=== PATIENT | male | born 1955 | race Caucasian/White ===

== ENCOUNTER → 2017-08-25 13:37 | Outpatient (CLI) | payer OTHER, SELFPAY ==
--- NOTE | 2017-08-25 13:53 | DI.CT.S_ITS ---
PROCEDURE: CT ANGIO UE LT INDICATIONS: diminished pulse in extremity Left, lung cancer TECHNIQUE: After the administration of intravenous contrast, 2.5 mm sections acquired from the aortic arch through the symptomatic arm, with optional delayed image acquisition from the elbows to the fingers. 3-dimensional maximum intensity projection (MIP) coronal and sagital reformats, and/or 3-dimensional volume rendering reformatting was then performed. For radiation dose reduction, the following was used: automated exposure control. COMPARISON: None. FINDINGS: Image quality: Excellent. Thoracic aorta: Normal in caliber and patent. Great vessels: There is occlusion of the proximal left subclavian artery just beyond the ostium. Distally, the left subclavian artery reconstitutes from collaterals. The left carotid artery and innominate artery are patent and normal caliber. The right subcutan and carotid arteries patent. Upper extremity: The distal left Subcutan artery reconstitutes from collaterals. The axillary artery is patent and normal in caliber. Extravascular tissues: There is a left lower lobe lung mass. Mediastinal and hilar lymphadenopathy is present consistent with metastases. Moderate emphysema. IMPRESSION: 1. Occlusion of the proximal left subclavian artery. The distally left subclavian artery reconstitutes from collaterals. The axillary artery appears patent and normal in caliber. 2. A left lower lobe lung mass. 3. Mediastinal and hilar lymphadenopathy consistent with metastasis. 4. Moderate emphysema. The result was discussed with Kesha Sommers in Dr. Katz's office. She will give the result to the on-call physician covering Dr. Katz. Dictated by: Ciara Gonsales M.D. on 08/25/2017 at 16:54 Approved by: Ciara Gonsales M.D. on 08/25/2017 at 17:01
--- NOTE | 2017-08-25 13:53 | DI.CT.S_ITS ---
PROCEDURE: CT ANGIO CHEST INDICATIONS: lung cancer with metastasis TECHNIQUE: After the administration of intravenous contrast, 2 mm thick sections acquired from the pulmonary apices to the posterior costophrenic angles. 3-dimensional maximum intensity projection (MIP) coronal and sagittal reformats were then acquired through the thorax. For radiation dose reduction, the following was used: automated exposure control, adjustment of mA and/or kV according to patient size. COMPARISON: [facility], CT, CT ANGIO UE LT, 08/25/2017, 13:50. [facility], CT, CHEST/ABD/PEL WITH CONTRAST, 11/01/2016, 11:29. [facility], CT, CHEST/ABD/PEL WITH CONTRAST, 04/27/2017, 12:03. FINDINGS: Image quality: Excellent. Pulmonary arteries: Pulmonary arteries are normal in size, and demonstrate no intraluminal filling defects to suggest central pulmonary embolism. Lungs and pleura: There is a 2.2 cm left lower lobe mass in the retrocardiac region, unchanged in size. There is left basilar atelectasis. Moderate centrilobular emphysema. No pleural effusions or pneumothorax. Central and peripheral airways are patent. Mediastinum: Heart size is normal, without pericardial effusion. Stable mediastinal and hilar lymphadenopathy. A 1.5 cm precarinal lymph node and a 2.0 cm subcarinal lymph node are both unchanged in size compared to the last exam on 04/27/2017. Prominent hilar lymph nodes are also unchanged. Thoracic aorta is normal in caliber and enhancement. There is proximal occlusion of the left subclavian artery Esophagus is normal in caliber, without hiatal hernia. Bones and chest wall: No suspicious bony lesions. Ribs and thoracic spine appear intact throughout. Thyroid gland is normal. No axillary or supraclavicular adenopathy. Abdomen: Visualized upper abdominal solid organs appear normal in the early arterial phase of enhancement. IMPRESSION: 1. No evidence for central pulmonary embolism. 2. Stable left lower lung mass. 3. Stable mediastinal lymphadenopathy. 4. Occlusion of the proximal left subclavian artery. The result was discussed with CAYLA Sommers, Dr. Shelby Katz's nurse prior to dictation. Dictated by: Ciara Gonsales M.D. on 08/25/2017 at 16:41 Approved by: Ciara Gonsales M.D. on 08/25/2017 at 16:54
== END ==
PROVIDERS: PCP Family Medicine; Visit Provider Internal Medicine
DX: C34.90 Malignant neoplasm of unspecified part of unspecified bronchus or lung (principal); R59.0 Localized enlarged lymph nodes; I70.208 Unspecified atherosclerosis of native arteries of extremities, other extremity
CPT/HCPCS: 71275; 73206; Q9967

== ENCOUNTER → 2017-09-29 13:26 | Outpatient (CLI) | payer OTHER, SELFPAY ==
--- NOTE | 2017-09-29 14:11 | DI.CT.S_ITS ---
PROCEDURE: CT CHEST ABD PEL W CON INDICATIONS: restaging for lung cancer TECHNIQUE: After the administration of oral and intravenous contrast, 5 mm thick sections acquired from the lung apices to the symphysis. 5 mm coronal and sagittal reformats were performed, with additional 7 mm coronal MIP reformats through the lungs. For radiation dose reduction, the following was used: automated exposure control, adjustment of mA and/or kV according to patient size. COMPARISON: [facility], [place], PET NECK TO MID THIGH STD, 08/15/2015, 13:59. [facility], CT, CHEST/ABDOMEN WITH CONTRAST, 04/15/2016, 10:42. [facility], CT, CHEST/ABDOMEN WITH CONTRAST, 07/16/2016, 14:58. [facility], CT, CHEST/ABD/PEL WITH CONTRAST, 11/01/2016, 11:29. [facility], CT, CHEST/ABD/PEL WITH CONTRAST, 04/27/2017, 12:03. [facility], CT, CT ANGIO CHEST, 08/25/2017, 13:50. FINDINGS: Image quality: Excellent. CHEST: Lungs and pleura: Upper lobe predominant centrilobular emphysema. In the anteromedial left lower lobe is again noted a 2 cm mass, unchanged. In the posteromedial left lower lobe, series 3/image 54, at the level of the diaphragm, is a new 6.3 mm slightly spiculated nodule that is suspect for a satellite metastasis. No pleural effusions or pneumothorax. Central and peripheral airways appear patent and normal in caliber. Mediastinum: Heart size is normal. No pericardial effusion. Stable mediastinal and hilar adenopathy by size criteria, precarinal node measuring 15 mm and subcarinal measuring 20 mm as before. Thoracic aorta and central pulmonary arteries are normal in size. Occlusion of the left subclavian artery in the proximal segment, reconstituted distally by collateral flow, is again noted. Esophagus is normal in caliber. No hiatal hernia. Chest wall: Right-sided port with tip in the SVC. No axillary or supraclavicular adenopathy by size criteria. Thyroid gland appears normal. ABDOMEN: Solid organs: Liver is normal in size and enhancement. Gallbladder appears normal. Biliary system is non dilated. Pancreas enhances normally. Spleen is normal in size and enhancement. No definite adrenal nodules, although the left adrenal is plump. Kidneys demonstrate normal size and enhancement, without hydronephrosis. Peritoneum and bowel: Bowel loops demonstrate normal wall thickness and caliber. Surgical sutures at the rectosigmoid junction No free fluid or air. Nodes and vessels: No retroperitoneal or mesenteric adenopathy by size criteria. Aorta and inferior vena cava are normal in size. Miscellaneous: No ventral hernias. PELVIS: Genitourinary: Bladder wall thickness is normal. Miscellaneous: No inguinal hernias or adenopathy. Bones: No suspicious bony lesions. No vertebral body compression fractures. IMPRESSION: 1. A new subcentimeter spiculated nodule is evident at the left lung base posteromedially. Attention on follow up study recommended. Exam otherwise is stable with the left lower lobe mass lesion, mediastinal adenopathy and upper lobe emphysema again noted. 2. Occlusion left subclavian artery as before. 3. Evidence of prior bowel resection at the rectosigmoid junction. Dictated by: Bill Rader M.D. on 09/29/2017 at 16:10 Approved by: Bill Rader M.D. on 09/29/2017 at 16:34
== END ==
PROVIDERS: PCP Family Medicine; Visit Provider Nurse Practitioner Gerontology
DX: C34.90 Malignant neoplasm of unspecified part of unspecified bronchus or lung (principal); I70.208 Unspecified atherosclerosis of native arteries of extremities, other extremity; K63.89 Other specified diseases of intestine
CPT/HCPCS: 71260; 74177; Q9967

== ENCOUNTER → 2017-12-01 12:39 | Outpatient (CLI) | payer OTHER, SELFPAY ==
--- NOTE | 2017-12-01 13:05 | DI.CT.S_ITS ---
PROCEDURE: CT CHEST ABD PEL W CON INDICATIONS: new left lung nodule CT 09/29/2017 TECHNIQUE: After the administration of oral and intravenous contrast, 5 mm thick sections acquired from the lung apices to the symphysis. 5 mm coronal and sagittal reformats were performed, with additional 7 mm coronal MIP reformats through the lungs. For radiation dose reduction, the following was used: automated exposure control, adjustment of mA and/or kV according to patient size. COMPARISON: [facility], CT, CHEST/ABD/PEL WITH CONTRAST, 04/27/2017, 12:03. [facility], CT, CHEST/ABD/PEL WITH CONTRAST, 11/01/2016, 11:29. [facility], CT, CT CHEST ABD PEL W CON, 09/29/2017, 15:19. FINDINGS: Image quality: Excellent. CHEST: Lungs and pleura: No acute consolidation. 2 cm mass seen in the anteromedial left lower lobe is grossly unchanged image 60 series 6. The previously described posteromedial left lower lobe nodule (6-7 mm) is less conspicuous on the current examination are decreased in size. This appearance could be related to slice registration artifact. There is background emphysematous change. Scattered atelectasis as before No pleural effusions or pneumothorax. Central and peripheral airways appear patent and normal in caliber. The Mediastinum: Heart size is normal. No pericardial effusion. Right hilar lymph nodes are grossly unchanged image 42 series 7. There also precarinal and subcarinal lymph nodes which are grossly unchanged. Occlusion of the left subclavian artery as before Esophagus is normal in caliber. No hiatal hernia. Chest wall: No axillary or supraclavicular adenopathy by size criteria. Thyroid gland negative. ABDOMEN: Solid organs: Liver is normal in size and enhancement. Gallbladder negative. Biliary system is non dilated. Pancreas enhances normally. Spleen is normal in size and enhancement. No adrenal nodules. Kidneys demonstrate normal size and enhancement, without hydronephrosis. Peritoneum and bowel: Bowel loops demonstrate normal wall thickness and caliber. No free fluid or air. Nodes and vessels: No retroperitoneal or mesenteric adenopathy by size criteria. Aorta and inferior vena cava are normal in size. Miscellaneous: No ventral hernias. PELVIS: Genitourinary: Bladder wall thickness is normal. Miscellaneous: No inguinal hernias or adenopathy. Bones: No suspicious bony lesions. No vertebral body compression fractures. IMPRESSION: Redemonstrated anteromedial left lower lobe mass which is grossly unchanged. Mediastinal lymphadenopathy as before The previously described additional sub-centimeter posteromedial left lower lobe nodule appears less conspicuous although potentially this could be related to slice registration artifact given the small size. Elsewhere, grossly stable exam Dictated by: Dandre Yañez M.D. on 12/01/2017 at 16:38 Approved by: Dandre Yañez M.D. on 12/01/2017 at 16:47
== END ==
PROVIDERS: PCP Family Medicine; Visit Provider Nurse Practitioner Gerontology
DX: C34.90 Malignant neoplasm of unspecified part of unspecified bronchus or lung (principal); R59.0 Localized enlarged lymph nodes
CPT/HCPCS: 71260; 74177; Q9967

== ENCOUNTER → 2018-03-09 14:03 | Outpatient (CLI) | payer OTHER, SELFPAY ==
--- NOTE | 2018-03-09 | DI.CT.S_ITS ---
PROCEDURE: CT CHEST ABD PEL W CON INDICATIONS: Assess response to treatment, previous imaging new spiculated lung TECHNIQUE: After the administration of oral and intravenous contrast, 5 mm thick sections acquired from the lung apices to the symphysis. 5 mm coronal and sagittal reformats were performed, with additional 7 mm coronal MIP reformats through the lungs. For radiation dose reduction, the following was used: automated exposure control, adjustment of mA and/or kV according to patient size. COMPARISON: [facility], [place], PET NECK TO MID THIGH STD, 08/15/2015, 13:59. [facility], CT, CHEST/ABD/PEL WITH CONTRAST, 11/01/2016, 11:29. [facility], CT, CHEST/ABD/PEL WITH CONTRAST, 04/27/2017, 12:03. [facility], CT, CT CHEST ABD PEL W CON, 09/29/2017, 15:19. [facility], CT, CT CHEST ABD PEL W CON, 12/01/2017, 13:25. FINDINGS: Image quality: Excellent. CHEST: Lungs and pleura: There is a spiculated mass in the left lower lobe anteriorly just behind the heart measuring 2.5 x 2.2 cm. Compared to the last examination, the mass appears unchanged in size. A 0.7 x 1.4 cm pleural thickening is seen along the major fissure lateral to the mass, similar in appearance. A 5 mm nodule is seen in the left lung base just above the left hemidiaphragm, slightly decreased in size compared to 12/01/2017 (previously 8 mm). Moderate to severe centrilobular emphysema. There is left lower lobes scars and atelectasis. No acute airspace opacities. No pleural effusions or pneumothorax. Central and peripheral airways appear patent and normal in caliber. Mediastinum: Heart size is normal. No pericardial effusion. There is a 1.5 x 2.3 cm subcarinal lymph node, which appears unchanged in size. A 1.5 x 1.6 cm precarinal lymph node is also stable. Several prominent right hilar lymph nodes are unchanged. Thoracic aorta and central pulmonary arteries are normal in size. Again noted is occlusion of the left subclavian artery. Esophagus is normal in caliber. No hiatal hernia. Chest wall: No axillary or supraclavicular adenopathy by size criteria. Thyroid gland is normal. ABDOMEN: Solid organs: Liver is normal in size and enhancement. Gallbladder is normal. Biliary system is non dilated. Pancreas enhances normally. Spleen is normal in size and enhancement. No adrenal nodules. Kidneys demonstrate normal size and enhancement, without hydronephrosis. Peritoneum and bowel: There is surgical anastomosis at the rectosigmoid junction. Bowel loops demonstrate normal wall thickness and caliber. No free fluid or air. Nodes and vessels: No retroperitoneal or mesenteric adenopathy by size criteria. Aorta and inferior vena cava are normal in size. Miscellaneous: No ventral hernias. PELVIS: Genitourinary: Bladder wall thickness is normal. Miscellaneous: No inguinal hernias or adenopathy. Bones: There is a 5 cm lucency in sternum, unchanged. This lesion demonstrates no increased FDG uptake on a prior head CT head, consistent with benign etiology No vertebral body compression fractures. IMPRESSION: 1. Stable spiculated mass in the left lower lobe. Thickening of the left major fissure adjacent to the mass appear similar. There is slight interval decrease in size of a smaller nodule in the left lung base. 2. Stable mediastinal and hilar lymphadenopathy. 3. 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 Dictated by: Ciara Gonsales M.D. on 03/09/2018 at 15:15 Approved by: Ciara Gonsales M.D. on 03/09/2018 at 18:18
== END ==
PROVIDERS: PCP Family Medicine; Visit Provider Internal Medicine Hematology & Oncology
DX: C18.9 Malignant neoplasm of colon, unspecified (principal); C34.00 Malignant neoplasm of unspecified main bronchus; R59.0 Localized enlarged lymph nodes; I77.1 Stricture of artery
CPT/HCPCS: 71260; 74177; Q9967

== ENCOUNTER → 2018-08-14 14:28 | Outpatient (CLI) | payer OTHER, SELFPAY ==
--- NOTE | 2018-08-14 14:31 | DI.CT.S_ITS ---
PROCEDURE: CT CHEST ABD PEL W CON INDICATIONS: Lung cancer follow up TECHNIQUE: After the administration of oral and intravenous contrast, 5 mm thick sections acquired from the lung apices to the symphysis. 5 mm coronal and sagittal reformats were performed, with additional 7 mm coronal MIP reformats through the lungs. For radiation dose reduction, the following was used: automated exposure control, adjustment of mA and/or kV according to patient size. COMPARISON: [place], [place], PET/CT SKULL BASE TO MID THIGH, 11/22/2014, 10:31. [facility], CT, CHEST/ABDOMEN WITH CONTRAST, 09/11/2014, 9:43. [facility], CT, CHEST/ABDOMEN WITH CONTRAST, 04/15/2016, 10:42. [place], [place], PET NECK TO MID THIGH STD, 08/15/2015, 13:59. [facility], CT, CT CHEST ABD PEL W CON, 03/09/2018, 14:49. [facility], CT, CT CHEST ABD PEL W CON, 12/01/2017, 13:25. FINDINGS: Image quality: Mildly degraded by patient motion during image acquisition through the lung bases. CHEST: Lungs and pleura: No acute airspace opacities. The left lower lobe lung mass near the pericardial border has very slightly diminished in size with reference to the prior most recent CT scan from 03/09/18. Again noted is severe COPD with centrilobular emphysema throughout. No pleural effusions or pneumothorax. Central and peripheral airways appear patent and normal in caliber except for stable fibrotic change at the left lower lobe in the area of the prior lung mass, presumably from radiation therapy. Mediastinum: Heart size is normal. No pericardial effusion. No mediastinal or hilar adenopathy by size criteria. Thoracic aorta and central pulmonary arteries are normal in size. Esophagus is normal in caliber. No hiatal hernia. There is a single lucency within the sternal marrow space exactly at the midline, previously present over multiple prior CT scans including in 2015, measuring only 8 mm in maximal dimension. This likely is benign. Chest wall: No axillary or supraclavicular adenopathy by size criteria. Thyroid gland appears normal. ABDOMEN: Solid organs: Liver is normal in size and enhancement. Gallbladder appears normal. Biliary system is non dilated. Pancreas enhances normally. Spleen is normal in size and enhancement. No adrenal nodules. Kidneys demonstrate normal size and enhancement, without hydronephrosis. Peritoneum and bowel: Bowel loops demonstrate normal wall thickness and caliber. No free fluid or air. Nodes and vessels: No retroperitoneal or mesenteric adenopathy by size criteria. Aorta and inferior vena cava are normal in size. Miscellaneous: No ventral hernias. PELVIS: Genitourinary: Bladder wall thickness is normal. Miscellaneous: No inguinal hernias or adenopathy. Bones: No suspicious bony lesions. No vertebral body compression fractures. IMPRESSION: Slight interval reduction in size of the medial left lower lobe lung mass with adjacent fibrotic change, consistent with sequela of radiation therapy into that area. Severe COPD is again noted, no definite metastatic disease is found. As discussed, and 8mm faint lucency within the midline of the sternal marrow space has been present over multiple prior CT scans including in September of 2014 without change and likely benign in origin. Dictated by: Terrell Fishman M.D. on 08/14/2018 at 16:27 Approved by: Terrell Fishman M.D. on 08/14/2018 at 16:37
== END ==
PROVIDERS: PCP Family Medicine; Visit Provider Internal Medicine Hematology & Oncology
DX: C34.32 Malignant neoplasm of lower lobe, left bronchus or lung (principal); J43.2 Centrilobular emphysema
CPT/HCPCS: 71260; 74177; Q9967

== ENCOUNTER 2018-11-14 11:59 | Emergency (ER) | payer OTHER, SELFPAY ==
[2018-11-14 12:07] VITALS: BP 152/89; PULSE 74; RESP 13; TEMP 36.4; O2SAT 89
--- NOTE | 2018-11-14 12:20 | ED_ITS ---
HPI - URI/Sore Throat General Chief Complaint: Upper Respiratory Symptoms Stated Complaint: chemo 11/09 since sob Time Seen by Provider: 11/14/18 12:05 Source: patient and family Mode of arrival: Wheelchair Limitations: no limitations History of Present Illness HPI Narrative: 63-year-old male smoker with history of COPD and lung cancer currently receiving chemotherapy presents with a significant other and a chief c omplaint of increased shortness of breath over the past week or so. He has had no fever chills but does have a cough with increased wheeze. He does not use bronchodilators at home. He has had no sputum production and denies nausea, vomiting nor generalized weakness. He has had a bit of a runny nose and some sneezing. MD Complaint: cough, rhinorrhea and nasal congestion Onset (ago): day(s) Duration: constant Severity: moderate Relieving factors: nothing Exacerbating factors: nothing Able to tolerate fluids by mouth: Yes Treatments prior to arrival: none Related Data Home Medications Medication Instructions Recorded Confirmed polyethylene glycol 3350 [Miralax] 1 dose PO PRN PRN #0 01/05/17 11/09/18 aspirin 81 mg PO DAILY 12/02/17 11/09/18 folic acid 2 mg PO DAILY 04/27/18 11/09/18 hydrocortisone 10 mg PO QPM 11/14/18 11/14/18 hydrocortisone 20 mg PO QAM 11/14/18 11/14/18 oxycodone-acetaminophen 1 tab PO Q6H PRN 11/14/18 11/14/18 Previous Rx's Medication Instructions Recorded promethazine 25 mg PO Q4-6H PRN #120 tab 08/17/18 amlodipine 5 mg tablet 5 mg PO DAILY #90 tab 09/06/18 famotidine 20 mg PO BEDTIME #90 tab 09/28/18 lorazepam 0.5 mg PO BID-TID PRN #45 tab 11/09/18 albuterol sulfate 2 puff INHALATION Q4-6H PRN #8 gram 11/14/18 Allergies Allergy/AdvReac Type Severity Reaction Status Date / Time ciprofloxacin AdvReac Intermediate SEVERE Verified 09/06/18 16:09 NAUSEA zolpidem [From Ambien] AdvReac Intermediate Nausea Verified 09/06/18 16:09 Review of Systems Constitutional Constitutional: Denies chills, Denies fatigue, Denies fever(s), Denies frequent falls, Denies lethargy and Denies weakness Eyes Eyes: Denies change in vision, Denies eye discharge, Denies irritation and Denies loss of vision ENT Ears, Nose, Mouth, and Throat: Denies change in voice, Denies dizziness, Denies neck pain, Denies sore throat and Denies throat swelling Cardiovascular Cardiovascular: Denies chest pain, Denies irregular heart rhythm, Denies lightheadedness, Denies palpitations, Denies dyspnea, Denies dyspnea on exertion and Denies orthopnea Respiratory Respiratory: Reports cough, Denies dyspnea, Denies dyspnea on exertion and Reports wheezing Gastrointestinal Gastrointestinal: Denies abdominal pain, Denies change in bowel habits, Denies diarrhea, Denies nausea and Denies vomiting Genitourinary Genitourinary: Denies hematuria, Denies flank pain, Denies urinary incontinence and Denies urinary urgency Musculoskeletal Musculoskeletal: Denies back pain, Denies muscle weakness, Denies neck pain, Denies numbness and Denies tingling Integumentary/Breasts Skin/Breast: Denies pruritus, Denies erythema, Denies rash and Denies wounds Neurologic Neurologic: Denies behavioral changes, Denies confusion, Denies dizziness, Denies frequent falls, Denies loss of vision, Denies numbness, Denies tingling and Denies weakness Psychiatric Psychiatric: Denies anxiety, Denies behavioral changes, Denies confusion, Denies depression, Denies homicidal ideation and Denies suicidal ideation Endocrine Endocrine: Denies fatigue, Denies flushing and Denies palpitations Hematologic/Lymphatic Hematologic/Lymphatic: Denies easy bruising Allergic/Immunologic Allergic/Immunologic: Denies urticaria, Denies throat swelling and Reports wheezing [facility] Medical History Atrial fibrillation (Resolved 04/2014) Back pain (Chronic) Frequent UTI (Chronic) Lung cancer (Resolved 04/2014) Surgical History History of esophagogastroduodenoscopy (EGD) (Resolved 10/20/16) Status post biopsy (Resolved 04/2014) Status post colonoscopy (Resolved 10/20/16) Status post hemorrhoidectomy (Resolved 07/02/08) Social History Smoking Status: Current some day smoker Social History Smoking Status: Current some day smoker Exam Narrative Exam Narrative: GENERAL: [63] year old patient appears stated age. Chronically ill, thin with temporal wasting, no significant respiratory distress HEAD: Atraumatic. Normocephalic. EYES: Pupils equal round and reactive. Extraocular motions intact. No scleral icterus. No injection or drainage. ENT: Nose without bleeding, purulent drainage. Throat without erythema, to nsillar hypertrophy or exudate. Airway patent. NECK: Trachea midline. Non tender CARDIOVASCULAR: Regular rate and rhythm without murmurs, gallops, or rubs. RESPIRATORY: Decreased breath sounds bilaterally with prolonged expiratory phase and a faint hint of expiratory wheeze GASTROINTESTINAL: Abdomen soft, non-tender, nondistended. EXTREMITIES: No edema or joint tenderness. BACK: Nontender without deformity or crepitance. No flank tenderness. NEURO: AOx3. SKIN: No rash or erythema of visible areas Initial Vital Signs Initial Vital Signs: Vital Signs Temperature 97.6 F 11/14/18 12:07 Pulse Rate 74 11/14/18 12:07 Respiratory Rate 13 11/14/18 12:07 Blood Pressure 152/89 H 11/14/18 12:07 Pulse Oximetry 89 L 11/14/18 12:07 Course Orders Ordered: ED Orders 11/14/18 12:00 B Type Natriuretic Peptide Stat Basic Metabolic Panel Stat Complete Blood Count AUTO DIFF Stat Lactate (Lactic Acid) Stat Magnesium Stat Procalcitonin Stat Troponin & CK Cardiac Panel Stat 11/14/18 12:29 XR chest 2V Stat EKG-12 Lead Stat Measure peak expiratory flow ONCE RT Consult Eval and Treat Now 11/14/18 12:36 Consult to Respiratory Therapy Evaluate & Treat 11/14/18 13:25 Blood Culture Stat Discontinued Medications Albuterol/Ipratropium (Duoneb) 3 ml INH NOW ONE Stop: 11/14/18 12:37 Last Admin: 11/14/18 12:47 Dose: 3 ml Documented by: ZITA Vital Signs Vital signs: Vital Signs - 8 hr 11/14/18 12:07 11/14/18 12:49 11/14/18 13:24 Temperature 97.6 F Pulse Rate 74 64 64 Respiratory Rate 13 16 18 Blood Pressure 152/89 H Pulse Oximetry 89 L 92 92 11/14/18 13:41 Temperature Pulse Rate 74 Respiratory Rate 20 Blood Pressure Pulse Oximetry 91 MDM - URI/Sore Throat Lab Data Result diagrams: 11/14/18 12:00 11/14/18 12:00 Labs: Lab Results 11/14/18 11/14/18 11/14/18 Range/Units 12:00 12:00 12:00 WBC 9.4 (4.5-11.0) X10^3/uL RBC 5.60 (4.5-5.9) X10^6/uL Hgb 17.2 (13.5-17.5) g/dL Hct 52.0 (41-53) % MCV 93.0 (80-100) fL MCH 30.8 (26-34) PG MCHC 33.1 (30-36) % RDW 14.1 (11.6-14.8) % Plt Count 367 (150-400) X10^3/uL Neut % (Auto) 60.8 (50-75) % Lymph % (Auto) 20.4 L (25-40) % [place] % (Auto) 10.7 (3-14) % Eos % (Auto) 7.0 H (2-4) % Baso % (Auto) 1.1 (0-2) % Neut # (Auto) 5700 (3758-9156) /uL Lymph # (Auto) 1900 (7448-6512) /uL [place] # (Auto) 1000 H (0-900) /uL Eos # (Auto) 700 H (0-450) /uL Baso # (Auto) 100 (0-100) /uL Sodium 141 (137-145) mmol/L Potassium 4.0 (3.4-5.1) mmol/L Chloride 101 (98-107) mmol/L Carbon Dioxide 29 (22-32) mmol/L BUN 19 (9-20) mg/dL Creatinine 1.10 (0.66-1.25) mg/dL Estimated GFR > 60.0 (>60) mL/min BUN/Creatinine Ratio 17.3 (6-22) Glucose 109 (80-110) mg/dL Lactate (0.7-2.1) mmol/L Calcium 9.7 (8.4-10.2) mg/dL Magnesium 2.2 (1.6-2.3) mg/dL Total Creatine Kinase 98 (55-170) U/L CK-MB (CK-2) TNP CK-MB (CK-2) Rel Index TNP Troponin I < 0.012 (0.01-0.034) ng/mL B-Natriuretic Peptide < 100 (<100) Procalcitonin < 0.05 (<0.5) ng/mL 11/14/18 Range/Units 12:00 WBC (4.5-11.0) X10^3/uL RBC (4.5-5.9) X10^6/uL Hgb (13.5-17.5) g/dL Hct (41-53) % MCV (80-100) fL MCH (26-34) PG MCHC (30-36) % RDW (11.6-14.8) % Plt Count (150-400) X10^3/uL Neut % (Auto) (50-75) % Lymph % (Auto) (25-40) % [place] % (Auto) (3-14) % Eos % (Auto) (2-4) % Baso % (Auto) (0-2) % Neut # (Auto) (8738-4788) /uL Lymph # (Auto) (3414-1811) /uL [place] # (Auto) (0-900) /uL Eos # (Auto) (0-450) /uL Baso # (Auto) (0-100) /uL Sodium (137-145) mmol/L Potassium (3.4-5.1) mmol/L Chloride (98-107) mmol/L Carbon Dioxide (22-32) mmol/L BUN (9-20) mg/dL Creatinine (0.66-1.25) mg/dL Estimated GFR (>60) mL/min BUN/Creatinine Ratio (6-22) Glucose (80-110) mg/dL Lactate 1.4 (0.7-2.1) mmol/L Calcium (8.4-10.2) mg/dL Magnesium (1.6-2.3) mg/dL Total Creatine Kinase (55-170) U/L CK-MB (CK-2) CK-MB (CK-2) Rel Index Troponin I (0.01-0.034) ng/mL B-Natriuretic Peptide (<100) Procalcitonin (<0.5) ng/mL Imaging Data Chest x-ray: Radiologist's impression: [facility] [address] [place] [id number] XRay Report Signed Patient: Daryl Peña RMR#: [id number] : 6Acct:[id number] Age/Sex: 63 / MDate of Service: 11/14/18 Loc: ED Accession Number: [id number] Procedure: XR chest 2V Ordering Provider: Abundio Lieberman D.O. PROCEDURE: XR CHEST 2V INDICATIONS: shortness of breath TECHNIQUE: 2 views of the chest were acquired. COMPARISON: [facility], CT, CT CHEST ABD PEL W CON, 08/14/2018, 15:51. [facility], CR, CHEST 2 VIEW, 05/23/2015, 11:39. FINDINGS: Surgical changes and devices: Right chest wall Port-A-Cath tip is in SVC Lungs and pleura: Blunting of left costophrenic angle is again seen suggestive of pleural thickening. Linear scarring/atelectasis in left lower lung field is seen. Patient's known left lower lobe mass is again seen, not significantly changed from recent CT study. No pneumothorax. Chronic emphysematous changes are seen. Mediastinum: Mediastinal contours are normal. Heart size is normal. Bones and chest wall: No suspicious bony abnormalities. Soft tissues appear unremarkable. IMPRESSION: Chronic left pleural thickening. Small left lower lobe mass. Left lower lobe linear scarring/atelectasis. No definite focal infiltrate or gross pneumothorax. COPD. Dictated by: Robbie Mosquera M.D. on 11/14/2018 at 13:15 Approved by: Robbie Mosquera M.D. on 11/14/2018 at 13:17 [facility] Narrative Medical decision making narrative: Patient with lung cancer on chemo actually feels quite well given the circumstances. He feels tremendous improvement after bronchodilators. There is no suggestion of underlying infection other than a viral etiology. We talked at length about the possibility of doing extensive CT scans with IV contrast but patient refuses at this point in time given how well he feels. Patient given return precautions and has had questions answered to his apparent satisfaction Discharge Plan Departure Patient Disposition: Home Clinical Impression: Acute exacerbation of chronic obstructive pulmonary disease (COPD) Upper respiratory infection Qualifiers: URI type: unspecified viral URI Qualified Code(s): J06.9 - Acute upper respiratory infection, unspecified Discharge Date/Time: 11/14/18 14:59 Instructions: DI for Shortness of Breath Activity Restrictions/Additional Instructions: *You have been diagnosed with [acute on chronic dyspnea, likely viral upper respiratory infection] *What to do: *Take medications as directed: your prescription has been sent to [facility] at your request *Follow up with your primary care provider in 2-3 days, call for an appointment. Let them know you were seen in the Emergency Department and that we ask that you be seen in follow up *Return to ER if you should have any new, worsening or concerning symptoms Prescriptions: New albuterol sulfate 90 mcg/actuation HFA aerosol inhaler 2 puff INHALATION Q4-6H PRN (Reason: shortness of breath or wheezing) Qty: 8 RF: 0 No Action polyethylene glycol 3350 [Miralax] 17 gram/dose Powder 1 dose PO PRN PRN (Reason: Constipation) Qty: 0 RF: 0 amlodipine 5 mg tablet 5 mg PO DAILY Qty: 90 RF: 3 aspirin 81 mg Tablet,Delayed Release (Dr/Ec) 81 mg PO DAILY RF: 0 folic acid 1 mg Tablet 2 mg PO DAILY RF: 0 promethazine 25 mg Tablet 25 mg PO Q4-6H PRN (Reason: Nausea) Qty: 120 RF: 0 famotidine 20 mg Tablet 20 mg PO BEDTIME Qty: 90 RF: 0 lorazepam 0.5 mg tablet 0.5 mg PO BID-TID PRN (Reason: Anxiety) Qty: 45 RF: 0 oxycodone-acetaminophen 10-325 mg tablet 1 tab PO Q6H PRN (Reason: CANCER PAIN) RF: 0 hydrocortisone 10 mg tablet 20 mg PO QAM RF: 0 hydrocortisone 10 mg tablet 10 mg PO QPM RF: 0 Referrals: Awa Deng DO [Primary Care Provider] -
--- NOTE | 2018-11-14 12:29 | DI.RAD.S_ITS ---
PROCEDURE: XR CHEST 2V INDICATIONS: shortness of breath TECHNIQUE: 2 views of the chest were acquired. COMPARISON: [facility], CT, CT CHEST ABD PEL W CON, 08/14/2018, 15:51. [facility], CR, CHEST 2 VIEW, 05/23/2015, 11:39. FINDINGS: Surgical changes and devices: Right chest wall Port-A-Cath tip is in SVC Lungs and pleura: Blunting of left costophrenic angle is again seen suggestive of pleural thickening. Linear scarring/atelectasis in left lower lung field is seen. Patient's known left lower lobe mass is again seen, not significantly changed from recent CT study. No pneumothorax. Chronic emphysematous changes are seen. Mediastinum: Mediastinal contours are normal. Heart size is normal. Bones and chest wall: No suspicious bony abnormalities. Soft tissues appear unremarkable. IMPRESSION: Chronic left pleural thickening. Small left lower lobe mass. Left lower lobe linear scarring/atelectasis. No definite focal infiltrate or gross pneumothorax. COPD. Dictated by: Robbie Mosquera M.D. on 11/14/2018 at 13:15 Approved by: Robbie Mosquera M.D. on 11/14/2018 at 13:17
[2018-11-14] MEDS: ALBUTEROL/IPRATROPIUM 3 ML AMPUL INH (12:47)
[2018-11-14 12:49] VITALS: PULSE 64; RESP 16; O2SAT 92
[2018-11-14 13:11] LABS: Add Manual Diff / Slide Review NO; Basophils Absolute Auto 100 /uL (0-100); Basophils Percent Auto 1.1 % (0-2); Eosinophils Absolute Auto 700 /uL (0-450); Hemoglobin 17.2 g/dL (13.5-17.5); Lymphocytes Absolute Auto 1900 /uL (1100-4500); Lymphocytes Percent Auto 20.4 % (25-40); Mean Corpuscular HGB Conc 33.1 % (30-36); Mean Corpuscular Hemoglobin 30.8 PG (26-34); Monocytes Absolute Auto 1000 /uL (0-900); Monocytes Percent Auto 10.7 % (3-14); Neutrophils Absolute Auto 5700 /uL (1500-7000); Neutrophils Percent Auto 60.8 % (50-75); Platelet Count 367 X10^3/uL (150-400); Red Cell Distribution Width 14.1 % (11.6-14.8); White Blood Cell Count 9.4 X10^3/uL (4.5-11.0)
[2018-11-14 13:24] VITALS: PULSE 64; RESP 18; O2SAT 92
[2018-11-14 13:26] LABS: Lactate (Lactic Acid) 1.4 mmol/L (0.7-2.1)
[2018-11-14 13:27] LABS: BUN Creatinine Ratio 17.3 (6-22); Blood Urea Nitrogen 19 mg/dL (9-20); Calcium 9.7 mg/dL (8.4-10.2); Carbon Dioxide 29 mmol/L (22-32); Chloride 101 mmol/L (98-107); Creatine Kinase 98 U/L (55-170); Estimated Glomerular Filt Rate > 60.0 mL/min (>60); Glucose 109 mg/dL (80-110); HEMOLYSIS < 15 (0-50); Magnesium 2.2 mg/dL (1.6-2.3); Sodium 141 mmol/L (137-145)
[2018-11-14 13:35] LABS: B Type Natriuretic Peptide < 100 (<100)
[2018-11-14 13:39] LABS: Troponin I < 0.012 ng/mL (0.01-0.034)
[2018-11-14 13:41] VITALS: PULSE 74; RESP 20; O2SAT 91
[2018-11-14 13:53] LABS: Procalcitonin < 0.05 ng/mL (<0.5)
== END 2018-11-14 14:59 | disposition home or self-care (01) ==
PROVIDERS: Emergency Provider Emergency Medicine; PCP Family Medicine
DX: J44.9 Chronic obstructive pulmonary disease, unspecified (principal); J06.9 Acute upper respiratory infection, unspecified; C34.90 Malignant neoplasm of unspecified part of unspecified bronchus or lung
CPT/HCPCS: 36415; 71046; 80048; 82550; 83605; 83735; 83880; 84145; 84484; 85025; 87040; 93005; 94150; 94640; 99283; 99285

== ENCOUNTER → 2018-12-15 14:50 | Outpatient (CLI) | payer OTHER, SELFPAY ==
--- NOTE | 2018-12-19 15:25 | PM.PFT.1 ---
Pulmonary Function Test Referral & Results Date Patient Seen: 12/15/18 Requesting provider: Awa Deng Results: The spirometry demonstrates an FVC of 4.19 L which is 89% of predicted. The FEV1 was measured at 1.54 L which is 43% of predicted. The FEV1/FVC ratio was 37 which is 40% of predicted. Following the administration of bronchodilator there was no appreciable change. Lung volumes show an SVC of 4.65 L which is 99% of predicted. The diffusing capacity was measured at 7.3 for which is 22% of predicted. No hemoglobin value was provided, so no correction for potential anemia could be made, if appropriate. The maximum voluntary ventilation was reduced Interpretation: This study demonstrates moderately severe obstructive lung disease without evidence of significant benefit following bronchodilator There appeared to be normal lung volumes but a very significant reduction in diffusing capacity to the point where patient is likely hypoxic at times, on room air, unless anemic
== END ==
PROVIDERS: PCP Family Medicine; Visit Provider Family Medicine
DX: J44.9 Chronic obstructive pulmonary disease, unspecified (principal); Z87.891 Personal history of nicotine dependence
CPT/HCPCS: 94060; 94726; 94729

== ENCOUNTER → 2019-02-19 13:36 | Outpatient (CLI) | payer OTHER, SELFPAY ==
[2018-12-27 11:15] VITALS: BMI 22.9
--- NOTE | 2019-02-19 13:59 | DI.CT.S_ITS ---
PROCEDURE: CT CHEST ABD PEL W CON INDICATIONS: LUNGN CANCER AND COLON CANCER TECHNIQUE: After the administration of oral and intravenous contrast, 5 mm thick sections acquired from the lung apices to the symphysis. 5 mm coronal and sagittal reformats were performed, with additional 7 mm coronal MIP reformats through the lungs. For radiation dose reduction, the following was used: automated exposure control, adjustment of mA and/or kV according to patient size. COMPARISON: [facility], CT, CT ANGIO UE LT, 08/25/2017, 13:50. [facility], CT, CT ANGIO CHEST, 08/25/2017, 13:50. [facility], CT, CT CHEST ABD PEL W CON, 08/14/2018, 15:51. [facility], CT, CT CHEST ABD PEL W CON, 03/09/2018, 14:49. FINDINGS: Image quality: Excellent. CHEST: Lungs and pleura: No acute airspace opacities. The mild focal soft tissue prominence at the inferior aspect of the left medial lung base parenchymal scarring is again noted, having been stable over time, with reference to the most recent prior study. Severe COPD is present superimposed, centrilobular. No pleural effusions or pneumothorax. Central and peripheral airways appear patent and normal in caliber. Mediastinum: Heart size is normal. No pericardial effusion. No mediastinal or hilar adenopathy by size criteria. Thoracic aorta and central pulmonary arteries are normal in size. Note is made of a short segmental high grade stenosis for region of the inferior margin of the left subclavian artery just beyond its origin from the aortic arch. This was previously present in August of 2018 and August of 2017. Esophagus is normal in caliber. No hiatal hernia. Chest wall: No axillary or supraclavicular adenopathy by size criteria. Thyroid gland appears normal. ABDOMEN: Solid organs: Liver is normal in size and enhancement. Gallbladder is partially contracted.. Biliary system is non dilated. Pancreas enhances normally. Spleen is normal in size and enhancement. No adrenal nodules. Kidneys demonstrate normal size and enhancement, without hydronephrosis. Peritoneum and bowel: Bowel loops demonstrate normal wall thickness and caliber. No free fluid or air. Nodes and vessels: No retroperitoneal or mesenteric adenopathy by size criteria. Aorta and inferior vena cava are normal in size. Miscellaneous: No ventral hernias. PELVIS: Genitourinary: Bladder wall thickness is normal. Miscellaneous: No inguinal hernias or adenopathy. Bones: No suspicious bony lesions. No vertebral body compression fractures. IMPRESSION: 1. Severe COPD, long-standing smoking history. No growing pulmonary mass lesion is identified. The previously present soft tissue prominence at the inferior medial left lung base is again seen, which has not enlarged in size over time. This likely represents sequela of scarring perhaps from radiation therapy into an area of prior neoplasm. 2. No distant metastatic disease found. 3. 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 Dictated by: Terrell Fishman M.D. on 02/19/2019 at 16:20 Approved by: Terrell Fishman M.D. on 02/19/2019 at 16:29
== END ==
PROVIDERS: Family Provider Family Medicine; PCP Family Medicine; Visit Provider Internal Medicine Hematology & Oncology
DX: C34.00 Malignant neoplasm of unspecified main bronchus (principal); C18.9 Malignant neoplasm of colon, unspecified; I77.1 Stricture of artery; J44.9 Chronic obstructive pulmonary disease, unspecified
CPT/HCPCS: 71260; 74177; Q9967

== ENCOUNTER 2019-04-09 14:00 | Outpatient (RCR) | payer OTHER, SELFPAY ==
[2018-12-27 11:15] VITALS: BP 122/68; RESP 16; O2SAT 95; BMI 22.9
--- NOTE | 2018-12-27 13:48 | PR.IEVALNOTE ---
Current Diagnoses Chronic obstructive pulmonary disease, unspecified (12/27/18) Past Medical History (Last Reviewed 11/14/18 @ 19:33 by Abundio Lieberman DO) Atrial fibrillation (Resolved 04/2014) Back pain (Chronic) Frequent UTI (Chronic) Lung cancer (Resolved 04/2014) Visit Care Team Role Provider Type Awa Deng DO Attending Provider Physician Primary Care Provider Specialty: [facility] Address: [address] [place] [address], [address], [facility] Email: 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 History of Falling (Immediate or No Previous) Secondary Diagnosis (More Than 2 Medical Yes Diagnoses) Ambulatory Aid None/bed rest/nurse assist Gait/Transfer Normal/bedrest/immobile Mental Status Oriented to own ability Comment patient denies and barriers and feels he will eyal able to exercise on a regular basis noce he becomes comfortable with exercise through attending pulmonary rehabilitation Comment none NV Vital Signs Pulse Oximetry (91-100 %) 95 Nasal Cannula No Respiratory Rate (12-24 breaths/min) 16 Respiratory Effort Non-Labored Respiratory Depth Normal Assessment clear to auscultation decreased breath sounds no wheeze or rhonchi Right Arm Blood Pressure (90/60-140/90 mmHg) 122/68 Blood Pressure Method Manual Cuff/Palpation NV Six Minute Walk Test Oxygen Delivery Method Room Air Respiratory Rate (breaths/min) 16 Pulse Rate (beats/min) 87 O2 Saturation by Pulse Oximetry (%) 95 Pulse Rate (beats/min) 89 Ambulation Distance (feet) 200 O2 Saturation by Pulse Oximetry (%) 90 Pulse Rate (beats/min) 91 Ambulation Distance (feet) 200 O2 Saturation by Pulse Oximetry (%) 88 Pulse Rate (beats/min) 94 Ambulatory Distance (feet) 150 O2 Saturation by Pulse Oximetry (%) 86 Ambulation Distance (feet) 150 Pulse Rate (beats/min) 96 Ambulation Distance (feet) 100 O2 Saturation by Pulse Oximetry (%) 88 PUlse Rate (beats/min) 101 Ambulation Distance (feet) 250 O2 Saturation by Pulse Oximetry (%) 87 Respiratory Rate (breaths/min) 22 Pulse Rate (beats/min) 75 O2 Saturation by Pulse Oximetry (%) 87 Activity Tolerance Poor Adverse Reactions Desaturation,Increased Shortness of Breath,Intolerant Dyspnea Distance 1050 Wai RPE Scale 13 Oriented to RPE Scale Yes Dyspnea 3.5 Oriented to Dyspnea Scale Yes NV Exercise Goals DASI Number and Comment 4.73 mets NV Nutrition Assessment PFT Date 12/15/18 Forced Vital Capacity (FVC) 4.19 89% Slow Vital Capacity (SVC) 4.65 99% Forced Exp. Volume/Forced Vital Cap 37 48% Ratio (FEV1/FVC Ratio) Forced Expiratory Volume in 1 sec. 1.54 43% Diffusing Capacity of the Lung (DLCO) 7.34 22% Type N/A Admit Height 177.8 cm Admit Weight 72.575 kg Admit Body Mass Index (BMI) 22.9 NV Education Pre-Test Score 65% Tobacco Use Former, Quit <6 Months Tobacco Product Used cigarettes Total Years Used 50 Packs Per Day 2 Additional Comment uses nicorette gum Use No Education Topics Breathing Retraining Discussed Education Requirements on Yes Intake NV Psychosocial Initial Assess HADS Score 8 HADS Score 8 Marital Status Referral Needed Yes Referred to Counselling No Counselling Refused Yes Physician Comment Ready for Pulmonary Rehabilitation Cooperative,Motivated
--- NOTE | 2019-01-29 13:50 | PR.REVALNOTE ---
Current Diagnoses Chronic obstructive pulmonary disease, unspecified (01/29/19) Past Medical History (Last Reviewed 11/14/18 @ 19:33 by Abundio Lieberman DO) Atrial fibrillation (Resolved 04/2014) Back pain (Chronic) Frequent UTI (Chronic) Lung cancer (Resolved 04/2014) Visit Care Team Role Provider Type Awa Deng DO Attending Provider Physician Primary Care Provider Specialty: Family Practice Address: [address] [place] [address], [address], [facility] Email: [email or web address] Pulmonary Rehab Re-Evaluation NV Pulmonary Rehab. Re-Assessment Start: 12/26/18 10:20 Freq: Status: Active Protocol: Document 01/29/19 13:45 ROLAN (Rec: 01/29/19 13:50 ROLAN [id number]) NV Exercise Re-Assessment New Session Number 2-14 Type Treadmill,HALIE METs (resistance level) 2.77TM 2.70REX % Improvement 44%TM 27%HALIE Interval Training No Shortness of Breath with Exercise Yes Desaturation with Exercise No Free Weight Yes: 4# 2S 12R Band Level Yes: #4 NV Education Re-Assessment Topics Normal Anatomy and Physiology, Chronic Lung Disease,Breathing Retraining,Activities of daily living/Leisure Activities Goals Pt will Master PLB and Diaphragmatic Breathing,Pt will Master Energy Conserving Techniques,Pt will learn exercise safety,Pt will continue ED topics until completion NV Psychosocial Re-Assessment Patient in Class Regularly Yes Interventions Pt attending class regularly Goals Pt will continue to attend classes 3x wk,Participate in social and educational discussion,Received emotional support from family/friends
--- NOTE | 2019-03-08 15:25 | PR.REVALNOTE ---
Current Diagnoses Chronic obstructive pulmonary disease, unspecified (03/08/19) Past Medical History (Last Reviewed 11/14/18 @ 19:33 by Abundio Lieberman DO) Atrial fibrillation (Resolved 04/2014) Back pain (Chronic) Frequent UTI (Chronic) Lung cancer (Resolved 04/2014) Visit Care Team Role Provider Type Awa Deng DO Attending Provider Physician Primary Care Provider Specialty: [facility] Practice Address: [address] [place] [address], [address], [facility] Email: [email or web address] Pulmonary Rehab Re-Evaluation [place] Pulmonary Rehab. Re-Assessment Start: 12/26/18 10:20 Freq: Status: Active Protocol: Document 01/29/19 13:45 ROLAN (Rec: 01/29/19 13:50 [facility] [id number]) [place] Exercise Re-Assessment New Session Number 2-14 Type Treadmill,HALIE METs (resistance level) 2.77TM 2.70REX % Improvement 44%TM 27%HALIE Interval Training No Shortness of Breath with Exercise Yes Desaturation with Exercise No Free Weight Yes: 4# 2S 12R Band Level Yes: #4 NE Education Re-Assessment Topics Normal Anatomy and Physiology, Chronic Lung Disease,Breathing Retraining,Activities of daily living/Leisure Activities Goals Pt will Master PLB and Diaphragmatic Breathing,Pt will Master Energy Conserving Techniques,Pt will learn exercise safety,Pt will continue ED topics until completion NE Psychosocial Re-Assessment Patient in Class Regularly Yes Interventions Pt attending class regularly Goals Pt will continue to attend classes 3x wk,Participate in social and educational discussion,Received emotional support from family/friends Document 03/08/19 15:19 ROLAN (Rec: 03/08/19 15:25 [facility] [id number]) NE Exercise Re-Assessment New Session Number 15-21 Type Treadmill,HALIE METs (resistance level) 2.95TM 3.0REX % Improvement 6%TM 11%HALIE Interval Training No Shortness of Breath with Exercise Yes Desaturation with Exercise No Free Weight Yes: 5# 12R 2S Band Level Yes: #4 BAND NE Education Re-Assessment Tobacco Use Yes Interventions Ask,Advise,Assist,Arrange,Risk ,Rewards,Roadblocks Topics Normal Anatomy and Physiology, Chronic Lung Disease, Description and Interpretation Medical Tests,Breathing Retraining,Bronchial Hygiene, Benefits of Exercise, Activities of daily living/ Leisure Activities,Eating Right Goals Pt will Complete Smoking Sessation,Pt will Master PLB and Diaphragmatic Breating,Pt will Master Energy Conserving Techniques,Pt will learn exercise safety,Pt will continue ED topics until completion NE Psychosocial Re-Assessment Patient in Class Regularly Yes Interventions Pt attending class regularly Referral Needed No Goals Pt will continue to attend classes 3x wk,Participate in social and educational discussion,Received emotional support from family/friends
--- NOTE | 2019-04-04 15:53 | PR.REVALNOTE ---
Current Diagnoses Chronic obstructive pulmonary disease, unspecified (04/02/19) Past Medical History (Last Reviewed 11/14/18 @ 19:33 by Abundio Lieberman DO) Atrial fibrillation (Resolved 04/2014) Back pain (Chronic) Frequent UTI (Chronic) Lung cancer (Resolved 04/2014) Visit Care Team Role Provider Type Awa Deng DO Attending Provider Physician Primary Care Provider Specialty: [facility] Practice Address: [address] [place] [address], [address], [facility] Email: [email or web address] Pulmonary Rehab Re-Evaluation [place] Pulmonary Rehab. Re-Assessment Start: 12/26/18 10:20 Freq: Status: Active Protocol: Document 01/29/19 13:45 ROLAN (Rec: 01/29/19 13:50 [facility] [id number]) [place] Exercise Re-Assessment New Session Number 2-14 Type Treadmill,HALIE METs (resistance level) 2.77TM 2.70REX % Improvement 44%TM 27%HALIE Interval Training No Shortness of Breath with Exercise Yes Desaturation with Exercise No Free Weight Yes: 4# 2S 12R Band Level Yes: #4 IN Education Re-Assessment Topics Normal Anatomy and Physiology, Chronic Lung Disease,Breathing Retraining,Activities of daily living/Leisure Activities Goals Pt will Master PLB and Diaphragmatic Breathing,Pt will Master Energy Conserving Techniques,Pt will learn exercise safety,Pt will continue ED topics until completion IN Psychosocial Re-Assessment Patient in Class Regularly Yes Interventions Pt attending class regularly Goals Pt will continue to attend classes 3x wk,Participate in social and educational discussion,Received emotional support from family/friends Document 03/08/19 15:19 ROLAN (Rec: 03/08/19 15:25 [facility] [id number]) IN Exercise Re-Assessment New Session Number 15-21 Type Treadmill,HALIE METs (resistance level) 2.95TM 3.0REX % Improvement 6%TM 11%HALIE Interval Training No Shortness of Breath with Exercise Yes Desaturation with Exercise No Free Weight Yes: 5# 12R 2S Band Level Yes: #4 BAND IN Education Re-Assessment Tobacco Use Yes Interventions Ask,Advise,Assist,Arrange,Risk ,Rewards,Roadblocks Topics Normal Anatomy and Physiology, Chronic Lung Disease, Description and Interpretation Medical Tests,Breathing Retraining,Bronchial Hygiene, Benefits of Exercise, Activities of daily living/ Leisure Activities,Eating Right Goals Pt will Complete Smoking cessation,Pt will Master PLB and Diaphragmatic Breathing,Pt will Master Energy Conserving Techniques,Pt will learn exercise safety,Pt will continue ED topics until completion IN Psychosocial Re-Assessment Patient in Class Regularly Yes Interventions Pt attending class regularly Referral Needed No Goals Pt will continue to attend classes 3x wk,Participate in social and educational discussion,Received emotional support from family/friends Document 04/04/19 15:45 Felix (Rec: 04/04/19 15:53 [facility] [id number]) IN Exercise Re-Assessment New Session Number 4-16 Type Treadmill,HALIE METs (resistance level) TM3.33 REX3.20 % Improvement TM20% REX18% Interval Training No Shortness of Breath with Exercise Yes Desaturation with Exercise Yes Free Weight Yes Band Level Yes Toward Target Goals Pt continues to progress with improved stamina IN Nutrition Re-Assessment Goals Pt will continue focusing on weight gain,Pt will continue to learn tips IN Education Re-Assessment Topics Normal Anatomy and Physiology, Chronic Lung Disease, Description and Interpretation Medical Tests,Breathing Retraining,Bronchial Hygiene, Medication,Benefits of Exercise,Activities of daily living/Leisure Activities, Eating Right Goals Pt will Master PLB and Diaphragmatic Breathing,Pt will Master Energy Conserving Techniques,Pt will learn exercise safety,Pt will continue ED topics until completion IN Psychosocial Re-Assessment Patient in Class Regularly Yes Interventions Pt attending class regularly Goals Pt will continue to attend classes 3x wk,Participate in social and educational discussion,Received emotional support from family/friends
--- NOTE | 2019-04-11 10:42 | PR.DCNOTE ---
Current Diagnoses Chronic obstructive pulmonary disease, unspecified (04/09/19) Past Medical History (Last Reviewed 11/14/18 @ 19:33 by Abundio Lieberman DO) Atrial fibrillation (Resolved 04/2014) Back pain (Chronic) Frequent UTI (Chronic) Lung cancer (Resolved 04/2014) Visit Care Team Role Provider Type Awa Deng DO Attending Provider Physician Primary Care Provider Specialty: [facility] Practice Address: [address] [place] [address], [address], [facility] Email: [email or web address] Pulmonary Rehab Discharge Evaluation [place] Pulmonary Rehab. DC Assessment Start: 12/26/18 10:20 Freq: Status: Active Protocol: Document 04/11/19 10:27 ROLAN (Rec: 04/11/19 10:42 ROLAN [id number]) [place] Exercise Discharge Assess Session 1 Type Treadmill,HALIE METs (resistance level) TM 3.55 halie 3.4 % Improvement TM 33% HALIE 13% Interval Training No Shortness of Breath with Exercise Yes Desaturation with Exercise No Free Weight Yes: 5# 12r 2s Band Level Yes: #4 Toward Target Goals Overall improvement TM 84% HALIE 30% [place] Nutrition DC Assessment Goals Pt will continue focusing on weight gain,Pt will continue to learn tips Patient Ready Yes Reason Completed Max Sessions [place] Education DC Assessment Post Test Score 79% % Improvement 21% Tobacco Use Yes Smoking Habit Update Smokes less than Initial Undecided if/when to Quit Smoking Yes Education Topics Normal Pulmonary Anatomy and Physiology,Chronic Lung Disease,Description and Interpretation of Medical Tests,Breathing Retraining, Bronchial Hygiene,Medications, Benefits of Exercise, Activities of Daily Living/ Leisure Activities,Eating Right,Irritant Avoidance/ Prevention of Respiratory Infection,Coping with Chronic Lung Disease,Metabolic Syndrome,Asthma Education Target Goals Pt was educated on home exercise prescription,Pt educated on home resistance training,Pt educated on oxygen therapy for home,PT educated on medication's taken at home, Pt educated on PBL and relaxation techniques [place] Psychosocial DC Assessment HADS Depression Score 3 HADS Anxiety Score 3 Phase III Yes Referral Needed No [place] Six Minute Walk Test Oxygen Delivery Method Room Air Respiratory Rate (breaths/min) 14 Pulse Rate (beats/min) 82 O2 Saturation by Pulse Oximetry (%) 94 Pulse Rate (beats/min) 80 Ambulation Distance (feet) 250 O2 Saturation by Pulse Oximetry (%) 90 Pulse Rate (beats/min) 86 Ambulation Distance (feet) 250 O2 Saturation by Pulse Oximetry (%) 89 Pulse Rate (beats/min) 86 Ambulatory Distance (feet) 250 O2 Saturation by Pulse Oximetry (%) 89 Pulse Rate (beats/min) 86 Ambulation Distance (feet) 250 O2 Saturation by Pulse Oximetry (%) 88 Pulse Rate (beats/min) 88 Ambulation Distance (feet) 250 O2 Saturation by Pulse Oximetry (%) 89 PUlse Rate (beats/min) 92 Ambulation Distance (feet) 275 O2 Saturation by Pulse Oximetry (%) 89 Respiratory Rate (breaths/min) 14 Pulse Rate (beats/min) 86 O2 Saturation by Pulse Oximetry (%) 91 Activity Tolerance Good Adverse Reactions Increased Shortness of Breath Distance 1525 Wai RPE Scale 11 Oriented to RPE Scale Yes Dyspnea 3 Oriented to Dyspnea Scale Yes
== END 2019-04-18 15:08 ==
LOC: PUL 14:00
PROVIDERS: PCP Family Medicine; Visit Provider Family Medicine
DX: J44.9 Chronic obstructive pulmonary disease, unspecified (principal)
CPT/HCPCS: G0424

== ENCOUNTER → 2019-10-18 11:17 | Outpatient (CLI) | payer OTHER, SELFPAY ==
[2018-12-27 11:15] VITALS: BMI 22.9
--- NOTE | 2019-10-18 11:18 | DI.CT.S_ITS ---
PROCEDURE: CT CHEST ABD PEL W CON INDICATIONS: Restaging lung cancer, colon cancer TECHNIQUE: After the administration of oral and intravenous contrast, 5 mm thick sections acquired from the lung apices to the symphysis. 5 mm coronal and sagittal reformats were performed, with additional 7 mm coronal MIP reformats through the lungs. For radiation dose reduction, the following was used: automated exposure control, adjustment of mA and/or kV according to patient size. COMPARISON: [facility], CT, CT CHEST ABD PEL W CON, 02/19/2019, 14:31. FINDINGS: Image quality: Excellent. CHEST: Lungs and pleura: Advanced centrilobular emphysema is again seen. Previously described focal soft tissue prominence involving inferior aspect of medial left lung base is again seen and is grossly unchanged in size and appearance consistent with parenchymal scarring. No new pulmonary nodule or mass is identified No pleural effusions or pneumothorax. Central and peripheral airways appear patent and normal in caliber. Mediastinum: Heart size is normal. No pericardial effusion. Enlarged mediastinal lymph nodes are seen, measures up to 1.6 cm in short axis diameter in precarinal space and subcarinal space. Thoracic aorta and central pulmonary arteries are normal in size. Short segment of high-grade stenosis involving proximal left subclavian artery just beyond its origin from aortic arch is again seen and unchanged from prior studies. Esophagus is normal in caliber. No hiatal hernia. Chest wall: No axillary or supraclavicular adenopathy by size criteria. Thyroid gland is within normal limits. ABDOMEN: Solid organs: Liver is normal in size and enhancement. Gallbladder is unremarkable.. Biliary system is non dilated. Pancreas enhances normally. Spleen is normal in size and enhancement. No adrenal nodules. Kidneys demonstrate normal size and enhancement, without hydronephrosis. Peritoneum and bowel: Bowel loops demonstrate normal wall thickness and caliber. No free fluid or air. Nodes and vessels: No retroperitoneal or mesenteric adenopathy by size criteria. Aorta and inferior vena cava are normal in size. Moderate amount of atherosclerotic calcifications are seen. Miscellaneous: No ventral hernias. PELVIS: Genitourinary: Bladder wall thickness is normal. Miscellaneous: No inguinal hernias or adenopathy. Bones: No suspicious bony lesions. No vertebral body compression fractures. IMPRESSION: 1. Stable appearing likely fibrotic scarring and medial aspect of left lower lung field unchanged from prior study. Severe centrilobular emphysema. No pleural effusion or pneumothorax. Airway is patent. 2. Prominent mediastinal lymph nodes as above. These nodes are slightly increased in size compared to previous studies. Largest node measures 1.6 cm in short axis diameter. No abdominal or pelvic lymphadenopathy. 3. 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 Dictated by: Robbie Mosquera M.D. on 10/18/2019 at 13:24 Approved by: Robbie Mosquera M.D. on 10/18/2019 at 13:33
== END ==
PROVIDERS: Family Provider Family Medicine; PCP Family Medicine; Referring Provider Family Medicine; Visit Provider Internal Medicine Hematology & Oncology
DX: C34.00 Malignant neoplasm of unspecified main bronchus (principal); C18.9 Malignant neoplasm of colon, unspecified; J43.2 Centrilobular emphysema; R59.0 Localized enlarged lymph nodes; I70.208 Unspecified atherosclerosis of native arteries of extremities, other extremity
CPT/HCPCS: 71260; 74177; Q9967

== ENCOUNTER → 2020-04-29 13:30 | Outpatient (CLI) | payer OTHER, SELFPAY ==
[2018-12-27 11:15] VITALS: BMI 22.9
--- NOTE | 2020-04-29 13:31 | DI.CT.S_ITS ---
PROCEDURE: CT CHEST ABD PEL W CON INDICATIONS: lung cancer, colon cancer TECHNIQUE: After the administration of oral and intravenous contrast, 5 mm thick sections acquired from the lung apices to the symphysis. 5 mm coronal and sagittal reformats were performed, with additional 7 mm coronal MIP reformats through the lungs. For radiation dose reduction, the following was used: automated exposure control, adjustment of mA and/or kV according to patient size. COMPARISON: [facility], CT, CT CHEST ABD PEL W CON, 02/19/2019, 14:31. [facility], CT, CT CHEST ABD PEL W CON, 08/14/2018, 15:51. [facility], CT, CT CHEST ABD PEL W CON, 03/09/2018, 14:49. [facility], CT, CT CHEST ABD PEL W CON, 09/29/2017, 15:19. [facility], CT, CT CHEST ABD PEL W CON, 10/18/2019, 11:53. FINDINGS: Image quality: Excellent. CHEST: Lungs and pleura: No pleural effusion or pneumothorax. No definite acute consolidation. Redemonstrated medial left basilar pulmonary nodule measuring 1.8 x 1.4 cm, previously 2.1 x 1.9 cm. Image 303/3. Extensive bilateral upper and lower lobe emphysema, with numerous pleural blebs. Mediastinum: Heart size is normal. No pericardial effusion. Enlarged precarinal lymph node measuring 1.5 x 1.3 cm on image 37 appears grossly unchanged. Thoracic aorta unremarkable. There is redemonstrated high-grade stenosis of the left subclavian artery. Esophagus is normal in caliber. No hiatal hernia. Chest wall: No axillary or supraclavicular adenopathy by size criteria. Thyroid is grossly unremarkable ABDOMEN: Solid organs: Liver is normal in size and enhancement. The gallbladder is grossly unremarkable. Biliary system is non dilated. Pancreas enhances normally. Spleen is normal in size and enhancement. No adrenal nodules. No hydronephrosis. Subcentimeter renal foci, statistically cysts, although technically too small to characterize accurately and therefore nonspecific. Peritoneum and bowel: Bowel loops demonstrate normal wall thickness and caliber. No free fluid or air. Normal appendix. Nodes and vessels: No retroperitoneal or mesenteric adenopathy by size criteria. Aorta and inferior vena cava are normal in size. Scattered vascular calcifications incidentally noted in the aorta. Miscellaneous: No ventral hernias. PELVIS: Minimal circumferential bladder wall thickening, which appears unchanged. Miscellaneous: No inguinal hernias or adenopathy. Bones: No suspicious bony lesions. No vertebral body compression fractures. IMPRESSION: Overall, grossly stable examination re demonstrating medial left basilar pulmonary nodule probably treated disease given grossly unchanged to minimally decreased size. Elsewhere, no evidence of active or progressive metastatic disease. Additional chronic and incidental findings as above. Dictated by: Dandre Yañez M.D. on 04/29/2020 at 15:42 Approved by: Dandre Yañez M.D. on 04/29/2020 at 15:59
== END ==
PROVIDERS: Family Provider Family Medicine; PCP Family Medicine; Referring Provider Internal Medicine Hematology & Oncology; Visit Provider Internal Medicine Hematology & Oncology
DX: C18.9 Malignant neoplasm of colon, unspecified (principal); C34.00 Malignant neoplasm of unspecified main bronchus
CPT/HCPCS: 71260; 74177

== ENCOUNTER → 2020-11-10 14:20 | Outpatient (CLI) | payer OTHER, SELFPAY ==
[2020-08-20 16:29] VITALS: BMI 22.9
--- NOTE | 2020-11-10 14:22 | DI.CT.S_ITS ---
PROCEDURE: CT CHEST ABD PEL W CON INDICATIONS: metastatic lung cancer TECHNIQUE: After the administration of oral and intravenous contrast, axial sections acquired from the supraclavicular neck to the pubic symphysis. Coronal and sagittal reformats were performed. For radiation dose reduction, the following was used: automated exposure control, adjustment of mA and/or kV according to patient size. COMPARISON: [facility], CT, CT CHEST ABD PEL W CON, 10/18/2019, 11:53. [facility], CT, CT CHEST ABD PEL W CON, 02/19/2019, 14:31. [facility], CT, CT CHEST ABD PEL W CON, 04/29/2020, 14:19. FINDINGS: CHEST: Lungs: Widespread emphysema, and numerous pleural blebs. Scattered subsegmental atelectasis and/or scarring. No focal consolidation. Redemonstrated medial left basilar pulmonary nodule measuring 1.8 x 1.3 cm, grossly unchanged. Airway thickening in keeping with nonspecific bronchitis and/or reactive airways disease. Pleura: No pleural effusions or pneumothorax. Heart: Heart size is normal. No pericardial effusion. Chest nodes: Unchanged precarinal lymph node image 34/2 measuring 1.4 cm. No interval change. Thyroid gland: Negative Aorta: Normal in size. Scattered atheromatous calcifications in the aorta. Pulmonary arteries: Enlarged raising possibility of pulmonary arterial hypertension. Esophagus: Normal. ABDOMEN: Liver: Normal. Gallbladder: Decompressed otherwise unremarkable. Bile ducts: Normal. Pancreas: Normal. Spleen: Normal. Adrenals: Normal. Kidneys and ureters: Normal. Stomach and duodenum: Normal. Bowel: Normal. Normal appendix Other: No free fluid or air. Abdominal nodes: Normal. Aorta and IVC: Normal in size. Ventral wall: Normal. PELVIS: Bladder: Normal. Inguinal region: No hernia. Pelvic nodes: Normal. Bones: No suspicious bony lesions. No vertebral body compression fractures. IMPRESSION: Stable examination as detailed above. No specific CT evidence for active/progressive metastatic disease. Additional chronic and incidental findings as above. Dictated by: Dandre Yañez M.D. on 11/10/2020 at 15:52 Approved by: Dandre Yañez M.D. on 11/10/2020 at 16:01
== END ==
PROVIDERS: Family Provider Family Medicine; PCP Family Medicine; Referring Provider Internal Medicine Hematology & Oncology; Visit Provider Internal Medicine Hematology & Oncology
DX: C34.32 Malignant neoplasm of lower lobe, left bronchus or lung; C79.72 Secondary malignant neoplasm of left adrenal gland; J43.9 Emphysema, unspecified
CPT/HCPCS: 71260; 74177; Q9967

== ENCOUNTER → 2021-09-10 10:58 | Outpatient (CLI) | payer OTHER, SELFPAY ==
[2020-08-20 16:29] VITALS: BMI 22.9
--- NOTE | 2021-09-10 10:59 | DI.CT.S_ITS ---
PROCEDURE: CT CHEST ABD PEL W CON INDICATIONS: metastatic lung cancer TECHNIQUE: After the administration of oral and intravenous contrast, axial sections acquired from the supraclavicular neck to the pubic symphysis. Coronal and sagittal reformats were performed. For radiation dose reduction, the following was used: automated exposure control, adjustment of mA and/or kV according to patient size. COMPARISON: [facility], CT, CT CHEST ABD PEL W CON, 11/10/2020, 15:15. FINDINGS: Image quality: Excellent. CHEST: Lower Neck: No enlarged lymph nodes. Thyroid: Unremarkable CT appearance. Axillae: No enlarged lymph nodes. Chest Wall: Right chest port present, catheter tip terminates near the lower SVC. Lungs and Airways: Severe emphysema as before. Redemonstrated irregular nodule at the anterior aspect of the left lower lobe measuring 2.0 x 2.0 cm (3/255) previously 2.3 x 2.1 cm when remeasured. Increased size of a nodule in the lingula now measuring 10 mm (3/237) previously 7 mm. Possible new anterior right lower lobe nodule measuring 11 mm (3/276) versus prominent region of atelectasis or scarring. Airway secretions present in both mainstem bronchi. Proximal left upper lobe airways are opacified as before. Pleura: No pneumothorax or pleural effusions. Heart: No pericardial effusion. Thoracic Vessels: The main pulmonary artery is enlarged measuring 3.5 cm. Mediastinum and Telma: Mediastinal adenopathy is present as before. Previously indexed lower paratracheal lymph node measures 1.2 cm (2/31) previously 1.3 cm when remeasured, no significant change. Right hilar adenopathy is also similar to before. Esophagus: No wall thickening. ABDOMEN: Liver: Unremarkable. Gallbladder: No radiopaque gallstones. Biliary ducts: Unremarkable. Pancreas: Unremarkable. Spleen: Unremarkable. Adrenal Glands: Unremarkable. Kidneys and Ureters: Unremarkable. Scattered subcentimeter hypodensities are present which are too small to characterize but are statistically likely to represent benign cysts. Stomach and Bowel: No evidence of mechanical small bowel obstruction. A colorectal anastomosis is present. Peritoneum: No abnormal intraperitoneal fluid. No free air. Ventral Wall: No hernia. Abdominal Nodes: No retroperitoneal or mesenteric adenopathy by size criteria. Vessels: Aorta and inferior vena cava are normal in size. PELVIS: Pelvic Organs: Unremarkable. Bladder: Unremarkable. Pelvic Nodes: No enlarged lymph nodes. Miscellaneous: No inguinal hernias are seen. Bones: Multilevel degenerative change of the visualized spine. IMPRESSION: 1. Dominant irregular nodule at the medial aspect of the left lower lobe is similar to slightly decreased in size. 2. Interval increase in size of a now 1.0 cm lingular pulmonary nodule which could represent metastatic disease. Attention on follow-up is recommended. 3. Possible new right lower lobe nodule versus prominent region of atelectasis or scarring. Attention on follow-up is recommended. 4. Similar thoracic adenopathy. 5. No definite evidence of metastatic disease in the abdomen or pelvis. Dictated by: Ruddy Smith M.D. on 09/10/2021 at 16:08 Approved by: Ruddy Smith M.D. on 09/10/2021 at 16:52
== END ==
PROVIDERS: Family Provider Family Medicine; PCP Pediatrics; Referring Provider Internal Medicine Hematology & Oncology; Visit Provider Internal Medicine Hematology & Oncology
DX: R91.8 Other nonspecific abnormal finding of lung field; R59.0 Localized enlarged lymph nodes; C34.32 Malignant neoplasm of lower lobe, left bronchus or lung; C79.72 Secondary malignant neoplasm of left adrenal gland; E27.3 Drug-induced adrenocortical insufficiency; J44.9 Chronic obstructive pulmonary disease, unspecified
CPT/HCPCS: 71260; 74177; Q9967

== ENCOUNTER → 2022-03-03 14:05 | Outpatient (CLI) | payer OTHER, SELFPAY ==
[2020-08-20 16:29] VITALS: BMI 22.9
--- NOTE | 2022-03-03 14:06 | DI.CT.S_ITS ---
PROCEDURE: CT CHEST WO CON INDICATIONS: lung cancer TECHNIQUE: Noncontrast 5 mm thick sections acquired from the pulmonary apices to the posterior costophrenic angles. 1 mm lung window, 5 mm thick coronal and sagittal and 7 mm axial MIP reformats were then acquired. For radiation dose reduction, the following was used: automated exposure control, adjustment of mA and/or kV according to patient size. COMPARISON: [facility], CT, CT CHEST ABD PEL W CON, 04/29/2020, 14:19. [facility], CT, CT CHEST ABD PEL W CON, 10/18/2019, 11:53. FINDINGS: Image quality: Good. Lungs and pleura: Severe emphysematous change. A few pulmonary nodules. -Lingula 1.1 cm, (3/267), previously 1 cm, and more remotely 0.4 cm on 10/18/2019. Suspicious. -Left lower lobe 1.4 cm, (3/284), previously 1.5 cm, and more remotely 1.7 cm in 2019. Calcified treated lesion. Remotely FDG avid in 2015. -Right lower lobe nodular opacity 0.3 cm, (3/278), previously 0.8 cm. No acute airspace opacity. A few areas of distal mucus airway plugging. No pleural effusion. No pneumothorax. Mediastinum: Right-sided port with the catheter tip at the lower 3rd of the SVC. Heart size is normal. No pericardial effusion. Precarinal node measuring 1.1 cm, (2/34), previously 1 cm, and more remotely 1.1 cm in 2020. Calcified subcarinal and left infra hilar node or pulmonary nodule. Thoracic aorta and central pulmonary arteries are normal in size. Esophagus is normal in caliber. No hiatal hernia. Bones and chest wall: Tiny sclerotic focus at the T1 spinous process, unchanged. No vertebral body compression fractures. No axillary or supraclavicular adenopathy by size criteria. Thyroid gland is unremarkable. Abdomen: Visualized upper abdominal solid organs and bowel loops appear normal in the absence of contrast. IMPRESSION: 1. Lingular pulmonary nodule measuring 1.1 cm is not significantly changed compared to September 2021. However, this is increased compared to 2020 and is suspicious for malignancy. Consider PET/CT for further evaluation. 2. Enlarged precarinal lymph node measuring 1.1 cm is not significantly changed. 3. Left infrahilar treated lesion and calcified treated mediastinal lymph nodes are unchanged. 4. Severe emphysematous change. Dictated by: James Rose M.D. on 03/03/2022 at 16:31 Approved by: James Rose M.D. on 03/03/2022 at 17:06
== END ==
PROVIDERS: Family Provider Family Medicine; PCP Family Medicine; Referring Provider Internal Medicine Hematology & Oncology; Visit Provider Internal Medicine Hematology & Oncology
DX: J44.9 Chronic obstructive pulmonary disease, unspecified; C34.32 Malignant neoplasm of lower lobe, left bronchus or lung; R59.0 Localized enlarged lymph nodes; R91.8 Other nonspecific abnormal finding of lung field; Z95.828 Presence of other vascular implants and grafts
CPT/HCPCS: 71250

== ENCOUNTER → 2022-06-23 07:49 | Outpatient (CLI) | payer SELFPAY ==
[2020-08-20 16:29] VITALS: BMI 22.9
--- NOTE | 2022-06-23 07:52 | DI.NM.S_ITS ---
PROCEDURE: NM PET CT FUSION SKULL 2 THIGH RADIOPHARMACEUTICAL: 11.6 mCi F-18 fluorodeoxyglucose IV. INDICATIONS: metastatic lung cancer TECHNIQUE: After intravenous administration of F-18 fluoro-deoxyglucose (FDG), noncontrast CT images were obtained for attenuation correction and anatomic localization. A series of overlapping emission PET images was then obtained. The patient's pretest fasting blood glucose level as measured by glucometer was 93 mg/dl. The area imaged spanned from the skull to the upper thighs. COMPARISON: NM, PET/CT SKULL BASE TO MID THIGH, 11/22/2014, 10:31. NM, PET/CT SKULL BASE TO MID THIGH, 05/03/2014, 8:58. NM, PET NECK TO MID THIGH STD, 08/15/2015, 13:59. [facility], CT, CT CHEST WO CON, 03/03/2022, 14:10. [facility], CT, CT CHEST ABD PEL W CON, 09/10/2021, 12:20. [facility], CT, CT CHEST ABD PEL W CON, 11/10/2020, 15:15. [facility], CT, CT CHEST ABD PEL W CON, 04/29/2020, 14:19. CT, CT CHEST ABD PEL W CON, 10/18/2019, 11:53. CT, CT CHEST ABD PEL W CON, 02/19/2019, 14:31. FINDINGS: Mediastinal background uptake: maximum SUV 3.0. Liver background uptake: maximum SUV 3.3. Head and neck: Lymph nodes: No enlarged lymph nodes; no abnormal lebron uptake. Neck spaces: Unremarkable. Intense vocal cord uptake is nonspecific. Vasculature: Unremarkable. Salivary and thyroid glands: Unremarkable. Sinuses and mastoids: Unremarkable. Thorax: Lymph nodes: There is a 1.6 cm precarinal lymph node demonstrating maximum SUV 3.2. Lungs and pleura: There is a 1.1 cm nodule in lingula, demonstrating mildly increased FDG activity (maximum SUV 3.0), suspicious for lung cancer. There is a 1.6 cm mass or masslike density in the left lower lobe, demonstrating low level FDG uptake with maximum SUV 2.0. Mildly increased FDG uptake is seen in josr bilaterally (maximum SUV 3.8 on the right and 3.2 on the left), indeterminate. There is moderate emphysema. Heart and vessels: Unremarkable. Esophagus: Unremarkable. Abdomen and pelvis: Lymph nodes: No enlarged lymph nodes; no abnormal lebron tracer uptake. Liver: Unremarkable. Gallbladder: Unremarkable. Spleen: Unremarkable. Pancreas: Unremarkable. Adrenals: Unremarkable. Kidneys: Unremarkable. Bowel: Unremarkable. Peritoneum: Unremarkable. Liver: unremarkable. Aorta and vessels: Severe atherosclerosis. Pelvic organs: Unremarkable. Bones and extremities: Mildly increased uptake in the left neck projecting to the facet joint, likely secondary to facet joint arthritis. No lytic or blastic bony lesions. Diffuse increased marrow uptake is nonspecific. Skin and body wall: unremarkable. There is a Port-A-Cath in the right anterior chest. IMPRESSION: 1. The 1.1 cm nodule in lingula demonstrates mildly increased FDG activity suspicious for primary lung cancer. 2. A 1.6 cm mass or masslike density in the left lower lobe demonstrates low level FDG uptake. This is in the area of previously treated lung cancer. 3. Mildly enlarged precarinal lymph node demonstrates low level increased FDG uptake, indeterminate. Low-level increased hilar FDG uptake is also indeterminate. 4. No findings to suggest distant metastasis. Dictated by: Ciara Gonsales M.D. on 06/24/2022 at 10:36 Approved by: Ciara Gonsales M.D. on 06/24/2022 at 11:23
== END ==
PROVIDERS: Family Provider Family Medicine; PCP Family Medicine; Referring Provider Internal Medicine Hematology & Oncology; Visit Provider Internal Medicine Hematology & Oncology
DX: C34.00 Malignant neoplasm of unspecified main bronchus (principal); R59.0 Localized enlarged lymph nodes; R91.8 Other nonspecific abnormal finding of lung field

== ENCOUNTER → 2022-11-02 09:19 | Outpatient (CLI) | payer OTHER, SELFPAY ==
[2022-11-01 15:34] VITALS: BMI 22.9
--- NOTE | 2022-11-02 09:20 | DI.RAD.S_ITS ---
PROCEDURE: XR HIP W PEL IF DONE RT 2V INDICATIONS: right hip pain TECHNIQUE: AP pelvis with lateral view(s) of the right hip(s). COMPARISON: None. FINDINGS: Bones: No fractures or dislocations. Symmetric appearing [id number] bilateral hip joint osteoarthritic changes are seen. No evidence of avascular necrosis of femoral head. Pelvic ring appears intact. No suspicious bony lesions. Soft tissues: The visualized bowel gas pattern is normal. No suspicious soft tissue calcifications. IMPRESSION: [id number] right hip joint osteoarthritis. No hip fracture or dislocation. No evidence of avascular necrosis. Dictated by: Robbie Mosquera M.D. on 11/02/2022 at 16:09 Approved by: Robbie Mosquera M.D. on 11/02/2022 at 16:10
--- NOTE | 2022-11-02 09:20 | DI.RAD.S_ITS ---
PROCEDURE: XR ANKLE RT MIN 3V INDICATIONS: right ankle pain TECHNIQUE: 3 views of the ankle were acquired. COMPARISON: None. FINDINGS: Bones: No fractures or dislocations. Ankle mortise is normally aligned. No suspicious bony lesions. Soft tissues: No tibiotalar joint effusion. Achilles tendon appears normal. IMPRESSION: No acute ankle fracture or dislocation. No gross soft tissue abnormalities. Ankle mortise is congruent. Dictated by: Robbie Mosquera M.D. on 11/02/2022 at 16:09 Approved by: Robbie Mosquera M.D. on 11/02/2022 at 16:09
== END ==
PROVIDERS: Family Provider Family Medicine; PCP Family Medicine; Referring Provider Physician Assistant; Visit Provider Physician Assistant
DX: M79.604 Pain in right leg (principal); M25.571 Pain in right ankle and joints of right foot
CPT/HCPCS: 73502; 73610

== ENCOUNTER → 2022-11-03 16:28 | Outpatient (CLI) | payer OTHER, SELFPAY ==
[2022-11-01 15:34] VITALS: BMI 22.9
[2022-11-03 16:54] LABS: Add Manual Diff / Slide Review NO; Basophils Absolute Auto 100 /uL (0-100); Basophils Percent Auto 0.6 % (0-2); Eosinophils Absolute Auto 100 /uL (0-450); Eosinophils Percent Auto 0.7 % (2-4); Hematocrit 48.2 % (41-53); Hemoglobin 16.4 g/dL (13.5-17.5); Lymphocytes Absolute Auto 1100 /uL (1100-4500); Lymphocytes Percent Auto 9.4 % (25-40); Mean Corpuscular Hemoglobin 32.2 PG (26-34); Mean Corpuscular Volume 94.9 fL (80-100); Monocytes Absolute Auto 700 /uL (0-900); Neutrophils Absolute Auto 9600 /uL (1500-7000); Neutrophils Percent Auto 83.3 % (50-75); Platelet Count 340 X10^3/uL (150-400); Red Blood Cell Count 5.08 X10^6/uL (4.5-5.9); White Blood Cell Count 11.5 X10^3/uL (4.5-11.0)
[2022-11-03 17:09] LABS: Erythrocyte Sedimentation Rate 1 MM/HR (0-15)
[2022-11-03 17:24] LABS: C-Reactive Protein Quant < 0.5 mg/dL (<1.0); Uric Acid 4.2 mg/dL (3.5-8.5)
== END ==
PROVIDERS: Family Provider Family Medicine; PCP Family Medicine; Referring Provider Family Medicine; Visit Provider Family Medicine
DX: M25.571 Pain in right ankle and joints of right foot (principal)
CPT/HCPCS: 36415; 84550; 85025; 85651; 86140

== ENCOUNTER → 2022-12-09 14:51 | Outpatient (CLI) | payer OTHER, SELFPAY ==
[2022-11-01 15:34] VITALS: BMI 22.9
--- NOTE | 2022-12-09 | DI.CT.S_ITS ---
PROCEDURE: CT CHEST WO CON INDICATIONS: metastatic lung cancer TECHNIQUE: Noncontrast 5 mm thick sections acquired from the pulmonary apices to the posterior costophrenic angles. 1 mm lung window, 5 mm thick coronal and sagittal and 7 mm axial MIP reformats were then acquired. For radiation dose reduction, the following was used: automated exposure control, adjustment of mA and/or kV according to patient size. COMPARISON: [facility], CT, CT CHEST WO CON, 03/03/2022, 14:10. FINDINGS: Image quality: Excellent. Lungs and pleura: Severe emphysematous change. Pulmonary nodules are as follows (all described on series 3): 1. Lingula, slightly decreased in size. Previously measured 1.2 cm on previous image 266/3. Currently 1.0 cm on image 259. 2. Calcified treated lesion adjacent to left heart border, previous image 283 and current image 284, stable. It measured 1.8 cm on the previous study and measures 1.9 cm on the current study. 3. A previous 3 mm nodule in the right lung base on prior image 277 is no longer present. No new or increasing lesions. Mediastinum: Heart size is normal. No pericardial effusion. No mediastinal adenopathy by size criteria. Calcified subcarinal lymph node. Thoracic aorta and central pulmonary arteries are normal in size. Esophagus is normal in caliber. No hiatal hernia. Bones and chest wall: No suspicious bony lesions. No vertebral body compression fractures. No axillary or supraclavicular adenopathy by size criteria. Thyroid gland is unremarkable. Right chest Port-A-Cath . Abdomen: Visualized upper abdominal solid organs and bowel loops appear normal in the absence of contrast. IMPRESSION: 1. Interval response to therapy. 1 pulmonary lesion is no longer present. Another has decreased in size. A calcified treated lesion is stable. 2. Severe emphysema. Dictated by: Adin Pacheco M.D. on 12/10/2022 at 9:29 Approved by: Adin Pacheco M.D. on 12/10/2022 at 9:49
== END ==
PROVIDERS: PCP Family Medicine; Referring Provider Internal Medicine Hematology & Oncology; Visit Provider Internal Medicine Hematology & Oncology
DX: C34.92 Malignant neoplasm of unspecified part of left bronchus or lung (principal); J43.9 Emphysema, unspecified
CPT/HCPCS: 71250

== ENCOUNTER 2023-09-14 10:25 | Emergency (ER) | payer OTHER, SELFPAY ==
[2022-11-01 15:34] VITALS: BMI 22.9
[2023-09-14] VITALS (41 sets, daily range): BP systolic 94–143; BP diastolic 52–74; PULSE 62–89; RESP 21–43; TEMP 36.6; O2SAT 50–99; BMI 18.8
--- NOTE | 2023-09-14 10:45 | ED_ITS ---
HPI - General Adult General Chief complaint: Shortness of Breath/Dyspnea Stated complaint: lung cancer pt/ diff breathing Time Seen by Provider: 09/14/23 10:40 Source: patient, RN notes reviewed and old records reviewed Mode of arrival: Ambulatory Limitations: no limitations History of Present Illness HPI narrative: 68-year-old male known history of COPD, active lung cancer on chemotherapy, has home O2 but noncompliant who presents with increasing shortness of breath. Patient states has had several episodes where he feels very tight and wheezy and quite short of breath. He has not been using his home O2 would not use it on the drive here with his . They at home pulse oximetry of 66%. Patient denies fevers, denies any chest pain, states his breathing is a little bit better today than it was last night. Denies any syncope. Patient has had nausea but no vomiting. No abdominal back or flank pain. Normal bowel movements, no issues with urination. No new numbness tingling or weakness. Has some chronic swelling in his ankles not any worsened. Patient has used his home albuterol it is helpful for a brief period of time but then worsened again. No fevers recently patient's has had a recent URI she did test for COVID which was negative at home. Patient is unsure of his home medications. Patient has reported allergic to ciprofloxacin. Patient follows with Dr. Koenig for Oncology through [facility]. Primary care is Dr. Mccartney. Related Data Home Medications Medication Instructions Recorded Confirmed aspirin 81 mg tablet,delayed 81 mg PO DAILY 12/02/17 09/14/23 release folic acid 1 mg tablet 2 mg PO DAILY 04/27/18 09/14/23 pembrolizumab 25 mg/mL intravenous 175 mg IV Q3W 07/30/20 05/17/23 solution (Keytruda) oxycodone 10 mg tablet 10 mg PO Q6H PRN Pain, Moderate 05/06/23 09/14/23 dexamethasone 4 mg tablet 8 mg PO DAILY 09/14/23 09/14/23 lorazepam 0.5 mg tablet 0.5 mg PO TID 09/14/23 09/14/23 olanzapine 5 mg tablet 5 mg PO ONCE PM 09/14/23 09/14/23 ondansetron 8 mg disintegrating 8 mg PO 3XD 09/14/23 09/14/23 tablet prochlorperazine maleate 10 mg 10 mg PO PRN PRN Nausea 09/14/23 09/14/23 tablet Previous Rx's Medication Instructions Recorded famotidine 20 mg tablet 20 mg PO BEDTIME GI prophalyxis 06/01/22 #90 tabs prednisone 5 mg tablet See Rx Instructions .Route 08/04/22 .COMPLEX adrenal insufficiency #100 tabs amlodipine 5 mg tablet 5 mg PO DAILY #90 tabs 02/24/23 lisinopril 20 mg tablet 20 mg PO DAILY #90 tabs 02/24/23 albuterol sulfate 90 mcg/actuation 2 puff inhalation Q4-6H PRN 07/21/23 aerosol inhaler shortness of breath or wheezing #8 grams albuterol sulfate 2.5 mg/3 mL 2.5 mg (3 mL) inhalation Q4-6H PRN 09/14/23 (0.083 %) solution for nebulization shortness of breath or wheezing #90 mL azithromycin 250 mg tablet See Rx Instructions PO .COMPLEX #6 09/14/23 tabs ipratropium bromide 0.02 % 2.5 ml inhalation Q6H PRN 09/14/23 solution for inhalation shortness of breath or wheezing #75 mL prednisone 10 mg tablets in a dose See Rx Instructions PO .COMPLEX 09/14/23 pack #21 ea Allergies Allergy/AdvReac Type Severity Reaction Status Date / Time ciprofloxacin AdvReac Intermediate SEVERE Verified 05/17/23 10:58 NAUSEA zolpidem [From Ambien] AdvReac Intermediate Nausea Verified 05/17/23 10:58 Review of Systems Review of Systems ROS Unobtainable: All systems reviewed & are unremarkable except as noted in HPI and below Patient History Medical History (Updated 09/14/23 @ 12:46 by Tootie Wood DO) Atrial fibrillation (04/2014) Lung cancer (04/2014) Back pain Frequent UTI Surgical History History of esophagogastroduodenoscopy (EGD) (10/20/16) Status post colonoscopy (10/20/16) Status post hemorrhoidectomy (07/02/08) Status post biopsy (04/2014) Social History Smoking Status: Former smoker Tobacco: How many years used: 50 alcohol intake: former substance use type: does not use Smoking Status: Former smoker Substance Use Type: does not use Exam Narrative Exam Narrative: GEN: Thin cachectic appearing male, alert and oriented x 3, patient appears to be in moderate to severe distress. HEENT: Atraumatic, pupils are equal round reactive to light, extraocular movements are intact, nares are clear, there is no conjunctival pallor. Throat is clear without any exudates, erythema, tonsillar enlargement or uvular deviation HEART: Regular rate and rhythm without murmur, clicks, rubs. Pulses are equal in upper and lower extremities no edema bilateral upper or lower extremities. LUNGS:Lungs patient has a wheeze particularly on the right side but bilaterally, positive for tachypnea, does have some accessory muscle use, no rales, crackles, chest moves symmetrically, patient is able to speak in 3-4 word sentences. ABD:bowel sounds normal, soft, non-tender, no guarding, rebound, rigidity, no masses noted, no hepatosplenomegaly :No CVA tenderness MSCL: Non-tender, no muscle atrophy, muscles strength 5/5 upper and lower extremities, full range of motion, normal gait NEURO:CN 2-12 intact SKIN: No rash, erythema or other skin changes noted Initial Vital Signs Initial Vital Signs: Vital Signs Temperature 97.9 F 09/14/23 10:30 Pulse Rate 89 09/14/23 10:30 Respiratory Rate 30 H 09/14/23 10:30 Blood Pressure 94/52 L 09/14/23 10:30 Pulse Oximetry 77 L 09/14/23 10:30 Oxygen Delivery Method Room Air 09/14/23 10:30 Course Orders Ordered: ED Orders 09/14/23 10:40 Complete Blood Count AUTO DIFF Stat Comprehensive Metabolic Panel Stat Lactate (Lactic Acid) Stat NT-proBNP (BNP-Adult 18+) Stat Prothrombin Time INR Stat Troponin & CK Cardiac Panel Stat 09/14/23 10:46 XR chest 1V Stat EKG-12 Lead Stat Measure peak expiratory flow ONCE RT Consult Eval and Treat NOW 09/14/23 11:16 Blood Culture Stat 09/14/23 11:30 Respiratory Panel (Film Array) Stat 09/14/23 12:05 CT angio chest PE protocol Stat 09/14/23 15:47 ABG [Arterial Blood Gas] STAT 09/14/23 16:15 Arterial Blood Gas Routine Discontinued Medications Albuterol (Albuterol 2.5 Mg/3 Ml Neb (Adult)) 2.5 mg INH [id number] PRN PRN Reason: Shortness Of Breath Albuterol/Ipratropium (Albuterol/Ipratropium 3 Ml Ampul) 3 ml INH [id number] PRN PRN Reason: Shortness Of Breath Last Admin: 09/14/23 10:58 Dose: 3 ml Documented By: SAT Azithromycin (Azithromycin 250 Mg Tablet) 500 mg PO NOW ONE Stop: 09/14/23 15:03 Last Admin: 09/14/23 15:19 Dose: 500 mg Documented By: SPF Sodium Chloride (Normal Saline 0.9%) 1,000 mls @ 1,000 mls/hr IV BOLUS ONE Stop: 09/14/23 11:47 Last Infusion: 09/14/23 12:00 Dose: Infused Documented By: Admin: 09/14/23 11:03 Dose: 1,000 mls/hr Documented By: RB Ceftriaxone Sodium 2,000 mg/ (Sodium Chloride) 100 mls @ 200 mls/hr IV NOW ONE Stop: 09/14/23 15:03 Last Infusion: 09/14/23 16:00 Dose: Infused Documented By: Admin: 09/14/23 15:19 Dose: 200 mls/hr Documented By: SPF Methylprednisolone (Methylprednisolone 125 Mg/2 Ml Vial) 125 mg IV NOW ONE Stop: 09/14/23 10:48 Last Admin: 09/14/23 11:03 Dose: 125 mg Documented By: RB Vital Signs Vital signs: Vital Signs - 8 hr 09/14/23 10:30 09/14/23 10:34 09/14/23 10:46 Temperature 97.9 F Pulse Rate 89 Respiratory Rate 30 H Blood Pressure 94/52 L 94/52 L Pulse Oximetry 77 L 94 Oxygen Delivery Method Room Air BiPAP Oxygen Flow Rate 09/14/23 10:46 09/14/23 10:48 09/14/23 10:48 Temperature Pulse Rate 88 88 Respiratory Rate 23 21 Blood Pressure 94/56 L Pulse Oximetry 97 97 Oxygen Delivery Method BiPAP Oxygen Flow Rate 09/14/23 10:59 09/14/23 11:00 09/14/23 11:00 Temperature Pulse Rate 87 83 Respiratory Rate 38 H Blood Pressure 94/56 L 113/66 Pulse Oximetry 50 L 96 Oxygen Delivery Method High Flow Nasal Cannula Oxygen Flow Rate 45 09/14/23 11:10 09/14/23 11:10 09/14/23 11:15 Temperature Pulse Rate 85 83 Respiratory Rate 41 H 39 H Blood Pressure 120/64 Pulse Oximetry 99 98 Oxygen Delivery Method High Flow Nasal Cannula Oxygen Flow Rate 45 09/14/23 11:16 09/14/23 11:16 09/14/23 11:30 Temperature Pulse Rate 84 82 Respiratory Rate 35 H Blood Pressure 143/67 H Pulse Oximetry 99 98 Oxygen Delivery Method Heated High Flow Heated High Flow Oxygen Flow Rate 45 45 09/14/23 11:30 09/14/23 11:45 09/14/23 11:45 Temperature Pulse Rate 80 Respiratory Rate 35 H Blood Pressure 118/62 118/65 Pulse Oximetry 97 Oxygen Delivery Method Heated High Flow Oxygen Flow Rate 45 09/14/23 11:56 09/14/23 11:56 09/14/23 12:00 Temperature Pulse Rate 75 80 Respiratory Rate 38 H 35 H Blood Pressure 127/65 Pulse Oximetry 99 99 Oxygen Delivery Method Heated High Flow Oxygen Flow Rate 45 09/14/23 12:00 09/14/23 12:11 09/14/23 12:11 Temperature Pulse Rate 75 Respiratory Rate 31 H Blood Pressure 129/70 122/68 Pulse Oximetry 96 Oxygen Delivery Method Non -Rebreather Oxygen Flow Rate 15 09/14/23 12:15 09/14/23 12:15 09/14/23 12:30 Temperature Pulse Rate 77 70 Respiratory Rate 41 H 37 H Blood Pressure 118/65 Pulse Oximetry 97 98 Oxygen Delivery Method Non -Rebreather Heated High Flow Oxygen Flow Rate 15 45 09/14/23 12:30 09/14/23 12:45 09/14/23 12:45 Temperature Pulse Rate 70 Respiratory Rate 38 H Blood Pressure 107/58 L 111/60 Pulse Oximetry 97 Oxygen Delivery Method Heated High Flow Oxygen Flow Rate 09/14/23 13:00 09/14/23 13:00 09/14/23 13:15 Temperature Pulse Rate 68 70 Respiratory Rate 37 H 43 H Blood Pressure 107/62 Pulse Oximetry 97 97 Oxygen Delivery Method Heated High Flow Heated High Flow Oxygen Flow Rate 45 09/14/23 13:30 09/14/23 13:39 09/14/23 13:39 Temperature Pulse Rate 72 70 Respiratory Rate 32 H 37 H Blood Pressure 119/67 Pulse Oximetry 98 98 Oxygen Delivery Method Heated High Flow Oxygen Flow Rate 45 09/14/23 13:45 09/14/23 14:00 09/14/23 14:15 Temperature Pulse Rate 67 66 66 Respiratory Rate 30 H 32 H 32 H Blood Pressure Pulse Oximetry 97 95 91 Oxygen Delivery Method Heated High Flow Heated High Flow Oxygen Flow Rate 35 09/14/23 14:30 09/14/23 14:45 09/14/23 15:00 Temperature Pulse Rate 64 64 66 Respiratory Rate 29 H 33 H 34 H Blood Pressure Pulse Oximetry 93 91 95 Oxygen Delivery Method Heated High Flow Oxygen Flow Rate 35 09/14/23 15:09 09/14/23 15:10 09/14/23 15:10 Temperature Pulse Rate 66 66 66 Respiratory Rate 34 H 34 H Blood Pressure 119/67 Pulse Oximetry 95 95 Oxygen Delivery Method Oxygen Flow Rate 09/14/23 15:15 09/14/23 15:22 09/14/23 15:30 Temperature Pulse Rate 64 66 63 Respiratory Rate 34 H 29 H Blood Pressure Pulse Oximetry 91 94 96 Oxygen Delivery Method Nasal Cannula Nasal Cannula Oxygen Flow Rate 4 4 09/14/23 15:45 09/14/23 16:00 09/14/23 16:15 Temperature Pulse Rate 62 63 69 Respiratory Rate 29 H 29 H 36 H Blood Pressure Pulse Oximetry 92 93 Oxygen Delivery Method Nasal Cannula Oxygen Flow Rate 4 09/14/23 16:30 09/14/23 16:40 09/14/23 16:40 Temperature Pulse Rate 66 65 Respiratory Rate 23 29 H Blood Pressure 107/64 Pulse Oximetry 91 Oxygen Delivery Method Oxygen Flow Rate 09/14/23 16:45 09/14/23 16:45 09/14/23 17:00 Temperature Pulse Rate 63 64 Respiratory Rate 30 H 22 Blood Pressure 110/68 Pulse Oximetry 95 Oxygen Delivery Method Nasal Cannula Oxygen Flow Rate 4 09/14/23 17:00 09/14/23 17:15 09/14/23 17:16 Temperature Pulse Rate 68 67 Respiratory Rate 26 H Blood Pressure 116/68 Pulse Oximetry 94 95 Oxygen Delivery Method Oxygen Flow Rate 09/14/23 17:16 Temperature Pulse Rate Respiratory Rate Blood Pressure 133/74 Pulse Oximetry Oxygen Delivery Method Oxygen Flow Rate Medical Decision Making Lab Data 09/14/23 10:40 09/14/23 10:40 Labs: Lab Results 09/14/23 09/14/23 09/14/23 Range/Units 10:40 11:30 16:15 WBC 9.5 (4.5-11.0) X10^3/uL RBC 5.44 (4.5-5.9) X10^6/uL Hgb 17.0 (13.5-17.5) g/dL Hct 50.2 (41-53) % MCV 92.2 (80-100) fL MCH 31.3 (26-34) PG MCHC 34.0 (30-36) % RDW 14.6 (11.6-14.8) % Plt Count 188 (150-400) X10^3/uL Neut % (Auto) 87.0 H (50-75) % Lymph % (Auto) 2.1 L (25-40) % [place] % (Auto) 10.5 (3-14) % Eos % (Auto) 0.2 L (2-4) % Baso % (Auto) 0.2 (0-2) % Neut # (Auto) 8300 H (9649-3942) /uL Lymph # (Auto) 200 L (7495-4130) /uL [place] # (Auto) 1000 H (0-900) /uL Eos # (Auto) 0 (0-450) /uL Baso # (Auto) 0 (0-100) /uL PT 12.9 H (9.4-12.5) SECONDS INR 1.1 (0.9-1.3) ABG pH 7.35 (7.35-7.45) ABG pCO2 47.8 H (35-45) mmHg ABG pO2 67 L (80-100) mmHg ABG HCO3 26 (23-27) mmol/L ABG Total CO2 27 (23-27) mmol/L ABG O2 Saturation 92 L (95-100) % ABG Base Excess 0.0 (-2-3) mmol/L FiO2 % 36.0 % % Sodium 130 L (137-145) mmol/L Potassium 4.5 (3.4-5.1) mmol/L Chloride 95 L (98-107) mmol/L Carbon Dioxide 30 (22-32) mmol/L BUN 35 H (9-20) mg/dL Creatinine 1.06 (0.66-1.25) mg/dL Estimated GFR > 60 (>60) mL/min BUN/Creatinine Ratio 33.0 H (6-22) Glucose 118 H (80-110) mg/dL Lactate 1.1 (0.7-2.1) mmol/L Calcium 8.8 (8.4-10.2) mg/dL Total Bilirubin 1.1 (0.2-1.3) mg/dL AST 43 (17-59) IU/L ALT 40 (<50) IU/L Alkaline Phosphatase 111 (38-126) U/L Total Creatine Kinase 63 (55-170) U/L Troponin I < 0.012 (0.01-0.034) ng/mL NT-Pro-B Natriuret Pep 243 H (<125) pg/mL Total Protein 7.2 (6.3-8.2) g/dL Albumin 4.1 (3.5-5.0) g/dL Globulin 3.1 (1.7-4.1) g/dL Albumin/Globulin Ratio 1.3 (1.0-2.8) Chlamy pneumoniae PCR Not detected (Not Detect) Adenovirus (PCR) Not detected (Not Detect) B.parapertussis DNA PCR Not detected (Not Detecte) Coronavirus OC43 (PCR) Not detected (Not Detect) Coronavirus HKU1 (PCR) Not detected (Not Detect) Coronavirus 229E (PCR) Not detected (Not Detect) SARS-CoV-2 (PCR) Not detected (Not Detecte) Coronavirus NL63 (PCR) Not detected (Not Detect) Human Metapneumovir PCR Not detected (Not Detect) Influenza Type A (PCR) Not detected (Not Detect) Influenza Type B (PCR) Not detected (Not Detect) M. pneumoniae (PCR) Not detected (Not Detect) Parainfluenza 1 (PCR) Detected H (Not Detect) Parainfluenza 2 (PCR) Not detected (Not Detect) Parainfluenza 3 (PCR) Not detected (Not Detect) Parainfluenza 4 (PCR) Not detected (Not Detect) RSV (PCR) Not detected (Not Detect) Entero/Rhino (PCR) Not detected (Not Detect) Imaging Data Chest x-ray: Radiologist's Impression: [place] [id number] XRay Report Signed Patient: Daryl Peña MR#: [id number] : 1955 Acct:[id number] Age/Sex: 68 / M Date of Service: 09/14/23 Loc: ED Accession Number: [id number] Procedure: XR chest 1V Ordering Provider: Tootie Wood D.O. PROCEDURE: XR CHEST 1V INDICATIONS: Shortness of breath TECHNIQUE: One view of the chest was acquired. COMPARISON: [facility], [place], PET NECK TO MID THIGH, 08/31/2023, 13:32. [facility], , XR CHEST 2V, 11/14/2018, 12:31. FINDINGS: Surgical changes and devices: Right port catheter terminates in the upper SVC Lungs and pleura: Emphysematous changes, most significant in the left upper lobe. Scarring/atelectasis at the lung bases, possibly with underlying opacities and small effusions. Mediastinum: Normal heart size Bones and chest wall: Degenerative changes IMPRESSION: Emphysematous changes and likely chronic bronchitis. Scarring and superimposed possible infectious opacities and small effusion in the lower lungs. Recommend surveillance oncologic imaging given prior PET findings. Dictated by: Eben Gomes M.D. on 09/14/2023 at 11:20 Approved by: Eben Gomes M.D. on 09/14/2023 at 11:22 ECG Data Attestation: I personally reviewed and interpreted this ECG as follows: Prior ECG tracings: available for review Interpretation: Sinus rhythm with premature atrial complexes nonspecific ST changes, rate 82 WI 144 QRS is 78 QTC 441. No acute ST changes. MDM Narrative Medical decision making narrative: 68-year-old male with known COPD/emphysema, lung cancer currently on chemotherapy who presents with complaint of increasing shortness of breath. Patient does not normally use his home O2, he is noted some wheezing has had some improvement with albuterol but been very persistent. has had a recent URI. Patient is tachypneic slightly wheezy with quite a bit of work of breathing. Initially on non-rebreather had some improvement O2 did improve significantly but was ultimately placed on high-flow for additional support. Labs show white count of 9.5 hemoglobin of 17 platelets are 188 predominance of neutrophils. INR is 1.8 sodium is 130 patient was 137 at the end of August, potassium 4.5 chloride 95 with a CO2 of 30 BUN 35 creatinine 1.06, glucose of 118 lactate 1.1 LFTs are negative troponins less than 0.012 with a BNP of 243. Chest x-ray shows emphysematous changes, possible infection and small effusion. Patient has high-risk for pulmonary emboli with fairly abrupt increase patient was had CT PE shows no acute PE, slight increased nodularity and posterior middle lobe and lingula likely infectious/inflammatory also bronchial wall thickening considerably on the left. Consider future oncologic surveillance imaging. Other findings include nodules and lymphadenopathy not well assessed on this study. Respiratory panel is positive for parainfluenza 1. ABG shows pH 7.35 pCO2 of 47 PO2 of 67, bicarb 26, patient was 92% on room air. Patient would very much like to return home, has been on high-flow attempting to wean down. Discussed with patient he has to wears oxygen at home or he will definitely get significantly worse and . Patient expresses that is not his goal today. He has family in town he would like to see. Patient expresses he does not wish to be intubated or have CPR. We did review if he would like to fill out a POLST form. Patient started to fill it out he asked me to sign it they are going to review it they may sign it at home but they are going to take it with them. Patient states he is sure that he does not wish to be intubated they were discussing CPR but we discussed that without intubation that has not very effective. We did also discuss if the form is not completed by the patient it was not in affect. He has been at 4 L he is 95%, looks significantly improved in terms of his work of breathing. He is alert, appropriate and has home O2 take as well as concentrater and a nebulizer. Has albuterol at home but is starting to run out. Will send prescription, as well as for antibiotics and steroids. He does have parainfluenza but possibility of bacterial over infection so patient treated. Discussed high-risk for complications so he should return if any worsening symptoms and call 911 if severely distressed rather than coming by private auto. Discharge Plan Departure Patient Disposition: Home Clinical Impression: Acute and chronic respiratory failure with hypoxia, Parainfluenza infection Activity Restrictions/Additional Instructions: Your workup today shows your positive for parainfluenza which is a viral illness this can cause a flare of your COPD or lung disease. You may have some underlying bacterial infection as well so you are being treated with steroids to help with your breathing as well as an antibiotic. You have been provided a POLST form to review. If you would like the changes involve to be in effect you will need to sign it. Use your nebulizer every 4-6 hours as needed. Take oral antibiotics until completed your next dose is due tomorrow. Take oral steroids daily until gone. Prescription sent to [facility] in [place]. Please return for fevers, worsening shortness of breath any alterations in mental status, new chest pain, coughing up blood, new swelling of extremities, or other new or concerning changes Prescriptions: New azithromycin 250 mg tablet See Rx Instructions .ROUTE .COMPLEX Qty: 6 0RF Rx Instructions: For 250 mg dose pack: take 500 mg today (day 1), then 250 mg for 4 days (days 2-5) prednisone 10 mg tablets,dose pack See Rx Instructions .ROUTE .COMPLEX Qty: 21 0RF Rx Instructions: orally per package directions albuterol sulfate 2.5 mg /3 mL (0.083 %) solution for nebulization 2.5 mg inhalation Q4-6H PRN (Reason: shortness of breath or wheezing) Qty: 90 0RF ipratropium bromide 0.02 % solution 2.5 ml inhalation Q6H PRN (Reason: shortness of breath or wheezing) Qty: 75 0RF No Action oxycodone 10 mg tablet 10 mg PO Q6H PRN (Reason: Pain, Moderate) amlodipine 5 mg tablet 5 mg PO DAILY Qty: 90 2RF lisinopril 20 mg tablet 20 mg PO DAILY Qty: 90 2RF albuterol sulfate 90 mcg/actuation HFA aerosol inhaler 2 puff INHALATION Q4-6H PRN (Reason: shortness of breath or wheezing) Qty: 8 1RF Keytruda 25 mg/mL solution 175 mg IV Q3W Rx Instructions: administer over 30 mins aspirin 81 mg Tablet,Delayed Release (Dr/Ec) 81 mg PO DAILY folic acid 1 mg Tablet 2 mg PO DAILY Rx Instructions: Take 1 tablet (1 mg total) by mouth daily initiate one week prior to prmetrexed chemotherapy and continue for 3 weeks after last dose of premtrexed. famotidine 20 mg Tablet 20 mg PO BEDTIME Qty: 90 0RF Rx Instructions: 1 tab at bedtime to protect stomach while taking steroids prednisone 5 mg Tablet See Rx Instructions .ROUTE .COMPLEX Qty: 100 0RF Rx Instructions: Take 5 mg (1 pill) by mouth in the morning, and take 2.5 mg (half pill) by mouth in the afternnon. olanzapine 5 mg tablet 5 mg PO ONCE PM ondansetron 8 mg tablet,disintegrating 8 mg PO 3XD dexamethasone 4 mg tablet 8 mg PO DAILY Rx Instructions: Take 2 tablets (8mg total) by mouth 2 (Two) times a day take for three consecutive days starting one day proir to chemotherapy. prochlorperazine maleate 10 mg tablet 10 mg PO PRN PRN (Reason: Nausea) lorazepam 0.5 mg tablet 0.5 mg PO TID Rx Instructions: 1 tab by mouth 3 times daily for acute anxiety. Not indicated for chronic use. Referrals: Lala Mccartney DO [Primary Care Provider] - Stand Alone Forms: Patient Portal/API
[2023-09-14 10:52] LABS: Add Manual Diff / Slide Review NO; Basophils Absolute Auto 0 /uL (0-100); Basophils Percent Auto 0.2 % (0-2); Eosinophils Absolute Auto 0 /uL (0-450); Eosinophils Percent Auto 0.2 % (2-4); Hematocrit 50.2 % (41-53); Lymphocytes Absolute Auto 200 /uL (1100-4500); Lymphocytes Percent Auto 2.1 % (25-40); Mean Corpuscular Hemoglobin 31.3 PG (26-34); Mean Corpuscular Volume 92.2 fL (80-100); Monocytes Absolute Auto 1000 /uL (0-900); Monocytes Percent Auto 10.5 % (3-14); Neutrophils Absolute Auto 8300 /uL (1500-7000); Platelet Count 188 X10^3/uL (150-400); Red Blood Cell Count 5.44 X10^6/uL (4.5-5.9); Red Cell Distribution Width 14.6 % (11.6-14.8); White Blood Cell Count 9.5 X10^3/uL (4.5-11.0)
[2023-09-14 10:56] LABS: INR 1.1 (0.9-1.3); Prothrombin Time 12.9 SECONDS (9.4-12.5)
[2023-09-14] MEDS: ALBUTEROL/IPRATROPIUM 3 ML AMPUL INH (10:58)
[2023-09-14 11:02] LABS: Alanine Aminotransferase 40 IU/L (<50); Albumin 4.1 g/dL (3.5-5.0); Albumin Globulin Ratio 1.3 (1.0-2.8); Alkaline Phosphatase 111 U/L (38-126); Aspartate Aminotransferase 43 IU/L (17-59); Bilirubin Total 1.1 mg/dL (0.2-1.3); Blood Urea Nitrogen 35 mg/dL (9-20); Calcium 8.8 mg/dL (8.4-10.2); Carbon Dioxide 30 mmol/L (22-32); Chloride 95 mmol/L (98-107); Creatine Kinase 63 U/L (55-170); Estimated Glomerular Filt Rate > 60 mL/min (>60); Globulin 3.1 g/dL (1.7-4.1); Glucose 118 mg/dL (80-110); HEMOLYSIS < 15 (0-50); Potassium 4.5 mmol/L (3.4-5.1); Sodium 130 mmol/L (137-145); Total Protein 7.2 g/dL (6.3-8.2)
[2023-09-14 11:03] LABS: Lactate (Lactic Acid) 1.1 mmol/L (0.7-2.1)
[2023-09-14] MEDS: methylPREDNISolone 125 MG/2 ML VIAL IV (11:03)
[2023-09-14] MEDS: SODIUM CHLORIDE 0.9% 1,000 ML 1000 ML IV (11:03)
[2023-09-14 11:13] LABS: NT-proBNP (BNP-Adult 18+) 243 pg/mL (<125); Troponin I < 0.012 ng/mL (0.01-0.034)
--- NOTE | 2023-09-14 11:33 | EKG_ITS ---
[facility] [address] [place] [address] Test Date: 2023-09-14 Pat Name: Daryl Peña Department: [facility] Room: Gender: Male Template Inspector: DEBORAH : 1955 Requested By: Order Number: [id number] Reading MD: Jaime Hyatt MD Measurements Intervals [place] Rate: 82 P: 80 HI: 144 QRS: 77 QRSD: 78 T: 72 QT: 378 QTc: 441 Interpretive Statements Sinus rhythm with premature atrial complexes Nonspecific ST and T wave abnormality Electronically Signed On 09-15-2023 7:35:47 PDT by Jaime Hyatt MD
--- NOTE | 2023-09-14 12:05 | DI.CT.S_ITS ---
PROCEDURE: CT ANGIO CHEST PE PROTOCOL INDICATIONS: SOB, hx COPD/active lung ca, r/o pe TECHNIQUE: After the administration of intravenous contrast, 2 mm thick sections acquired from the pulmonary apices to the posterior costophrenic angles. 3-dimensional maximum intensity projection (MIP) coronal and sagittal reformats were then acquired through the thorax. For radiation dose reduction, the following was used: automated exposure control, adjustment of mA and/or kV according to patient size. COMPARISON: [place], [place], PET NECK TO MID THIGH, 08/31/2023, 13:32. FINDINGS: Image quality: Diagnostic Lungs and pleura: Emphysema. Scattered scarring atelectasis. There is increased nodularity and septal thickening in the lingula and middle lobe. No drainable pleural effusions. Pulmonary nodules are better assessed on recent PET. Mediastinum, heart, and esophagus: There is no acute pulmonary embolism. Malignant lymphadenopathy in the josr, and mediastinum are better assessed on recent PET. There is diffuse bronchial wall thickening. Atherosclerotic calcifications. No cardiomegaly. Chest wall and thyroid: Unremarkable There is a right port catheter terminating in the SVC Upper abdomen: Bilateral adrenal thickening partially seen. Upper abdomen is not well seen on this study. Bones: Degenerative changes IMPRESSION: No acute pulmonary embolism. Slightly increased nodularity and opacities in the middle lobe and lingula, likely infectious/inflammatory. There is also bronchial wall thickening particularly on the left. Consider future oncologic surveillance imaging. Other oncologic findings including pulmonary nodules and lymphadenopathy are not well assessed on this study. Dictated by: Eben Gomes M.D. on 09/14/2023 at 12:44 Approved by: Eben Gomes M.D. on 09/14/2023 at 12:50
[2023-09-14 12:19] LABS: Adenovirus Not Detected (Not Detect); B. parapertussis Not Detected (Not Detecte); Bordetella pertussis Not Detected (Not Detect); Chlamydophila pneumoniae Not Detected (Not Detect); Coronavirus 229E Not Detected (Not Detect); Coronavirus HKU1 Not Detected (Not Detect); Coronavirus NL 63 Not Detected (Not Detect); Coronavirus OC43 Not Detected (Not Detect); Human Metapneumovirus Not Detected (Not Detect); Human Rhinovirus/Enterovirus Not Detected (Not Detect); Influenza A Not Detected (Not Detect); Influenza B Not Detected (Not Detect); Mycoplasma pneumoniae Not Detected (Not Detect); Parainfluenza Virus 1 Detected (Not Detect); Parainfluenza Virus 2 Not Detected (Not Detect); Parainfluenza Virus 3 Not Detected (Not Detect); Parainfluenza Virus 4 Not Detected (Not Detect); Respiratory Syncytial Virus Not Detected (Not Detect); SARS- CoV-2 Not Detected (Not Detecte)
--- NOTE | 2023-09-14 12:20 | PC.NURSE ---
RT consulted to transfer pt to CT for imaging. RT requested 15L on non rebreather for transport. Pt on teletypesetter monitor with non rebreather for transport and tolerated well. Pt back in room and placed on heated high flow. Pt endorses being upset that he is sick because his grandson Justus is in town visiting for 3 days. Spouse at bedside. Pt alert and oriented, denying pain and states breathing is feeling much better.
[2023-09-14] MEDS: cefTRIAXone 2,000 MG in SODIUM CHLORIDE 0.9% 100 ML 200 MG IV (15:19)
[2023-09-14] MEDS: AZITHROMYCIN 250 MG TABLET 500 MG PO (15:19)
[2023-09-14 16:18] LABS: HCO3 ABG 26 mmol/L (23-27); Oxygen Saturation ABG 92 % (95-100); PCO2 ABG 47.8 mmHg (35-45); PO2 ABG 67 mmHg (80-100); TCO2 ABG 27 mmol/L (23-27); pH ABG 7.35 (7.35-7.45)
[2023-09-14 18:19] LABS: Allen Test for ABG Passed? Yes, Passed; Blood Gas Collection Site Right Brachial
== END 2023-09-14 17:24 | disposition home or self-care (01) ==
PROVIDERS: Emergency Provider Emergency Medicine; PCP Family Medicine
DX: J96.21 Acute and chronic respiratory failure with hypoxia (principal); B34.8 Other viral infections of unspecified site; Z87.891 Personal history of nicotine dependence
CPT/HCPCS: 36415; 36600; 71045; 71275; 80053; 82550; 82805; 83605; 83880; 84484; 85025; 85610; 87040; 87633; 93005; 93010; 99285; J0696; J2919; Q9967

== ENCOUNTER 2023-09-15 05:00 | Inpatient (IN) | payer OTHER, SELFPAY ==
[2022-11-01 15:34] VITALS: BMI 22.9
[2023-09-15] VITALS (14 sets, daily range): BP systolic 110–158; BP diastolic 62–79; PULSE 69–98; RESP 18–32; TEMP 36.2–37.1; O2SAT 94–100; BMI 17.8
--- NOTE | 2023-09-15 05:11 | ED_ITS ---
HPI - SOB/Dyspnea General Chief Complaint: Shortness of Breath/Dyspnea Stated Complaint: sob Time Seen by Provider: 09/15/23 05:07 History of Present Illness HPI Narrative: 68-year-old male with history of COPD, history of lung cancer with ongoing chemotherapy, chronic hypoxia usually on 4L nasal cannula oxygen, known to be noncompliant with his oxygen, yesterday was seen here with increased shortness of breath, initial sats 66% on room air not wearing his oxygen, was on non- rebreather mask from EMS and eventually after steroids and bronchodilator treatments weaned to his usual 4L, found to have parainfluenza infection on testing, offered admission, but elected to go home, having more shortness of breath again last few hours overnight, still has cough productive of white- yellow sputum, using home breathing treatment, feeling more short of breath at home even on his oxygen, arrived again by EMS, given albuterol 10 mg nebulized en route, given Solu-Medrol IV bolus 125 mg EN route. Related Data Home Medications Medication Instructions Recorded Confirmed aspirin 81 mg tablet,delayed 81 mg PO DAILY 12/02/17 09/15/23 release folic acid 1 mg tablet 2 mg PO DAILY 04/27/18 09/15/23 oxycodone 10 mg tablet 10 mg PO Q6H PRN Pain, Moderate 05/06/23 09/15/23 dexamethasone 4 mg tablet 8 mg PO DAILY 09/14/23 09/15/23 lorazepam 0.5 mg tablet 0.5 mg PO TID 09/14/23 09/15/23 ondansetron 8 mg disintegrating 8 mg PO 3XD 09/14/23 09/15/23 tablet prochlorperazine maleate 10 mg 10 mg PO PRN PRN Nausea 09/14/23 09/15/23 tablet Previous Rx's Medication Instructions Recorded famotidine 20 mg tablet 20 mg PO BEDTIME GI prophalyxis 06/01/22 #90 tabs prednisone 5 mg tablet See Rx Instructions .Route 08/04/22 .COMPLEX adrenal insufficiency #100 tabs amlodipine 5 mg tablet 5 mg PO DAILY #90 tabs 02/24/23 lisinopril 20 mg tablet 20 mg PO DAILY #90 tabs 02/24/23 albuterol sulfate 90 mcg/actuation 2 puff inhalation Q4-6H PRN 07/21/23 aerosol inhaler shortness of breath or wheezing #8 grams albuterol sulfate 2.5 mg/3 mL 2.5 mg (3 mL) inhalation Q4-6H PRN 09/14/23 (0.083 %) solution for nebulization shortness of breath or wheezing #90 mL azithromycin 250 mg tablet See Rx Instructions PO .COMPLEX #6 09/14/23 tabs ipratropium bromide 0.02 % 2.5 ml inhalation Q6H PRN 09/14/23 solution for inhalation shortness of breath or wheezing #75 mL prednisone 10 mg tablets in a dose See Rx Instructions PO .COMPLEX 09/14/23 pack #21 ea Allergies Allergy/AdvReac Type Severity Reaction Status Date / Time ciprofloxacin AdvReac Intermediate SEVERE Verified 05/17/23 10:58 NAUSEA zolpidem [From Ambien] AdvReac Intermediate Nausea Verified 05/17/23 10:58 Review of Systems Review of Systems Narrative: see HPI Patient History Medical History (Updated 09/15/23 @ 07:17 by John Hall MD) GERD (gastroesophageal reflux disease) Atrial fibrillation (04/2014) Lung cancer (04/2014) Back pain Frequent UTI Surgical History History of esophagogastroduodenoscopy (EGD) (10/20/16) Status post colonoscopy (10/20/16) Status post hemorrhoidectomy (07/02/08) Status post biopsy (04/2014) Social History Smoking Status: Former smoker Tobacco: How many years used: 50 alcohol intake: former substance use type: does not use Smoking Status: Former smoker Substance Use Type: does not use Exam Narrative Exam Narrative: GENERAL: Well-developed patient, in respiratory distress, speaking short of full sentences, abdominal breathing with suprasternal retractions, anxious appearing. HEAD: Atraumatic. Normocephalic. EYES: Pupils equal round and reactive. Extraocular motions intact. No scleral icterus. No injection or drainage. ENT: Nose without bleeding, purulent drainage. Throat without erythema, tonsillar hypertrophy or exudate. Airway patent. NECK: Trachea midline. Non tender CARDIOVASCULAR: Regular rate and rhythm without murmurs, gallops, or rubs. RESPIRATORY: Diffuse wheeze, moving air, no bibasilar crackles, speaking short of full sentences, suprasternal retractions, abdominal breathing also present, GASTROINTESTINAL: Abdomen soft, non-tender, nondistended. EXTREMITIES: No edema or joint tenderness. BACK: Nontender without deformity or crepitance. No flank tenderness. NEURO: AOx3. Nonfocal motor exam SKIN: No rash or erythema of visible areas Initial Vital Signs Initial Vital Signs: Vital Signs Pulse Rate 98 H 09/15/23 05:04 Blood Pressure 158/77 H 09/15/23 05:04 Pulse Oximetry 94 09/15/23 05:04 Oxygen Delivery Method Nasal Cannula 09/15/23 05:04 Oxygen Flow Rate 4 09/15/23 05:04 Course Orders Ordered: ED Orders 09/15/23 05:14 BiPAP Ventilatory Support RT PROTOCOL 09/15/23 05:15 Arterial Blood Gas STAT 09/15/23 05:16 XR chest 1V Stat 09/15/23 05:17 EKG-12 Lead Stat 09/15/23 05:20 BMP [Basic Metabolic Panel] Stat CBC Auto Diff [Complete Blood Count AUTO DIFF] Stat Lactate (Lactic Acid) Stat Troponin I Stat Acetaminophen (Acetaminophen 325 Mg Tablet) 650 mg PO Q6H PRN PRN Reason: Fever/Mild Pain (1-3) Albuterol (Albuterol 2.5 Mg/3 Ml Neb (Adult)) 2.5 mg INH [id number] PRN PRN Reason: Shortness Of Breath Albuterol/Ipratropium (Albuterol/Ipratropium 3 Ml Ampul) 3 ml INH RTTID [facility] Amlodipine Besylate (Amlodipine 5 Mg Tablet) 5 mg PO DAILY [facility] Aspirin (Aspirin Ec 81 Mg Tablet) 81 mg PO DAILY [facility] Azithromycin (Azithromycin 250 Mg Tablet) 250 mg PO DAILY YI Stop: 09/19/23 09:01 Enoxaparin Sodium (Enoxaparin 40 Mg/0.4 Ml Syringe) 40 mg SUBCUT DAILY [facility] Guaifenesin (Guaifenesin Er 600 Mg Tab) 600 mg PO BID [facility] Lorazepam (Lorazepam 0.5 Mg Tablet) 0.5 mg PO TID [facility] Methylprednisolone (Methylprednisolone 125 Mg/2 Ml Vial) 60 mg IV Q12H [facility] Naloxone HCl (Naloxone 0.4 Mg/Ml Vial) 0.2 mg IV Q2MIN PRN PRN Reason: Opiate Reversal Oxycodone HCl (Oxycodone Ir 10 Mg Tablet) 10 mg PO Q6H PRN PRN Reason: Pain, Moderate Pantoprazole Sodium (Pantoprazole 40 Mg Vial) 40 mg IV DAILY YI Discontinued Medications Albuterol/Ipratropium (Albuterol/Ipratropium 3 Ml Ampul) 3 ml INH NOW ONE Stop: 09/15/23 05:08 Last Admin: 09/15/23 05:16 Dose: 3 ml Magnesium Sulfate (Magnesium Sulfate) 2 gm in 50 mls @ 150 mls/hr IV NOW ONE Stop: 09/15/23 05:55 Last Infusion: 09/15/23 06:06 Dose: Infused Methylprednisolone (Methylprednisolone 125 Mg/2 Ml Vial) 125 mg IV NOW ONE Stop: 09/15/23 05:15 Last Admin: 09/15/23 05:24 Dose: Not Given Vital Signs Vital signs: Vital Signs - 8 hr 09/15/23 05:04 09/15/23 05:04 09/15/23 05:09 Temperature 98 F Pulse Rate 98 H 95 H Respiratory Rate 30 H Blood Pressure 158/77 H 158/77 H Pulse Oximetry 94 94 Oxygen Delivery Method Nasal Cannula Nasal Cannula Oxygen Flow Rate 4 4 MDM - SOB/Dyspnea Lab Data Attestation: I reviewed the patient's lab results. 09/15/23 05:20 09/15/23 05:20 Labs: Lab Results 09/15/23 Range/Units 05:20 WBC 10.9 (4.5-11.0) X10^3/uL RBC 5.31 (4.5-5.9) X10^6/uL Hgb 16.5 (13.5-17.5) g/dL Hct 49.0 (41-53) % MCV 92.3 (80-100) fL MCH 31.0 (26-34) PG MCHC 33.6 (30-36) % RDW 14.8 (11.6-14.8) % Plt Count 164 (150-400) X10^3/uL Neut % (Auto) 86.7 H (50-75) % Lymph % (Auto) 4.1 L (25-40) % [place] % (Auto) 9.1 (3-14) % Eos % (Auto) 0.0 L (2-4) % Baso % (Auto) 0.1 (0-2) % Neut # (Auto) 9500 H (8955-7957) /uL Lymph # (Auto) 400 L (6913-5994) /uL [place] # (Auto) 1000 H (0-900) /uL Eos # (Auto) 0 (0-450) /uL Baso # (Auto) 0 (0-100) /uL Sodium 132 L (137-145) mmol/L Potassium 4.5 (3.4-5.1) mmol/L Chloride 100 (98-107) mmol/L Carbon Dioxide 29 (22-32) mmol/L BUN 27 H (9-20) mg/dL Creatinine 0.76 (0.66-1.25) mg/dL Estimated GFR > 60 (>60) mL/min BUN/Creatinine Ratio 35.5 H (6-22) Glucose 172 H (80-110) mg/dL Lactate 2.2 H (0.7-2.1) mmol/L Calcium 8.3 L (8.4-10.2) mg/dL Troponin I < 0.012 (0.01-0.034) ng/mL Imaging Data Chest x-ray: My Impression: COPD changes, some hilar densities, no dominant lobar infiltrate, no large hemothorax or pleural effusion obvious. ED wet read Radiologist's Impression: Chest x-ray single view study. Impressions: ?Similar cardiopulmonary findings. ? See tele radiology report. There is mention of right chest Port-A-Cath, prominent pulmonary vascularity, similar pulmonary hyperinflation and left upper lobe predominant emphysema, similar bilateral reticulonodular interstitial opacities and mild left basilar airspace abnormalities, blunting costophrenic angles left more than right. See tele radiology report ECG Data Attestation: I personally reviewed and interpreted this ECG as follows: Interpretation: Normal sinus rhythm with rate of 90, no obvious ST segment elevation or depression changes. NJ 148, QRS 82, QTC 450. [facility] Narrative Medical decision making narrative: 68-year-old male with history of COPD, chronic hypoxia, recent diagnosis parainfluenza infection, seen here yesterday with increased dyspnea off his home oxygen, eventually was on non-rebreather weaned back down to his 4 L oxygen for discharge, had declined admission, however has increased shortness of breath despite oxygen use, current wheezy, respiratory distress, BiPAP initiated, ABG and chest x-ray and EKG pending. EMS gave IV Solu-Medrol, and 10 mg albuterol. We will give SVN DuoNeb, IV magnesium. Anticipate admission to ICU. Patient seems now agreeable to admission Portable chest x-ray shows COPD changes, no pneumothorax, no hemothorax, no obvious fluid overload. My wet read 0530, ABG on 5 L oxygen, showed pH 7.24, pCO2 62.2, PaO2 87, base excess-2.5 noted. BiPAP was not tolerated, patient kept taking it off, yesterday he did apparently try/tolerate high-flow nasal cannula, we will try HFNC. Respiratory in agreement with this plan, patient seems agreeable to this plan. Will contact hospitalist EKG shows normal sinus rhythm rate 90, no obvious ST segment elevation or depression changes. 0610, case discussed with hospitalist Dr. Hall, accepts patient for admission to inpatient ICU Critical Care Time Critical Care Time Critical Care Time: Yes Total Critical Care Time: 35 Attestation: The high probability of a clinically significant, sudden or life threatening deterioration of the [cardiopulmonary] system(s) required my full and direct attention, intervention and personal management. The aggregate critical care time was [35] minutes. This time is in addition to time spent performing reported procedures but includes the following: [x] Data Review and interpretation [x] Patient assessment and monitoring of vital signs [x] Documentation [x] Medication orders and management Discharge Plan Departure Patient Disposition: Admitted As Inpatient Clinical Impression: Acute respiratory distress, Parainfluenza infection, COPD exacerbation, Bilateral wheezing, Lung cancer, hilus Admit Date/Time: 09/15/23 06:17 Admit Provider: John Mari
[2023-09-15] MEDS: ALBUTEROL/IPRATROPIUM 3 ML AMPUL INH ×4 (05:16→20:32)
--- NOTE | 2023-09-15 05:16 | DI.RAD.S_ITS ---
PROCEDURE: XR CHEST 1V INDICATIONS: dyspnea TECHNIQUE: One view of the chest was acquired. COMPARISON: [facility], CR, XR CHEST 1V, 09/14/2023, 11:02. FINDINGS: Surgical changes and devices: Right-sided Port-A-Cath, tip in the superior cava. Lungs and pleura: Lungs again demonstrate emphysematous changes throughout, greatest in the left upper lung. Blunting seen of the costophrenic angles which may represent small pleural effusions are pleural thickening.. Compared study of 09/14/2023, there is now increasing airspace disease in the left lower lung, likely pneumonia. Right lung appears unchanged. Mediastinum: Heart is normal in size. There is tortuosity in the aorta. Prominent bilateral pulmonary arteries which can be seen with the pulmonary artery hypertension. Bones and chest wall: No suspicious bony lesions. Overlying soft tissues appear unremarkable. IMPRESSION: Left lower lung airspace disease, likely pneumonia, superimposed on chronic lung disease. Prominent pulmonary outflow tracts which can be seen with pulmonary artery hypertension. Dictated by: Omer Cooley M.D. on 09/15/2023 at 8:16 Approved by: Omer Cooley M.D. on 09/15/2023 at 8:30
--- NOTE | 2023-09-15 05:17 | EKG_ITS ---
[facility] [address] [address] Test Date: 2023-09-15 Pat Name: Daryl Peña Department: [facility] Room: Gender: Male [employer]: EVIN Avila : 1955 Requested By: Order Number: [id number] Reading MD: Jaime Hyatt MD Measurements Intervals Raphine Rate: 90 P: 84 [place]: 148 QRS: 80 QRSD: 82 T: 60 QT: 368 QTc: 450 Interpretive Statements Normal sinus rhythm Possible Left atrial enlargement Electronically Signed On 09-15-2023 7:37:40 PDT by Jaime Hyatt MD
[2023-09-15 05:29] LABS: Add Manual Diff / Slide Review NO; Basophils Absolute Auto 0 /uL (0-100); Basophils Percent Auto 0.1 % (0-2); Eosinophils Absolute Auto 0 /uL (0-450); Hemoglobin 16.5 g/dL (13.5-17.5); Lymphocytes Absolute Auto 400 /uL (1100-4500); Lymphocytes Percent Auto 4.1 % (25-40); Mean Corpuscular HGB Conc 33.6 % (30-36); Mean Corpuscular Volume 92.3 fL (80-100); Monocytes Absolute Auto 1000 /uL (0-900); Monocytes Percent Auto 9.1 % (3-14); Neutrophils Absolute Auto 9500 /uL (1500-7000); Neutrophils Percent Auto 86.7 % (50-75); Platelet Count 164 X10^3/uL (150-400); Red Blood Cell Count 5.31 X10^6/uL (4.5-5.9); Red Cell Distribution Width 14.8 % (11.6-14.8); White Blood Cell Count 10.9 X10^3/uL (4.5-11.0)
[2023-09-15 05:37] LABS: Lactate (Lactic Acid) 2.2 mmol/L (0.7-2.1)
[2023-09-15 05:38] LABS: BUN Creatinine Ratio 35.5 (6-22); Blood Urea Nitrogen 27 mg/dL (9-20); Calcium 8.3 mg/dL (8.4-10.2); Carbon Dioxide 29 mmol/L (22-32); Chloride 100 mmol/L (98-107); Estimated Glomerular Filt Rate > 60 mL/min (>60); Glucose 172 mg/dL (80-110); HEMOLYSIS 20 (0-50); Potassium 4.5 mmol/L (3.4-5.1); Sodium 132 mmol/L (137-145)
[2023-09-15] MEDS: MAGNESIUM SULFATE 2 GM/50 ML PIGGYBACK IV (05:42)
[2023-09-15 05:50] LABS: Troponin I < 0.012 ng/mL (0.01-0.034)
--- NOTE | 2023-09-15 06:59 | P.HP_ITS ---
History of Present Illness History of Present Illness Chief complaint: sob Narrative: 68 y/o with PMH of lung cancer, undergoing chemotherapy, 4 L of oxygen-dependent COPD, HTN and frequent non-compliance with oxygen, who came to the ER this morning extremely short of breath. He was seen yesterday with similar dyspnea, had nebulized albuterol, solumedrol, diagnosed with parainfluenza, offered to stay but decided to go home. CXR w/o infiltrates, w/o leukocytosis, afebrile. [facility] Medical History (Updated 09/15/23 @ 07:17 by John Hall MD) GERD (gastroesophageal reflux disease) Atrial fibrillation (04/2014) Lung cancer (04/2014) Back pain Frequent UTI Surgical History History of esophagogastroduodenoscopy (EGD) (10/20/16) Status post colonoscopy (10/20/16) Status post hemorrhoidectomy (07/02/08) Status post biopsy (04/2014) Social History Smoking Status: Former smoker Tobacco: How many years used: 50 alcohol intake: former substance use type: does not use Meds Home Medications and Allergies Home Medications Medication Instructions Recorded Confirmed Type aspirin 81 mg tablet,delayed 81 mg PO DAILY 12/02/17 09/15/23 History release folic acid 1 mg tablet 2 mg PO DAILY 04/27/18 09/15/23 History famotidine 20 mg tablet 20 mg PO BEDTIME GI prophalyxis 06/01/22 09/15/23 Rx #90 tabs prednisone 5 mg tablet See Rx Instructions .Route 08/04/22 09/15/23 Rx .COMPLEX adrenal insufficiency #100 tabs amlodipine 5 mg tablet 5 mg PO DAILY #90 tabs 02/24/23 09/15/23 Rx lisinopril 20 mg tablet 20 mg PO DAILY #90 tabs 02/24/23 09/15/23 Rx oxycodone 10 mg tablet 10 mg PO Q6H PRN Pain, Moderate 05/06/23 09/15/23 History albuterol sulfate 90 mcg/actuation 2 puff inhalation Q4-6H PRN 07/21/23 09/15/23 Rx aerosol inhaler shortness of breath or wheezing #8 grams albuterol sulfate 2.5 mg/3 mL 2.5 mg (3 mL) inhalation Q4-6H PRN 09/14/23 09/15/23 Rx (0.083 %) solution for nebulization shortness of breath or wheezing #90 mL azithromycin 250 mg tablet See Rx Instructions PO .COMPLEX #6 09/14/23 09/15/23 Rx tabs dexamethasone 4 mg tablet 8 mg PO DAILY 09/14/23 09/15/23 History ipratropium bromide 0.02 % 2.5 ml inhalation Q6H PRN 09/14/23 09/15/23 Rx solution for inhalation shortness of breath or wheezing #75 mL lorazepam 0.5 mg tablet 0.5 mg PO TID 09/14/23 09/15/23 History ondansetron 8 mg disintegrating 8 mg PO 3XD 09/14/23 09/15/23 History tablet prednisone 10 mg tablets in a dose See Rx Instructions PO .COMPLEX 09/14/23 09/15/23 Rx pack #21 ea prochlorperazine maleate 10 mg 10 mg PO PRN PRN Nausea 09/14/23 09/15/23 History tablet Allergies Allergy/AdvReac Type Severity Reaction Status Date / Time ciprofloxacin AdvReac Intermediate SEVERE Verified 05/17/23 10:58 NAUSEA zolpidem [From Ambien] AdvReac Intermediate Nausea Verified 05/17/23 10:58 Review of Systems Constitutional Comments: w/o fever or chills Cardiovascular Comments: w/o chest pain or palpitations Respiratory Comments: severe shortness of breath, wheezy, non-productive cough Gastrointestinal Comments: heartburn Genitourinary Comments: w/o voiding difficulties or dysuria Musculoskeletal Comments: chronic back pain Psychiatric Comments: anxious Exam Vital Signs (past 8 hours): - 09/15/23 05:04 09/15/23 05:04 09/15/23 05:09 Temperature 98 F Pulse Rate 98 H 95 H Respiratory Rate 30 H Blood Pressure 158/77 H 158/77 H Pulse Oximetry 94 94 Oxygen Delivery Method Nasal Cannula Nasal Cannula Oxygen Flow Rate 4 4 Oxygen Delivery Method Nasal Cannula Oxygen Flow Rate 4 Const Other: in respiratory distress HENMT Other: high-flow oxygen Neck Other: supple Resp Other: decreased airflow b/l, wheezing Cardio Other: RRR Skin Other: no rashes Psych Other: anxious Objective ECG Impression: NSR w/o ischemic changes Labs 09/15/23 05:20 09/15/23 05:20 Labs: Laboratory Results - last 24 hr 09/15/23 05:20 WBC 10.9 RBC 5.31 Hgb 16.5 Hct 49.0 MCV 92.3 MCH 31.0 MCHC 33.6 RDW 14.8 Plt Count 164 Neut % (Auto) 86.7 H Lymph % (Auto) 4.1 L [place] % (Auto) 9.1 Eos % (Auto) 0.0 L Baso % (Auto) 0.1 Neut # (Auto) 9500 H Lymph # (Auto) 400 L [place] # (Auto) 1000 H Eos # (Auto) 0 Baso # (Auto) 0 Sodium 132 L Potassium 4.5 Chloride 100 Carbon Dioxide 29 BUN 27 H Creatinine 0.76 Estimated GFR > 60 BUN/Creatinine Ratio 35.5 H Glucose 172 H Lactate 2.2 H Calcium 8.3 L Troponin I < 0.012 Assessment & Plan Assessment and plan (1) COPD exacerbation: Status: Acute (2) Parainfluenza infection: Status: Acute (3) Acute and chronic respiratory failure with hypoxia: Status: Acute (4) Metastatic lung cancer (metastasis from lung to other site): Qualifiers: Laterality: unspecified laterality Qualified Code(s): C34.90 - Malignant neoplasm of unspecified part of unspecified bronchus or lung Status: Chronic (5) Hypertension: Qualifiers: Hypertension type: essential hypertension Qualified Code(s): I10 - Essential (primary) hypertension Status: Chronic (6) Lower back pain: Qualifiers: Chronicity: chronic Back pain laterality: unspecified Sciatica presence: without sciatica Qualified Code(s): M54.50 - Low back pain, unspecified; G89.29 - Other chronic pain Status: Acute (7) Anxiety: Status: Chronic (8) GERD (gastroesophageal reflux disease): Qualifiers: Esophagitis presence: without esophagitis Qualified Code(s): K21.9 - Gastro-esophageal reflux disease without esophagitis Status: Acute Assessment & Plan narrative: Acute on chronic hypoxemic respiratory failure / COPD Exacerbation / Parainfluenza bronchitis - bronchodilators, steroid, zithromax, mucinex - high-flow oxygen Metastatic Lung Carcinoma - follows with oncology - palliative chemotherapy HTN - Norvasc 5 mg daily, Lisinopril 20 mg daily GERD - Protonix LBP - Oxycodone prn - chronic Anxiety - Lorazepam DVT prophylaxis - Lovenox Time-Based Coding :: [TOTAL MINUTES] spent with patient and on the chart (including review of chart, obtaining history, exam, reviewing outside data, placing orders, documenting exam and treatment plan, and counseling patient) on [DATE].
[2023-09-15 07:03] LABS: Reflexed Lactate in 2 Hours Y
--- NOTE | 2023-09-15 07:23 | PM.HP.1 ---
History of Present Illness History of Present Illness Date Patient Seen: 09/15/23 Chief complaint: sob Narrative: From night doctor: 68 y/o with PMH of lung cancer, undergoing chemotherapy, 4 L of oxygen-dependent COPD, HTN and frequent non-compliance with oxygen, who came to the ER this morning extremely short of breath. He was seen yesterday with similar dyspnea, had nebulized albuterol, solumedrol, diagnosed with parainfluenza, offered to stay but decided to go home. CXR w/o infiltrates, w/o leukocytosis, afebrile. ED course: Given bronchodilators and IV steroids in the ED, declined BiPAP. PCO2 is 68. PCR positive for parainfluenza. S: He has been ill for several days with progressive dyspnea. He was diagnosed with parainfluenza by PCR in the ED. He states that a week or 2 ago it was quite ambulatory and functional and much better. He was never been on a ventilator before in his unsure how he feels about this. He was currently being treated for recurrence of his lung cancer. He was status post 1 session with chemotherapy I [facility] with Dr. Koenig. He denies fevers or chills, no chest pain or palpitations. No leg edema. No hemoptysis. Initially in the ED, he was on high-flow oxygen but has not improved significantly. He was pCO2 was 62.2. He was able to wean off from high-flow and transfer to floor of feeling much better. He is able to speak in full sentences and is on oxygen nasal cannula. [facility] Medical History GERD (gastroesophageal reflux disease) Atrial fibrillation (04/2014) Lung cancer (04/2014) Back pain Frequent UTI Surgical History History of esophagogastroduodenoscopy (EGD) (10/20/16) Status post colonoscopy (10/20/16) Status post hemorrhoidectomy (07/02/08) Status post biopsy (04/2014) Social History household members: spouse Smoking Status: Former smoker Tobacco: How many years used: 50 alcohol intake: former substance use type: does not use Meds Home Medications and Allergies Home Medications Medication Instructions Recorded Confirmed Type aspirin 81 mg tablet,delayed 81 mg PO DAILY 12/02/17 09/15/23 History release folic acid 1 mg tablet 2 mg PO DAILY 04/27/18 09/15/23 History famotidine 20 mg tablet 20 mg PO BEDTIME GI prophalyxis 06/01/22 09/15/23 Rx #90 tabs prednisone 5 mg tablet See Rx Instructions .Route 08/04/22 09/15/23 Rx .COMPLEX adrenal insufficiency #100 tabs amlodipine 5 mg tablet 5 mg PO DAILY #90 tabs 02/24/23 09/15/23 Rx lisinopril 20 mg tablet 20 mg PO DAILY #90 tabs 02/24/23 09/15/23 Rx oxycodone 10 mg tablet 10 mg PO Q6H PRN Pain, Moderate 05/06/23 09/15/23 History albuterol sulfate 90 mcg/actuation 2 puff inhalation Q4-6H PRN 07/21/23 09/15/23 Rx aerosol inhaler shortness of breath or wheezing #8 grams albuterol sulfate 2.5 mg/3 mL 2.5 mg (3 mL) inhalation Q4-6H PRN 09/14/23 09/15/23 Rx (0.083 %) solution for nebulization shortness of breath or wheezing #90 mL azithromycin 250 mg tablet See Rx Instructions PO .COMPLEX #6 09/14/23 09/15/23 Rx tabs dexamethasone 4 mg tablet 8 mg PO DAILY 09/14/23 09/15/23 History ipratropium bromide 0.02 % 2.5 ml inhalation Q6H PRN 09/14/23 09/15/23 Rx solution for inhalation shortness of breath or wheezing #75 mL lorazepam 0.5 mg tablet 0.5 mg PO TID 09/14/23 09/15/23 History ondansetron 8 mg disintegrating 8 mg PO 3XD 09/14/23 09/15/23 History tablet prednisone 10 mg tablets in a dose See Rx Instructions PO .COMPLEX 09/14/23 09/15/23 Rx pack #21 ea prochlorperazine maleate 10 mg 10 mg PO PRN PRN Nausea 09/14/23 09/15/23 History tablet Allergies Allergy/AdvReac Type Severity Reaction Status Date / Time ciprofloxacin AdvReac Intermediate SEVERE Verified 05/17/23 10:58 NAUSEA zolpidem [From Ambien] AdvReac Intermediate Nausea Verified 05/17/23 10:58 Review of Systems Review of Systems Narrative: All else reviewed and otherwise unremarkable except as noted in the history and physical. Exam Vital Signs (past 8 hours): - 09/15/23 05:04 09/15/23 05:04 09/15/23 05:09 Temperature 98 F Pulse Rate 98 H 95 H Respiratory Rate 30 H Blood Pressure 158/77 H 158/77 H Pulse Oximetry 94 94 Oxygen Delivery Method Nasal Cannula Nasal Cannula Oxygen Flow Rate 4 4 Oxygen Delivery Method Nasal Cannula Oxygen Flow Rate 4 Narrative Exam Narrative: NAD, alert and oriented, fluent speech, calm. Cachectic Normocephalic skull, EOMI, anicteric sclera, symmetric pupils. Oropharynx unremarkable, no droop. Neck supple, midline trachea, no adenopathy. Lungs clear, normal rate and effort. He does have diminished breath sounds and prolonged expiratory phase globally. Heart regular, no murmur gallop or rub. Abdomen is soft, non distended and non tender. Extremities are free of edema. Skin is free of rash or lesions. Joints are not swollen or deformed. Judgment appears to be normal. Objective ECG Impression: Possible Left atrial enlargement Imaging Multiple studies:: Radiologist's impression: Chest CTA: No acute pulmonary embolism. Slightly increased nodularity and opacities in the middle lobe and lingula, likely infectious/inflammatory. There is also bronchial wall thickening particularly on the left. Consider future oncologic surveillance imaging. Other oncologic findings including pulmonary nodules and lymphadenopathy are not well assessed on this study. CXR: Emphysematous changes and likely chronic bronchitis. Scarring and superimposed possible infectious opacities and small effusion in the lower lungs. Recommend surveillance oncologic imaging given prior PET findings. My read: Extremely hyperinflated lung iglesias with flat diaphragms no acute infiltrate, no pneumothorax. Labs 09/15/23 05:20 09/15/23 05:20 Labs: Laboratory Results - last 24 hr 09/15/23 05:20 WBC 10.9 RBC 5.31 Hgb 16.5 Hct 49.0 MCV 92.3 MCH 31.0 MCHC 33.6 RDW 14.8 Plt Count 164 Neut % (Auto) 86.7 H Lymph % (Auto) 4.1 L [place] % (Auto) 9.1 Eos % (Auto) 0.0 L Baso % (Auto) 0.1 Neut # (Auto) 9500 H Lymph # (Auto) 400 L [place] # (Auto) 1000 H Eos # (Auto) 0 Baso # (Auto) 0 Sodium 132 L Potassium 4.5 Chloride 100 Carbon Dioxide 29 BUN 27 H Creatinine 0.76 Estimated GFR > 60 BUN/Creatinine Ratio 35.5 H Glucose 172 H Lactate 2.2 H Calcium 8.3 L Troponin I < 0.012 Assessment & Plan Assessment & Plan narrative: 1. Acute hypoxic and hypercarbic respiratory failure, present on admission and active. 2. COPD exacerbation secondary to parainfluenza, present on admission and active. 3. Lung cancer, present on admission and active. 4. Chronic hypoxic respiratory failure, present on admission and active. 5. Atrial fibrillation, present on admission and stable. PLAN: -IV steroids and bronchodilators. -Isolation for Parainfluenza virus, droplet. -wean O2 towards baseline as able. -Zithromax. Full resuscitation Inpatient status, expect 2 nights of hospital necessity. Proxy decision maker: MEHDI: September 16. Time-Based Coding :: 40 min spent with patient and on the chart (including review of chart, obtaining history, exam, reviewing outside data, placing orders, documenting exam and treatment plan, and counseling patient) on 09/14. Quality MIPS - Admit I confirm the patient?s Advance Care Plan is present, Code status is documented, Surrogate decision maker is in patient?s record [If Yes, STOP here]: Yes MIPS - Meds 'Current medications' to include all prescriptions, [id number] products, herbals, cannabis/cannabidiol products, and vitamin/mineral/dietary (nutritional) supplements. I have utilized all available resources to obtain, update, or review the patient?s current medications. [If Yes, STOP here]: Yes
[2023-09-15 07:33] LABS: Lactate 2HR (Lactic Acid Rflx) 2.7 mmol/L (0.7-2.1)
[2023-09-15] MEDS: AMLODIPINE 5 MG TABLET PO (08:21)
[2023-09-15] MEDS: FOLIC ACID 1 MG TABLET 2 MG PO (08:21)
[2023-09-15] MEDS: lisinopriL 20 MG TABLET PO (08:22)
[2023-09-15] MEDS: ASPIRIN EC 81 MG TABLET PO (08:22)
[2023-09-15] MEDS: ENOXAPARIN 40 MG/0.4 ML SYRINGE SUBCUT (08:23)
[2023-09-15] MEDS: PANTOPRAZOLE 40 MG VIAL IV (08:23)
[2023-09-15] MEDS: methylPREDNISolone 125 MG/2 ML VIAL 60 MG IV ×2 (08:45→20:57)
[2023-09-15] MEDS: guaiFENesin ER 600 MG TAB PO ×2 (08:45→20:58)
--- NOTE | 2023-09-15 09:12 | PC.NURSE ---
Pt at bedside and took pt off high flow o2. Placed pt on 6L NC and pt sat remains at 98%. Pt a&ox4 and denies any pain. Pt a&ox4.
--- NOTE | 2023-09-15 10:01 | PC.NURSE ---
Pt stood at bedside to use urinal. States that he is feeling a little bit SOB but RR remain 25-30. Pt states that this is fairly normal for him and his o2 sats are never higher than 92% at home. States that he would like to sit at the edge of the bed for a while. A&Ox4.
[2023-09-15 10:30] LABS: Allen Test for ABG Passed? Positive; Base Excess ABG -2.5 mmol/L (-2-3); Blood Gas Collection Site Right Radial; Delivery System Cannula; HCO3 ABG 27 mmol/L (23-27); Oxygen Saturation ABG 95 % (95-100); PCO2 ABG 62.2 mmHg (35-45); PO2 ABG 87 mmHg (80-100); TCO2 ABG 27 mmol/L (23-27); pH ABG 7.24 (7.35-7.45)
--- NOTE | 2023-09-15 13:01 | PC.NURSE ---
Patient arrived to room 221 approximately 1145 this a.m. VSS, afebrile on 6LNC 02 sats 96-98%. He feels SOB with any activity, and he is uncomfortable with HOB <60 degrees due to discomfort with breathing. Audible wheezes auscultated throughout. He denies pain currently. Hospitalist at bedside admitting patient. He is able to tolerate meals today. Continuous monitoring. Admission assessment completed, Call light in reach, patient given urinal and 02 tubing extension to transfer to , educated on IS& SCD's, continuous pulse ox, droplet precautions, and frequent rounding.
[2023-09-15] MEDS: OXYCODONE IR 10 MG TABLET PO (17:24)
[2023-09-16] VITALS (9 sets, daily range): BP systolic 110–138; BP diastolic 64–78; PULSE 66–82; RESP 14–22; TEMP 36.3–36.6; O2SAT 93–97
[2023-09-16 05:21] LABS: Add Manual Diff / Slide Review NO; Basophils Absolute Auto 0 /uL (0-100); Eosinophils Absolute Auto 0 /uL (0-450); Hematocrit 44.4 % (41-53); Hemoglobin 14.8 g/dL (13.5-17.5); Lymphocytes Absolute Auto 200 /uL (1100-4500); Lymphocytes Percent Auto 1.6 % (25-40); Mean Corpuscular HGB Conc 33.2 % (30-36); Mean Corpuscular Hemoglobin 30.6 PG (26-34); Mean Corpuscular Volume 92.2 fL (80-100); Monocytes Absolute Auto 700 /uL (0-900); Monocytes Percent Auto 5.9 % (3-14); Neutrophils Absolute Auto 10900 /uL (1500-7000); Neutrophils Percent Auto 92.5 % (50-75); Platelet Count 145 X10^3/uL (150-400); Red Blood Cell Count 4.82 X10^6/uL (4.5-5.9); Red Cell Distribution Width 14.2 % (11.6-14.8); White Blood Cell Count 11.8 X10^3/uL (4.5-11.0)
[2023-09-16 05:58] LABS: BUN Creatinine Ratio 39.2 (6-22); Blood Urea Nitrogen 29 mg/dL (9-20); Calcium 8.3 mg/dL (8.4-10.2); Carbon Dioxide 29 mmol/L (22-32); Chloride 101 mmol/L (98-107); Estimated Glomerular Filt Rate > 60 mL/min (>60); Glucose 149 mg/dL (80-110); HEMOLYSIS < 15 (0-50); Potassium 4.9 mmol/L (3.4-5.1); Sodium 132 mmol/L (137-145)
[2023-09-16] MEDS: FOLIC ACID 1 MG TABLET 2 MG PO (08:57)
[2023-09-16] MEDS: lisinopriL 20 MG TABLET PO (08:57)
[2023-09-16] MEDS: guaiFENesin ER 600 MG TAB PO ×2 (08:57→20:42)
[2023-09-16] MEDS: ENOXAPARIN 40 MG/0.4 ML SYRINGE SUBCUT (08:57)
[2023-09-16] MEDS: AMLODIPINE 5 MG TABLET PO (08:58)
[2023-09-16] MEDS: AZITHROMYCIN 250 MG TABLET PO (08:58)
[2023-09-16] MEDS: ASPIRIN EC 81 MG TABLET PO (08:58)
[2023-09-16] MEDS: PANTOPRAZOLE 40 MG VIAL IV (09:06)
[2023-09-16] MEDS: methylPREDNISolone 125 MG/2 ML VIAL 60 MG IV ×2 (09:06→20:42)
[2023-09-16] MEDS: ALBUTEROL/IPRATROPIUM 3 ML AMPUL INH ×3 (09:34→20:57)
--- NOTE | 2023-09-16 10:53 | PM.PN.1 ---
Subjective Subjective Date Patient Seen: 09/16/23 Time Patient Seen: 10:30 Interval history: Admit note: He has been ill for several days with progressive dyspnea. He was diagnosed with parainfluenza by PCR in the ED. He states that a week or 2 ago it was quite ambulatory and functional and much better. He was never been on a ventilator before in his unsure how he feels about this. He was currently being treated for recurrence of his lung cancer. He was status post 1 session with chemotherapy I [facility] with Dr. Koenig. He denies fevers or chills, no chest pain or palpitations. No leg edema. No hemoptysis. Initially in the ED, he was on high-flow oxygen but has not improved significantly. He was pCO2 was 62.2. He was able to wean off from high-flow and transfer to floor of feeling much better. He is able to speak in full sentences and is on oxygen nasal cannula. Interim history: The patient reports he continues to be short of breath with minimal exertion. No chest pain or hemoptysis, fevers, chills or palpitations. He has been prescribed oxygen at home but not been using it frequently. He notes he recently restarted chemotherapy after recurrence of lung cancer. Exam Vital Signs (past 8 hours): - 09/16/23 04:00 09/16/23 08:00 09/16/23 09:34 Temperature 97.8 F 97.3 F L Pulse Rate 66 69 82 Respiratory Rate 18 22 16 Blood Pressure 120/72 127/74 Pulse Oximetry 95 97 94 Oxygen Delivery Method Nasal Cannula Oxygen Flow Rate 3.5 3 3.5 Fraction of Inspired Oxygen 40 SaO2/FiO2 Ratio 242 Oxygen Delivery Method Nasal Cannula Oxygen Flow Rate 3.5 Narrative Exam Narrative: GENERAL: This is a thin, fatigued-appearing male patient, with mildly labored breathing with minimal exertion in bed. HEAD: Atraumatic. Normocephalic. No temporal or scalp tenderness. EYES: Pupils equal round and reactive. Extraocular motions intact. No scleral icterus. No injection or drainage. ENT: Mucous membranes pink and moist. NECK: Trachea midline. No JVD, bruits or lymphadenopathy. Supple, nontender, no meningeal signs. CARDIOVASCULAR: Regular rate and rhythm without murmurs, gallops, or rubs. RESPIRATORY: Diffuse wheezing on expiration, mild accessory muscle use. GASTROINTESTINAL: Abdomen soft, non-tender, nondistended. EXTREMITIES: No clubbing, cyanosis, or edema. no calf swelling or tenderness. BACK: Nontender without deformity or crepitance. No flank tenderness. NEUROLOGIC: Alert, oriented, speech fluent, full upper and lower motor strength, no focal deficits evident. DERMATOLOGIC: No rashes or skin lesions. Objective Imaging : Radiologist's impression: Chest CTA: No acute pulmonary embolism. Slightly increased nodularity and opacities in the middle lobe and lingula, likely infectious/inflammatory. There is also bronchial wall thickening particularly on the left. Consider future oncologic surveillance imaging. Other oncologic findings including pulmonary nodules and lymphadenopathy are not well assessed on this study. CXR: Emphysematous changes and likely chronic bronchitis. Scarring and superimposed possible infectious opacities and small effusion in the lower lungs. Recommend surveillance oncologic imaging given prior PET findings. Labs 09/16/23 04:38 09/16/23 04:38 Labs: Laboratory Results - last 24 hr 09/16/23 04:38 WBC 11.8 H RBC 4.82 Hgb 14.8 Hct 44.4 MCV 92.2 MCH 30.6 MCHC 33.2 RDW 14.2 Plt Count 145 L Neut % (Auto) 92.5 H Lymph % (Auto) 1.6 L [place] % (Auto) 5.9 Eos % (Auto) 0.0 L Baso % (Auto) 0.0 Neut # (Auto) 37138 H Lymph # (Auto) 200 L [place] # (Auto) 700 Eos # (Auto) 0 Baso # (Auto) 0 Sodium 132 L Potassium 4.9 Chloride 101 Carbon Dioxide 29 BUN 29 H Creatinine 0.74 Estimated GFR > 60 BUN/Creatinine Ratio 39.2 H Glucose 149 H Calcium 8.3 L PFSH Medical History GERD (gastroesophageal reflux disease) Atrial fibrillation (04/2014) Lung cancer (04/2014) Back pain Frequent UTI Surgical History History of esophagogastroduodenoscopy (EGD) (10/20/16) Status post colonoscopy (10/20/16) Status post hemorrhoidectomy (07/02/08) Status post biopsy (04/2014) Social History household members: spouse Smoking Status: Former smoker Tobacco: How many years used: 50 alcohol intake: former substance use type: does not use Assessment & Plan Assessment & Plan narrative: 1. Acute hypoxic and hypercarbic respiratory failure, present on admission and active. Improving gradually. 2. COPD exacerbation secondary to parainfluenza, present on admission and active. 3. Lung cancer, present on admission and active. 4. Chronic hypoxic respiratory failure, present on admission and active. 5. Atrial fibrillation, present on admission and stable. 6. Code status: Full code. He states he would accept intubation and mechanical ventilation for respiratory failure . PLAN: -IV steroids and bronchodilators. -Isolation for Parainfluenza virus, droplet. -wean O2 towards baseline as able. -Zithromax. Full resuscitation Inpatient status, expect 2 nights of hospital necessity. Proxy decision maker: MEHDI: September 16. Time-Based Coding :: [TOTAL MINUTES] spent with patient and on the chart (including review of chart, obtaining history, exam, reviewing outside data, placing orders, documenting exam and treatment plan, and counseling patient) on [DATE]. PROFEE Charge codes Subsequent inpatient/observation care: 45732
--- NOTE | 2023-09-16 13:33 | DIET.CONS ---
Dietary Consultation Note Admission Date: 09/15/2023 06:17 Assessment: 68 y M presented with SOB. PMH of lung cancer. Recent restart in chemotherapy after recurrence of lung cancer. Nutrition screened for low MNA. Met with pt at bedside, who reports reduced intakes for 3 years with weight loss. Notes nausea during morning and increased SOB have resulted in further weight loss and difficulty consuming adequate po intake within last 3 months. Diet recall: B-Chocolate milk L-skips or small snack (jerky, crackers, or milk) D-meal at home Nutrition focused physical exam: -Moderate muscle loss temporalis, deltoid, trapezius, pectoralis, interosseous -Moderate subcutaneous fat loss orbital and buccal fat pads Ht: 177.8 cm Wt: 56.24 kg BMI: 17.8 UBW: 62.312 kg on 05/17/23 (-10% weight loss in 4 months, severe) Last BM: 09/13/23 (09/15/23 11:33) MNA: 10 Danis Score: 19 Diet: 09/15/23 Breakfast General (Regular) Diet Diet Modifications: Food Texture: Level 7 - Regular Liquid Consistency: Level 0 - Thin Nutrition Percent Meal Consumed 100% 09/16/23 09:00 Percent Meal Consumed 50% 09/15/23 18:00 Percent Meal Consumed 75% 09/15/23 09:21 Labs: RBC 4.82 X10^6/uL (4.5-5.9) 09/16/23 04:38 Hgb 14.8 g/dL (13.5-17.5) 09/16/23 04:38 Hct 44.4 % (41-53) 09/16/23 04:38 Creatinine 0.74 mg/dL (0.66-1.25) 09/16/23 04:38 Lactate 2.7 mmol/L (0.7-2.1) H 09/15/23 07:14 Nutrition Diagnosis: Severe chronic Protein Calorie Malnutrition r/t inadequate protein-energy intake with increased protein-energy needs in setting of lung cancer with ongoing chemotherapy as evidenced by <75% of estimated energy needs for >3 months (severe), nausea and increased SOB, 10% weight loss within 4 months (severe), moderate muscle mass loss (temporalis, deltoid, trapezius, pectoralis, interosseous), moderate subcutaneous fat loss (orbital and buccal), and BMI underweight for age (17.8). Interventions: 1. ONS/protein supplement TID 2. Provided and reviewed handout on high kcal/high protein nutrition, discussed ways to increase protein/kcals in tolerated foods EER: [id number] kcals (35-37 kcals/kg per BMI) 85-95 g protein (1.5-1.7 g/kg per PCM) Monitoring/Evaluations: po intakes, supplement tolerance Electronically Signed by: Mi Nieves 09/16/23 13:33 Clinical Dietitian [address] [address]
--- NOTE | 2023-09-16 15:48 | CM.DANOTE ---
DCP Assessment Note: Pt is a 68yo male, resident of [place], is admitted for COPD exacerbation and parainfluenza. Pt lives in a house with his , Rae. Pt's Primary Care Provider is Dr. Lala Mccartney DO and insurance is [facility] and Medicare Part A only. Reviewed chart and team rounds for pt's medical status and initial discharge needs. DCP met w/patient at bedside; introduced self and role. Patient was found in bed, alert and oriented, cooperative with assessment. Pt confirmed living situation and good support in , Rae. Pt expressed preference in returning home, agreeable to hospitalist recommendations of one or two more days for respiratory therapy and antibiotics. Pt confirmed he uses oxygen at home at baseline and has been increasing use since second cancer diagnosis in December 2022. Pt denied any other discharge needs at this time. Plan: Anticipating discharge home with spouse when medically stable. CM team will follow closely for coordination of discharge plans. ERMELINDA Walker Discharge Planning/Care Management CM Discharge Assessment Start: 09/16/23 15:46 Freq: Status: Active Protocol: Document 09/16/23 15:46 MW (Rec: 09/16/23 15:48 MW [id number]) Discharge Planning Assessment Assigned Hat Former TIFFANIE Todd DPOA/Assigned Designee Name Desean Mcbride Contact Information [phone] Advance Directives? Yes: polst/ per patient Do not intubate Advance Directives on File No: spouse to bring in for copy History Provided By Patient Expected Length of Stay 1 Prior Living Arrangements House Household Members spouse Type of transporation used prior to Drives own vehicle admit Independent with ADL's Yes Is patient alert and oriented? Yes Caregiver for Another No Community Services used prior to Oxygen Therapy admission: DME Already Rented / Owned Oxygen Discharge Plan Home Community Services Oxygen Therapy Transportation Arrangement Spouse, Rae Referrals Initiated None needed Whiteboard Updated in Patient Room with Yes name and ext. # of Hat Former Comment [phone] Please Provide Date Initial DC 09/16/23 Assessment Was Performed Next Review Type Continued Stay Review
[2023-09-16] MEDS: SODIUM CHLORIDE 0.9% FLUSH 10 ML IV (20:42)
[2023-09-16] MEDS: OXYCODONE IR 10 MG TABLET PO (23:09)
[2023-09-17] VITALS (10 sets, daily range): BP systolic 126–140; BP diastolic 75–84; PULSE 66–84; RESP 14–22; TEMP 36.1–37.1; O2SAT 85–97
--- NOTE | 2023-09-17 08:20 | P.PN_ITS ---
Subjective Subjective Date Patient Seen: 09/17/23 Time Patient Seen: 07:55 Interval history: Summary: He has been ill for several days with progressive dyspnea. He was diagnosed with parainfluenza by PCR in the ED. He states that a week or 2 ago it was quite ambulatory and functional and much better. He was never been on a ventilator before in his unsure how he feels about this. He was currently being treated for recurrence of his lung cancer. He was status post 1 session with chemotherapy I [facility] with Dr. Koenig. He denies fevers or chills, no chest pain or palpitations. No leg edema. No hemoptysis. Initially in the ED, he was on high-flow oxygen but has not improved significantly. He was pCO2 was 62.2. He was able to wean off from high-flow and transfer to floor of feeling much better. He is able to speak in full sentences and is on oxygen nasal cannula. Interim history: The patient reports he feels much better today but has not yet gotten up to walk. He remains on 3.5 L of nasal cannula oxygen to maintain oxygen saturations 88-92%. He still remains dyspneic with minimal exertion Exam Vital Signs (past 8 hours): - 09/17/23 04:37 Temperature 97.0 F L Pulse Rate 70 Respiratory Rate 18 Blood Pressure 138/80 Pulse Oximetry 97 Oxygen Flow Rate 3 Fraction of Inspired Oxygen 32 SaO2/FiO2 Ratio 290 Oxygen Delivery Method Nasal Cannula Oxygen Flow Rate 3 Narrative Exam Narrative: GENERAL: This is a thin, fatigued-appearing male patient, with mildly labored breathing but improved. EYES: Pupils equal round and reactive. Extraocular motions intact. No scleral icterus. No injection or drainage. ENT: Mucous membranes pink and moist. NECK: Supple, nontender, no meningeal signs. CARDIOVASCULAR: Regular rate and rhythm without murmurs, gallops, or rubs. RESPIRATORY: Minimal wheezing on forced expiration, no accessory muscle use. GASTROINTESTINAL: Abdomen soft, non-tender, nondistended. EXTREMITIES: No clubbing, cyanosis, or edema. no calf swelling or tenderness. BACK: Nontender without deformity or crepitance. No flank tenderness. NEUROLOGIC: Alert, oriented, speech fluent, full upper and lower motor strength, no focal deficits evident. DERMATOLOGIC: No rashes or skin lesions. Objective Labs 09/16/23 04:38 08/09/24 04:38 [facility] Medical History GERD (gastroesophageal reflux disease) Atrial fibrillation (04/2014) Lung cancer (04/2014) Back pain Frequent UTI Surgical History History of esophagogastroduodenoscopy (EGD) (10/20/16) Status post colonoscopy (10/20/16) Status post hemorrhoidectomy (07/02/08) Status post biopsy (04/2014) Social History household members: spouse Smoking Status: Former smoker Tobacco: How many years used: 50 alcohol intake: former substance use type: does not use Assessment & Plan Assessment & Plan narrative: 1. Acute on chronic hypoxic and hypercarbic respiratory failure, present on admission and active. Improving gradually. Currently at baseline 3.5 L nasal cannula oxygen. 2. COPD exacerbation secondary to parainfluenza, present on admission and active. He remains very short of breath with minimal exertion. 3. Lung cancer, present on admission and active. 4. Chronic hypoxic respiratory failure, present on admission and active. Stable at baseline now. 5. Atrial fibrillation, present on admission and stable. 6. Code status: Full code. He states he would accept intubation and mechanical ventilation for respiratory failure . PLAN: -continue IV steroids and bronchodilators. -Isolation for Parainfluenza virus, droplet. -mobilized today and monitor. -Zithromax. Full resuscitation Inpatient status, expect 2 nights of hospital necessity, likely discharge home on oral steroid and oxygen therapy, off antibiotics tomorrow. Proxy decision maker: MEHDI: September 17. Time-Based Coding :: [TOTAL MINUTES] spent with patient and on the chart (including review of chart, obtaining history, exam, reviewing outside data, placing orders, documenting exam and treatment plan, and counseling patient) on [DATE]. PROFEE Charge codes Subsequent inpatient/observation care: 55596
[2023-09-17] MEDS: AMLODIPINE 5 MG TABLET PO (08:43)
[2023-09-17] MEDS: AZITHROMYCIN 250 MG TABLET PO (08:45)
[2023-09-17] MEDS: guaiFENesin ER 600 MG TAB PO ×2 (08:46→21:04)
[2023-09-17] MEDS: lisinopriL 20 MG TABLET PO (08:46)
[2023-09-17] MEDS: ASPIRIN EC 81 MG TABLET PO (08:46)
[2023-09-17] MEDS: FOLIC ACID 1 MG TABLET 2 MG PO (08:48)
[2023-09-17] MEDS: ENOXAPARIN 40 MG/0.4 ML SYRINGE SUBCUT (08:48)
[2023-09-17] MEDS: methylPREDNISolone 125 MG/2 ML VIAL 60 MG IV ×2 (08:49→21:05)
[2023-09-17] MEDS: SODIUM CHLORIDE 0.9% FLUSH 10 ML IV ×2 (08:49→21:05)
[2023-09-17] MEDS: ALBUTEROL/IPRATROPIUM 3 ML AMPUL INH ×3 (09:08→19:55)
[2023-09-17] MEDS: PANTOPRAZOLE DR 40 MG TABLET PO (09:09)
--- NOTE | 2023-09-17 13:47 | CM.DPC ---
DCP Cont. Reviewed EMR and team rounds for status updates. Per Hospitalist, pt will need 1-more day before being medically cleared for home d/c. Anticipating d/c for Tuesday,
[2023-09-17] MEDS: OXYCODONE IR 10 MG TABLET PO (21:04)
[2023-09-18 00:58] VITALS: BP 138/79; PULSE 69; RESP 19; TEMP 36.3; O2SAT 97
[2023-09-18 05:12] VITALS: BP 145/87; PULSE 80; RESP 17; TEMP 36.3; O2SAT 97
[2023-09-18] MEDS: PANTOPRAZOLE DR 40 MG TABLET PO (06:18)
[2023-09-18 07:52] VITALS: BP 146/87; PULSE 69; RESP 19; TEMP 36.7; O2SAT 97
--- NOTE | 2023-09-18 08:26 | P.DS_ITS ---
History of Present Illness History of Present Illness Date Patient Seen: 09/18/23 Time Patient Seen: 07:37 Date of Onset of Symptoms: 09/15/23 Chief complaint: sob Narrative: 68 y/o with PMH of lung cancer, undergoing chemotherapy, 4 L of oxygen-dependent COPD, HTN and frequent non-compliance with oxygen, who came to the ER this morning extremely short of breath. He was seen yesterday with similar dyspnea, had nebulized albuterol, solumedrol, diagnosed with parainfluenza, offered to stay but decided to go home. CXR w/o infiltrates, w/o leukocytosis, afebrile. Discharge Providers Provider Date of admission: 09/15/23 06:17 Discharge Date: 09/18/23 Primary care physician: Lala Mccartney DO Discharge provider: Vijay Finch MD Summary Hospital Course Discharge Diagnosis: 1. Acute on chronic hypoxic and hypercarbic respiratory failure, present on admission and active. Improving gradually. Currently at baseline 3.5 L nasal cannula oxygen. 2. COPD exacerbation secondary to parainfluenza, present on admission and active. He remains very short of breath with minimal exertion. 3. Lung cancer, present on admission and active. 4. Chronic hypoxic respiratory failure, present on admission and active. Stable at baseline now. 5. Atrial fibrillation, present on admission and stable. Hospital Course: The patient was admitted and administered IV steroids, bronchodilators, and oxygen. He was placed on isolation precautions for parainfluenza viral infection. Azithromycin was continued during the hospitalization and discontinued at discharge. He was feeling significantly better with return to baseline status on his usual 3.5 L of oxygen by nasal cannula. He was interested in discharge home. No other issues arose Status at Discharge Cognitive/behavioral status at discharge: oriented Functional status at discharge: independent ambulation Overall status at discharge: patient is back to baseline Time Spent with Patient Time spent: Less than 30 minutes Exam Vital Signs (past 8 hours): - 09/18/23 00:58 09/18/23 05:12 09/18/23 07:52 Temperature 97.4 F L 97.4 F L 98.1 F Pulse Rate 69 80 69 Respiratory Rate 19 17 19 Blood Pressure 138/79 145/87 H 146/87 H Pulse Oximetry 97 97 97 Oxygen Flow Rate 3.5 3.5 3.5 Fraction of Inspired Oxygen 32 SaO2/FiO2 Ratio 290 Oxygen Delivery Method Nasal Cannula Oxygen Flow Rate 3.5 Narrative Exam Narrative: GENERAL: This is a thin, fatigued-appearing male patient, with mildly labored breathing but improved. EYES: Pupils equal round and reactive. Extraocular motions intact. No scleral icterus. No injection or drainage. ENT: Mucous membranes pink and moist. NECK: Supple, nontender, no meningeal signs. CARDIOVASCULAR: Regular rate and rhythm without murmurs, gallops, or rubs. RESPIRATORY: Faint wheezing on forced expiration, no accessory muscle use. GASTROINTESTINAL: Abdomen soft, non-tender, nondistended. EXTREMITIES: No clubbing, cyanosis, or edema. no calf swelling or tenderness. NEUROLOGIC: Alert, oriented, speech fluent, full upper and lower motor strength, no focal deficits evident. DERMATOLOGIC: No rashes or skin lesions. Objective Labs 09/16/23 04:38 09/16/23 04:38 [facility] Medical History GERD (gastroesophageal reflux disease) Atrial fibrillation (04/2014) Lung cancer (04/2014) Back pain Frequent UTI Surgical History History of esophagogastroduodenoscopy (EGD) (10/20/16) Status post colonoscopy (10/20/16) Status post hemorrhoidectomy (07/02/08) Status post biopsy (04/2014) Social History household members: spouse Smoking Status: Former smoker Tobacco: How many years used: 50 alcohol intake: former substance use type: does not use Discharge Plan Discharge Plan Patient Disposition: Home Transfer to: [facility] Provider Discharge Comment: Followup with Dr. Lala Mccartney 1 week Discharge orders & Medications Prescriptions: New prednisone 10 mg tablet See Rx Instructions .ROUTE .COMPLEX Qty: 32 0RF Rx Instructions: 40 mg daily for 3 days, then 30 mg daily for 3 days, then 20 mg daily for 3 days then 10 mg for 3 days then as directed Continued oxycodone 10 mg tablet 10 mg PO Q6H PRN (Reason: Pain, Moderate) amlodipine 5 mg tablet 5 mg PO DAILY Qty: 90 2RF lisinopril 20 mg tablet 20 mg PO DAILY Qty: 90 2RF albuterol sulfate 90 mcg/actuation HFA aerosol inhaler 2 puff INHALATION Q4-6H PRN (Reason: shortness of breath or wheezing) Qty: 8 1RF aspirin 81 mg Tablet,Delayed Release (Dr/Ec) 81 mg PO DAILY folic acid 1 mg Tablet 2 mg PO DAILY Rx Instructions: Take 1 tablet (1 mg total) by mouth daily initiate one week prior to prmetrexed chemotherapy and continue for 3 weeks after last dose of premtrexed. famotidine 20 mg Tablet 20 mg PO BEDTIME Qty: 90 0RF Rx Instructions: 1 tab at bedtime to protect stomach while taking steroids ondansetron 8 mg tablet,disintegrating 8 mg PO 3XD prochlorperazine maleate 10 mg tablet 10 mg PO PRN PRN (Reason: Nausea) lorazepam 0.5 mg tablet 0.5 mg PO TID Rx Instructions: 1 tab by mouth 3 times daily for acute anxiety. Not indicated for chronic use. albuterol sulfate 2.5 mg /3 mL (0.083 %) solution for nebulization 2.5 mg inhalation Q4-6H PRN (Reason: shortness of breath or wheezing) Qty: 90 0RF ipratropium bromide 0.02 % solution 2.5 ml inhalation Q6H PRN (Reason: shortness of breath or wheezing) Qty: 75 0RF Discontinued prednisone 5 mg Tablet See Rx Instructions .ROUTE .COMPLEX Qty: 100 0RF Rx Instructions: Take 5 mg (1 pill) by mouth in the morning, and take 2.5 mg (half pill) by mouth in the afternnon. dexamethasone 4 mg tablet 8 mg PO DAILY Rx Instructions: Take 2 tablets (8mg total) by mouth 2 (Two) times a day take for three consecutive days starting one day proir to chemotherapy. azithromycin 250 mg tablet See Rx Instructions .ROUTE .COMPLEX Qty: 6 0RF Rx Instructions: For 250 mg dose pack: take 500 mg today (day 1), then 250 mg for 4 days (days 2-5) prednisone 10 mg tablets,dose pack See Rx Instructions .ROUTE .COMPLEX Qty: 21 0RF Rx Instructions: orally per package directions Follow up/Referrals: Lala Mccartney DO [Primary Care Provider] - Visit Report/Discharge Packet Stand Alone Forms: Patient Portal/API, Stroke Signs & Symptoms Discharge Data Primary Care Provider: Lala Mccartney
--- NOTE | 2023-09-18 08:38 | CM.DPC ---
DCP Cont. Reviewed EMR and team rounds for status updates. Pt has been medically cleared for home d/c, his will be transporting him home later this morning. No further DCP needs identified at this time.
[2023-09-18 09:12] VITALS: PULSE 67; RESP 16; O2SAT 95
[2023-09-18] MEDS: ALBUTEROL/IPRATROPIUM 3 ML AMPUL INH (09:12)
[2023-09-18 09:37] VITALS: BP 146/87; PULSE 67
[2023-09-18] MEDS: AZITHROMYCIN 250 MG TABLET PO (09:37)
[2023-09-18] MEDS: lisinopriL 20 MG TABLET PO (09:37)
[2023-09-18] MEDS: FOLIC ACID 1 MG TABLET 2 MG PO (09:37)
[2023-09-18] MEDS: guaiFENesin ER 600 MG TAB PO (09:38)
[2023-09-18] MEDS: methylPREDNISolone 125 MG/2 ML VIAL 60 MG IV (09:38)
[2023-09-18] MEDS: ASPIRIN EC 81 MG TABLET PO (09:38)
[2023-09-18] MEDS: AMLODIPINE 5 MG TABLET PO (09:38)
[2023-09-18] MEDS: ENOXAPARIN 40 MG/0.4 ML SYRINGE SUBCUT (09:39)
[2023-09-18] MEDS: SODIUM CHLORIDE 0.9% FLUSH 10 ML IV (09:40)
--- NOTE | 2023-09-18 13:37 | PC.NURSE ---
Patient is A&OX4, VSS, on 3.5 L NC. He denies pain. He reports he feel much better although still with minimal activity tolerance. MD at bedside evaluating the patient and clears him for discharge home with home 02, nebs and prednisone. He and his have multiple questions answered and acknowledge understanding of discharge medications and plan to follow up with PCP in x1 week. RN escorts pt via w/ch with home portable 02 tank and belongings to private vehicle for discharge home today with at 1140 a.m.
== END 2023-09-18 11:20 | disposition home or self-care (01) | DRG 190 ==
LOC: ED 06:16 → AC 06:19
PROVIDERS: Admitting Provider Internal Medicine; Emergency Provider Emergency Medicine; PCP Family Medicine; Referring Provider Emergency Medicine; Visit Provider Internal Medicine
DX: J44.1 Chronic obstructive pulmonary disease with (acute) exacerbation (principal); J96.21 Acute and chronic respiratory failure with hypoxia; J96.22 Acute and chronic respiratory failure with hypercapnia; C34.32 Malignant neoplasm of lower lobe, left bronchus or lung; B34.8 Other viral infections of unspecified site; I10 Essential (primary) hypertension; M54.50 Low back pain, unspecified; G89.29 Other chronic pain; F41.9 Anxiety disorder, unspecified; K21.9 Gastro-esophageal reflux disease without esophagitis; I48.91 Unspecified atrial fibrillation; Z87.891 Personal history of nicotine dependence; Z99.81 Dependence on supplemental oxygen
CPT/HCPCS: 36415; 36600; 71045; 71275; 80048; 80053; 82550; 82805; 83605; 83880; 84484; 85025; 85610; 87040; 87633; 93005; 93010; 94640; 94762; 96365; 96375; 99285; 99291; J0696; J1650; J2470; J2919; J3475; Q9967

== ENCOUNTER → 2023-11-28 16:03 | Outpatient (CLI) | payer OTHER, SELFPAY ==
[2023-09-15 11:33] VITALS: BMI 17.8
--- NOTE | 2023-11-28 16:04 | DI.RAD.S_ITS ---
PROCEDURE: XR LUMBAR SPINE 3V INDICATIONS: acute on chronic low back pain TECHNIQUE: 3 views of the lumbar spine were acquired. COMPARISON: None. FINDINGS: Moderate to severe degenerative changes of the lumbar spine with disc space narrowing and osteophytes, facet osseous hypertrophic changes most notably at L4-5 and L5-S1. Mild straightening of the normal lumbar lordosis some of which may be artifact from positioning or related to muscle spasm or degenerative changes. Moderate vascular calcifications of the aorta and iliac vessels partially imaged. Bones: 5 [id number] vertebrae are present. There is normal bony alignment. No radiographic evidence of vertebral body compression fractures. Pattern of constipation in the abdomen. IMPRESSION: Moderate to severe degenerative changes. If symptoms persist or worsen, or there is high clinical suspicion of lumbar abnormality, MR L-spine could be performed. Dictated by: Mikey Dorman M.D. on 11/30/2023 at 19:55 Approved by: Mikey Dorman M.D. on 11/30/2023 at 19:57
== END ==
PROVIDERS: PCP Family Medicine; Referring Provider Family Medicine; Visit Provider Family Medicine
DX: M47.26 Other spondylosis with radiculopathy, lumbar region (principal); M47.27 Other spondylosis with radiculopathy, lumbosacral region; G89.29 Other chronic pain
CPT/HCPCS: 72100

== ENCOUNTER 2024-02-29 09:45 | Outpatient (RCR) | payer OTHER, SELFPAY ==
[2024-01-31 10:43] VITALS: BMI 17.8
--- NOTE | 2024-02-21 13:37 | PT.OIE ---
Current Diagnoses Intervertebral disc disorders with radiculopathy, lumbar region (02/21/24) Past Medical History (Last Updated 01/17/24 @ 11:57 by Bill Mijares MD) Atrial fibrillation (04/2014) Back pain Chronic right hip pain Esophagitis (10/28/16) Frequent UTI History of colon cancer in adulthood (~2017) Lower back pain Lumbar spinal stenosis Lung cancer (04/2014) Pain of right lower extremity Past Surgical History (Last Reviewed 11/10/23 @ 11:09 by Isrrael Pal MD) History of esophagogastroduodenoscopy (EGD) (10/20/16) Status post biopsy (04/2014) Status post colonoscopy (10/20/16) Status post hemorrhoidectomy (07/02/08) Visit Care Team Role Provider Type Bill Mijares MD Family Provider Physician Primary Care Provider Specialty: Family Practice Address: [address] [place] [address] Email: [email or web address] Tomasz Cavanaugh MD Attending Provider Physician Referring Provider Specialty: Orthopedic Surgery Address: [address] [place] [address], [facility], [facility] Email: Physical Therapy Initial Evaluation PT-OP-A Visit Information Start: 02/21/24 15:20 Freq: Status: Active Protocol: Document 02/21/24 15:21 [facility] (Rec: 02/21/24 17:15 [facility] [id number]) Out-Patient Physical Therapy Visit Information Visit Information Visit Type Initial Evaluation Visit Start Time 15:21 Visit Stop Time 16:15 Visit Number 1 Precautions Precautions Lung cancer. Uses oxygen at night. PT-OP-B Current Condition Start: 02/21/24 15:20 Freq: Status: Active Protocol: Document 02/21/24 15:21 [facility] (Rec: 02/21/24 17:15 [facility] [id number]) Current Condition History of Current Condition Onset Date September 2023 History of Current Condition Gradual worsening of LBP and LE pain thinks due to being on hands and knees working on a mower, then went downhill. Leg pain is the worst, increases with trying to straighten up, coughing, sneezing. Has been using wheelchair now for out of house mobility, only 10 ft at a time at home, can't straighten up. Referred to PT , next step injections, last option surgery. Unable to lay down. Minimal sleep. Medications not helpful. Has history numbness and tingling in legs due to cancer, not sure if worse with back pain. History mild LBP. Legs swollen since last fall, check for DVT neg. Has compression socks but hasn't been wearing . Currently receiving chemo 1x every 3 weeks. Hasn't used ice or heat on back or leg Prior Treatments and Tests MRI: L45 disc herniation, stenosis per patient's ( MRI done at [facility], results not available) Future Testing and Treatments Planned no other tests or treatments planned except as above. Treatment Goals Patient/Caregiver Goals Decrease his pain, be able to stand and walk upright. PT-OP-C Subjective Start: 02/21/24 15:20 Freq: Status: Active Protocol: Document 02/21/24 15:21 [facility] (Rec: 02/22/24 13:32 [facility] [id number]) Patient Questionnaires Oswestry Low Back Index Oswestry Score 76 OP-PT Pain Assessment Pain Assessment Grid Paper Pain Assessment Grid Completed Yes Location left buttock and lower leg Intensity 10 Description Chronic,Radiating,Sharp, Shooting,Stabbing,Throbbing Pain Aggravating Factors Position,Activity,Standing, Walking,Coughing,Cough and Deep Breathe Pain Alleviating Factors None PT-OP-G Mobility & Gait Start: 02/21/24 15:20 Freq: Status: Active Protocol: Document 02/21/24 15:21 [facility] (Rec: 02/22/24 13:32 [facility] [id number]) OP Gait Assessment Gait Gait Assistance Required: Independent Distance (Feet) 5 Assistive Devices Assistive Device None Gait Deviations General Gait Pattern Flexed Trunk Factors Limiting Gait Function Factors Limiting Gait Function Pain Comments Gait Comments severely bent forward at trunk PT-OP-H Neuro Start: 02/21/24 15:20 Freq: Status: Active Protocol: Document 02/21/24 15:21 [facility] (Rec: 02/22/24 13:32 [facility] [id number]) Sensation Evaluation Gross Sensation Gross Sensation Left UE Impaired Sensation Description Pain PT-OP-J Posture/Palpation/Skin Start: 02/21/24 15:20 Freq: Status: Active Protocol: Document 02/21/24 15:21 [facility] (Rec: 02/21/24 17:15 [facility] [id number]) Posture Evaluation Position Standing L-Spine Posture Flattened Comments Posture Comments standing with forward bend approx 90 degrees, unable to straighten further than 40 degrees from upright. Increased thoracic kyphosis and flattened lumbar spine. Patient sits in w/c with posterior pelvic tilt Palpation Assessment Location lumbar paraspinals Palpation Findings Soft Tissue Tightness,Muscle Guarding right piriformis Palpation Findings Tenderness Skin Assessment Edema Assessment dex LE's Edema Degree 2+ Edema Appearance Discolored,Puffy,Shiny,Taut Comments lower legs especially midcalf to toes PT-OP-K Range of Motion Start: 02/21/24 15:20 Freq: Status: Active Protocol: Document 02/21/24 15:21 [facility] (Rec: 02/21/24 17:15 [facility] [id number]) Lumbar Spine Range of Motion Lumbar Spine Active Testing Position Standing Flexion 90 Rotation Left 20 Rotation Right 20 Lateral Flexion Left 40 Lateral Flexion Right 40 Comments 40 degrees from neutral extension with c/o increased pain all motions low back and right LE Hip Goniometric Range of Motion Hip Right Hip ROM WFL No Flexion w/Knee Flexed 95 Extension 0 Abduction 20 Internal Rotation 10 External Rotation 70 Left Hip ROM WFL No Flexion w/Knee Flexed 100 Extension 0 Abduction 20 Internal Rotation 15 External Rotation 65 Knee Goniometric Range of Motion Knee dex Knee ROM WFL Yes Ankle and Foot Goniometric Range of Motion Ankle and Foot dex Ankle/Foot ROM WFL No Dorsiflexion with Knee Flexed 5 Dorsiflexion with Knee Extended 0 Ankle and Foot ROM Limitations ROM Limitations Swelling PT-OP-L Special Tests Start: 02/21/24 15:20 Freq: Status: Active Protocol: Document 02/21/24 15:21 [facility] (Rec: 02/22/24 13:32 [facility] [id number]) Special Tests Lumbar Spine Special Tests Compression Test Results - PT-OP-M Strength Start: 02/21/24 15:20 Freq: Status: Active Protocol: Document 02/21/24 15:21 [facility] (Rec: 02/22/24 13:32 [facility] [id number]) Hip Strength Hip Manual Muscle Testing Left Flexion (L2) 4 Good Extension (S1) 3- Fair- Abduction 3+ Fair+ Adduction 3+ Fair+ External Rotation 3- Fair- Internal Rotation 3+ Fair+ Right Flexion (L2) 3+ Fair+ Extension (S1) 3- Fair- Abduction 3+ Fair+ Adduction 3+ Fair+ External Rotation 3- Fair- Internal Rotation 3+ Fair+ Comments tested seated Knee Strength Knee Manual Muscle Testing Left Flexion (S2) 4 Good Extension (L3) 4 Good Right Flexion (S2) 4 Good Extension (L3) 4 Good Ankle/Foot Strength Ankle and Foot Manual Muscle Testing Left Dorsiflexion (L4) 4 Good Plantarflexion (S1) 4 Good Right Dorsiflexion (L4) 4- Good- Plantarflexion (S1) 4- Good- PT-OP-Q Treatments Start: 02/21/24 15:20 Freq: Status: Active Protocol: Document 02/21/24 15:21 [facility] (Rec: 02/21/24 17:15 [facility] [id number]) Self-Care/Home Management Treatment Education Patient Education Pain Management,Posture Other Education use of spine model to explain patient x-ray and MRI results Recommended trial heat and ice at home, wear compression socks for LE edema, elevate legs as able, try to lay on side in bed for brief periods of time with pilow support per [facility] bed positioning handout or in 90/90 position Use of walker for spinal decompression brief periods PT-OP-R Modalities Start: 02/21/24 15:20 Freq: Status: Active Protocol: Document 02/21/24 15:21 [facility] (Rec: 02/21/24 17:15 [facility] [id number]) Hot Pack/Cold Pack Treatment Cold Pack Location l/s, piriformis Patient Position Sitting Patient Tolerance Fair Comments during patient education PT-OP-T Assessment and Plan Start: 02/21/24 15:20 Freq: Status: Active Protocol: Document 02/21/24 15:21 [facility] (Rec: 02/21/24 17:15 [facility] [id number]) Physical Therapy Assessment Rehab Potential Rehabilitation Potential Fair Evaluation Complexity Number of Personal Factors/Comorbidities 3 or More Number of Body Systems Impaired 4 or More Clinical Presentation at Evaluation Unstable Impairments Impairments Activity Tolerance,Gait,Pain, Posture Goals Four Impairment severe pain right LE as high as 10/10, right buttock and left youngblood pn 5/10 Short Term Goal (STG) decrease pain by at least 25% with all usual activities STG Duration 03/23/24 Human Services Care Specialist Goal (LTG) decrease pain by at least 50% with all usual activities LTG Duration 04/20/24 Three Impairment unable to ambulate more than 10 ft due to pain Human Services Care Specialist Goal (LTG) Patient will be able to ambulate at least 100 ft before requiring break LTG Duration 04/20/24 Two Impairment Patient stands in trunk flex approx 90 deg, max ext 40 deg from neutral Mcfp Goal (LTG) Patient will be able to stand for 5 min with spine no greater than 20 deg from neutral LTG Duration 04/20/24 One Impairment Oswestry disabiity index score 76% Short Term Goal (STG) Decrease Oswestry score to no greater than 65% as measure of decreased pain and improved function STG Duration 03/23/24 Mcfp Goal (LTG) Decrease scoere to no greater than 50% as measure of decreased pain and improved function LTG Duration 04/20/24 Assessment Summary Assessment Patient presents to PT with severe function-limiting pain in his low back, with radicular symptoms into his right buttock and entire right LE, and left youngblood. Pain is most severe in his right LE; constant and worsens with attempts at standing and walking. HE is unable to lay in bed in any position without an increase in pain. Spends the majority of his day sitting on couch with legs dependent, sleep severely impaired with patient reporting he sleeps with his body bent to the side on the couch with legs on the floor. States sitting on the floor in cross legged position and bent forward most comfortable. He has developed edema in his lower legs, has compression stockings but doesn't wear. Takes 1/2 Oxycodone for pain. Hasn't tried ice or heat. Accupuncture not helpful. He has severe postural dysfunction, with inability to walk more than 10 ft and in severely forward flexed postion (approx 90 degrees). Patient unable to stand upright more than 40 degrees from neutral and reports an increase in pain in his leg and back when he tries to stand upright. Patient has significant tenderness right gluteal region, muscle tightness and guarding lumbar paraspinals, weakness in LE's. LT sensation intact. Patient observed to be fatigued Reports has tried Gabapentin and other nerve pain medication without benefit. Spinal compression negative. Objective evaluation difficult due to severity of pain and lack of tolerance for laying down. Intact to light touch. LE strength impaired but symmetrical. Prognosis for improvement is guarded. Patient has an appointment with Dr. Cavanaugh in 1 1/2 months to consult for injection. States he doesn't want surgery but also doesn't feel he will be able to tolerate PT but willing to try . Much time spent with patient education regarding his x-ray and MRI results, options for treatment with PT, importance of neutral alignment and strength for spine health, importance of wearing his compression to decrease his edema in his legs . Recommended use of ice and heat at home, gentle LE ex, trial use of his walker after instruction in PT for offloading spine while standing/walking. Discussed POC and patient was in reluctant agreement for trial of PT due to severity of pain. Prognosis guarded. was present and supportive. Physical Therapy Plan Frequency and Duration Frequency of Treatment 2x/Week Duration of treatment (weeks) 8 Plan of Care Start Date 02/21/24 Plan of Care End Date 04/20/24 Therapeutic Interventions Therapeutic Interventions Gait Training,Home Exercise Program,Manual Therapy,Patient /Caregiver Education,Self-Care /Home Management,Soft Tissue Mobilization,Taping, Therapeutic Activities, Therapeutic Exercises Modalities Cold Pack/Ice Massage,Electric Stimulation,Hot Packs Next Visit Focus/Plan Next Note Type Treatment Note Next Visit Plan Sci-Fit to start if tolerated, trial IFES with moist heat, instruction in gentle hip and core strengthening and flexibility. Issue HO for HEP
--- NOTE | 2024-02-21 16:15 | PT.OPPOC ---
Physical, Occupational & Speech Therapy At [facility] Current Diagnoses Intervertebral disc disorders with radiculopathy, lumbar region (02/21/24) Visit Care Team Role Provider Type Bill Mijares MD Family Provider Physician Primary Care Provider Specialty: Family Practice Address: [address] [place] [address], [id number] Email: [email or web address] Tomasz Cavanaugh MD Attending Provider Physician Referring Provider Specialty: Orthopedic Surgery Address: [address] [place] [address], [id number] Email: Plan Of Care PT-OP-B Current Condition Start: 02/21/24 15:20 Freq: Status: Active Protocol: Document 02/21/24 15:21 SAK (Rec: 02/21/24 17:15 [facility] [id number]) Current Condition History of Current Condition Onset Date September 2023 History of Current Condition Gradual worsening of LBP and LE pain thinks due to being on hands and knees working on a mower, then went downhill. Leg pain is the worst, increases with trying to straighten up, coughing, sneezing. Has been using wheelchair now for out of house mobility, only 10 ft at a time at home, can't straighten up. Referred to PT , next step injections, last option surgery. Unable to lay down. Minimal sleep. Medications not helpful. Has history numbness and tingling in legs due to cancer, not sure if worse with back pain. History mild LBP. Legs swollen since last fall, check for DVT neg. Has compression socks but hasn't been wearing . Currently receiving chemo 1x every 3 weeks. Hasn't used ice or heat on back or leg Prior Treatments and Tests MRI: L45 disc herniation, stenosis per patient's ( MRI done at [facility], results not available) Future Testing and Treatments Planned no other tests or treatments planned except as above. Treatment Goals Patient/Caregiver Goals Decrease his pain, be able to stand and walk upright. PT-OP-T Assessment and Plan Start: 02/21/24 15:20 Freq: Status: Active Protocol: Document 02/21/24 15:21 [facility] (Rec: 02/21/24 17:15 [facility] [id number]) Physical Therapy Assessment Rehab Potential Rehabilitation Potential Fair Evaluation Complexity Number of Personal Factors/Comorbidities 3 or More Number of Body Systems Impaired 4 or More Clinical Presentation at Evaluation Unstable Impairments Impairments Activity Tolerance,Gait,Pain, Posture Goals Four Impairment severe pain right LE as high as 10/10, right buttock and left youngblood pn 5/10 Short Term Goal (STG) decrease pain by at least 25% with all usual activities STG Duration 03/23/24 Jail Goal (LTG) decrease pain by at least 50% with all usual activities LTG Duration 04/20/24 Three Impairment unable to ambulate more than 10 ft due to pain Reinforcing Metal Worker Goal (LTG) Patient will be able to ambulate at least 100 ft before requiring break LTG Duration 04/20/24 Two Impairment Patient stands in trunk flex approx 90 deg, max ext 40 deg from neutral Reinforcing Metal Worker Goal (LTG) Patient will be able to stand for 5 min with spine no greater than 20 deg from neutral LTG Duration 04/20/24 One Impairment Oswestry disabiity index score 76% Short Term Goal (STG) Decrease Oswestry score to no greater than 65% as measure of decreased pain and improved function STG Duration 03/23/24 Jail Goal (LTG) Decrease scoere to no greater than 50% as measure of decreased pain and improved function LTG Duration 04/20/24 Assessment Summary Assessment Patient presents to PT with severe function-limiting pain in his low back, with radicular symptoms into his right buttock and entire right LE, and left youngblood. Pain is most severe in his right LE; constant and worsens with attempts at standing and walking. HE is unable to lay in bed in any position without an increase in pain. Spends the majority of his day sitting on couch with legs dependent, sleep severely impaired with patient reporting he sleeps with his body bent to the side on the couch with legs on the floor. States sitting on the floor in cross legged position and bent forward most comfortable. He has developed edema in his lower legs, has compression stockings but doesn't wear. Takes 1/2 Oxycodone for pain. Hasn't tried ice or heat. Accupuncture not helpful. He has severe postural dysfunction, with inability to walk more than 10 ft and in severely forward flexed postion (approx 90 degrees). Patient unable to stand upright more than 40 degrees from neutral and reports an increase in pain in his leg and back when he tries to stand upright. Patient has significant tenderness right gluteal region, muscle tightness and guarding lumbar paraspinals, weakness in LE's. LT sensation intact. Patient observed to be fatigued Reports has tried Gabapentin and other nerve pain medication without benefit. Spinal compression negative. Objective evaluation difficult due to severity of pain and lack of tolerance for laying down. Intact to light touch. LE strength impaired but symmetrical. Prognosis for improvement is guarded. Patient has an appointment with Dr. Cavanaugh in 1 1/2 months to consult for injection. States he doesn't want surgery but also doesn't feel he will be able to tolerate PT but willing to try . Much time spent with patient education regarding his x-ray and MRI results, options for treatment with PT, importance of neutral alignment and strength for spine health, importance of wearing his compression to decrease his edema in his legs . Recommended use of ice and heat at home, gentle LE ex, trial use of his walker after instruction in PT for offloading spine while standing/walking. Discussed POC and patient was in reluctant agreement for trial of PT due to severity of pain. Prognosis guarded. was present and supportive. Physical Therapy Plan Frequency and Duration Frequency of Treatment 2x/Week Duration of treatment (weeks) 8 Plan of Care Start Date 02/21/24 Plan of Care End Date 04/20/24 Therapeutic Interventions Therapeutic Interventions Gait Training,Home Exercise Program,Manual Therapy,Patient /Caregiver Education,Self-Care /Home Management,Soft Tissue Mobilization,Taping, Therapeutic Activities, Therapeutic Exercises Modalities Cold Pack/Ice Massage,Electric Stimulation,Hot Packs Next Visit Focus/Plan Next Note Type Treatment Note Next Visit Plan Sci-Fit to start if tolerated, trial IFES with moist heat, instruction in gentle hip and core strengthening and flexibility. Issue HO for HEP Plan of Care Dates Plan of Care Start Date 02/21/24 Plan of Care End Date 04/20/24 Electronically Signed by: Jody Ferrer, PT 02/22/24 2705 If you are in agreement with this Plan of Care, please return a signed and dated copy. I have reviewed this Plan of Care and certify that the skilled therapy services above are required to meet the patient?s needs. Physician Signature Date Printed Name and Credentials Clinical Instructor Signature Printed Name and Credentials
--- NOTE | 2024-02-29 17:08 | PT.OTN ---
Current Diagnoses Intervertebral disc disorders with radiculopathy, lumbar region (02/29/24) Physical Therapy Treatment Note PT-OP-A Visit Information Start: 02/21/24 15:20 Freq: Status: Active Protocol: Document 02/29/24 09:48 SAK (Rec: 02/29/24 10:48 SAK [id number]) Out-Patient Physical Therapy Visit Information Visit Information Visit Type Treatment Note Visit Start Time 09:45 Visit Stop Time 10:40 Visit Number 2 Precautions Precautions Lung cancer. Uses oxygen at night. PT-OP-B Current Condition Start: 02/21/24 15:20 Freq: Status: Active Protocol: Document 02/29/24 09:48 SAK (Rec: 02/29/24 10:48 SAK [id number]) Current Condition History of Current Condition Onset Date September 2023 History of Current Condition Gradual worsening of LBP and LE pain thinks due to being on hands and knees working on a mower, then went downhill. Leg pain is the worst, increases with trying to straighten up, coughing, sneezing. Has been using wheelchair now for out of house mobility, only 10 ft at a time at home, can't straighten up. Referred to PT , next step injections, last option surgery. Unable to lay down. Minimal sleep. Medications not helpful. Has history numbness and tingling in legs due to cancer, not sure if worse with back pain. History mild LBP. Legs swollen since last fall, check for DVT neg. Has compression socks but hasn't been wearing . Currently receiving chemo 1x every 3 weeks. Hasn't used ice or heat on back or leg Prior Treatments and Tests MRI: L45 disc herniation, stenosis per patient's ( MRI done at [facility], results not available) Future Testing and Treatments Planned no other tests or treatments planned except as above. PT-OP-C Subjective Start: 02/21/24 15:20 Freq: Status: Active Protocol: Document 02/29/24 09:48 SAK (Rec: 02/29/24 10:48 SAK [id number]) OP-PT Subjective Patient Comments Patient Comments States he was miserable after last PT session, couldn't hardly stand or walk for 2 days. Has been elevating legs , wearing compression stockings, using a heating pad on hip and back as instructed. Has tried laying down in bed as instructed for decompressing and lengthening his body but with very poor tolerance. Limited walking, still mostly sitting. PT-OP-G Mobility & Gait Start: 02/21/24 15:20 Freq: Status: Active Protocol: Document 02/21/24 15:21 [facility] (Rec: 02/22/24 13:32 [facility] [id number]) OP Gait Assessment Gait Gait Assistance Required: Independent Distance (Feet) 5 Assistive Devices Assistive Device None Gait Deviations General Gait Pattern Flexed Trunk Factors Limiting Gait Function Factors Limiting Gait Function Pain Comments Gait Comments severely bent forward at trunk PT-OP-H Neuro Start: 02/21/24 15:20 Freq: Status: Active Protocol: Document 02/21/24 15:21 [facility] (Rec: 02/22/24 13:32 [facility] [id number]) Sensation Evaluation Gross Sensation Gross Sensation Left UE Impaired Sensation Description Pain PT-OP-J Posture/Palpation/Skin Start: 02/21/24 15:20 Freq: Status: Active Protocol: Document 02/21/24 15:21 [facility] (Rec: 02/21/24 17:15 [facility] [id number]) Posture Evaluation Position Standing L-Spine Posture Flattened Comments Posture Comments standing with forward bend approx 90 degrees, unable to straighten further than 40 degrees from upright. Increased thoracic kyphosis and flattened lumbar spine. Patient sits in w/c with posterior pelvic tilt Palpation Assessment Location lumbar paraspinals Palpation Findings Soft Tissue Tightness,Muscle Guarding right piriformis Palpation Findings Tenderness Skin Assessment Edema Assessment dex LE's Edema Degree 2+ Edema Appearance Discolored,Puffy,Shiny,Taut Comments lower legs especially midcalf to toes PT-OP-K Range of Motion Start: 02/21/24 15:20 Freq: Status: Active Protocol: Document 02/21/24 15:21 [facility] (Rec: 02/21/24 17:15 [facility] [id number]) Lumbar Spine Range of Motion Lumbar Spine Active Testing Position Standing Flexion 90 Rotation Left 20 Rotation Right 20 Lateral Flexion Left 40 Lateral Flexion Right 40 Comments 40 degrees from neutral extension with c/o increased pain all motions low back and right LE Hip Goniometric Range of Motion Hip Right Hip ROM WFL No Flexion w/Knee Flexed 95 Extension 0 Abduction 20 Internal Rotation 10 External Rotation 70 Left Hip ROM WFL No Flexion w/Knee Flexed 100 Extension 0 Abduction 20 Internal Rotation 15 External Rotation 65 Knee Goniometric Range of Motion Knee dex Knee ROM WFL Yes Ankle and Foot Goniometric Range of Motion Ankle and Foot dex Ankle/Foot ROM WFL No Dorsiflexion with Knee Flexed 5 Dorsiflexion with Knee Extended 0 Ankle and Foot ROM Limitations ROM Limitations Swelling PT-OP-L Special Tests Start: 02/21/24 15:20 Freq: Status: Active Protocol: Document 02/21/24 15:21 [facility] (Rec: 02/22/24 13:32 [facility] [id number]) Special Tests Lumbar Spine Special Tests Compression Test Results - PT-OP-M Strength Start: 02/21/24 15:20 Freq: Status: Active Protocol: Document 02/21/24 15:21 [facility] (Rec: 02/22/24 13:32 [facility] [id number]) Hip Strength Hip Manual Muscle Testing Left Flexion (L2) 4 Good Extension (S1) 3- Fair- Abduction 3+ Fair+ Adduction 3+ Fair+ External Rotation 3- Fair- Internal Rotation 3+ Fair+ Right Flexion (L2) 3+ Fair+ Extension (S1) 3- Fair- Abduction 3+ Fair+ Adduction 3+ Fair+ External Rotation 3- Fair- Internal Rotation 3+ Fair+ Comments tested seated Knee Strength Knee Manual Muscle Testing Left Flexion (S2) 4 Good Extension (L3) 4 Good Right Flexion (S2) 4 Good Extension (L3) 4 Good Ankle/Foot Strength Ankle and Foot Manual Muscle Testing Left Dorsiflexion (L4) 4 Good Plantarflexion (S1) 4 Good Right Dorsiflexion (L4) 4- Good- Plantarflexion (S1) 4- Good- PT-OP-Q Treatments Start: 02/21/24 15:20 Freq: Status: Active Protocol: Document 02/29/24 09:48 [facility] (Rec: 02/29/24 10:48 [facility] [id number]) Therapeutic Exercises Sitting Exercises pelvic tilt Sitting Exercise Name gentle Reps/Minutes 3x Comments cues for pain-free motion shoulder shrug Reps/Minutes 10x Comments cues for painfree motion scapular squeeze Reps/Minutes 10x Comments cues for pain-free intensity glut set Reps/Minutes 10x Comments cues for core activation clam Equipment Used L2 Comments poor tolerance, held Ball squeeze Reps/Minutes 10x Comments cues for core activation TrA Reps/Minutes 10x Comments cues for breath control Manual Therapy Treatment Consent Patient gave verbal consent for manual Yes treatment Soft Tissue Mobilization lumbar spine, glut Mobilization Type Myofascial Release,Strumming Intensity/Depth mild to mod Body Position seated, leaned forward on pillowselevated treatment table Comments good tolerance Self-Care/Home Management Treatment Education Patient Education Home Exercise Program,Pain Management,Posture Other Education issued written HEP HO Activities Self-Care/Home Management Activities Continue to try to lay in bed, straighten body gently in bed , and standing with walker PT-OP-R Modalities Start: 02/21/24 15:20 Freq: Status: Active Protocol: Document 02/29/24 09:48 [facility] (Rec: 02/29/24 10:48 [facility] [id number]) Electric Stimulation Electric Stimulation Interferential Current (IFC) Body Location dex l/s Intensity 47 Target/Sweep Sweep Patient Position Sidelying Combined With Heat/Cold Hot Pack PT-OP-T Assessment and Plan Start: 02/21/24 15:20 Freq: Status: Active Protocol: Document 02/29/24 09:48 [facility] (Rec: 02/29/24 10:48 [facility] [id number]) Physical Therapy Assessment Impairments Impairments Activity Tolerance,Gait,Pain, Posture Goals Four Impairment severe pain right LE as high as 10/10, right buttock and left youngblood pn 5/10 Short Term Goal (STG) decrease pain by at least 25% with all usual activities STG Duration 03/23/24 Patient Placement Coordinator Goal (LTG) decrease pain by at least 50% with all usual activities LTG Duration 04/20/24 Three Impairment unable to ambulate more than 10 ft due to pain Patient Placement Coordinator Goal (LTG) Patient will be able to ambulate at least 100 ft before requiring break LTG Duration 04/20/24 Two Impairment Patient stands in trunk flex approx 90 deg, max ext 40 deg from neutral Care Home Goal (LTG) Patient will be able to stand for 5 min with spine no greater than 20 deg from neutral LTG Duration 04/20/24 One Impairment Oswestry disabiity index score 76% Short Term Goal (STG) Decrease Oswestry score to no greater than 65% as measure of decreased pain and improved function STG Duration 03/23/24 Care Home Goal (LTG) Decrease scoere to no greater than 50% as measure of decreased pain and improved function LTG Duration 04/20/24 Assessment Summary Assessment Patient with fair tolerance for seated ther ex except didn 't tolerate seated clamshell. Good hui for manual seated in forward bent position. TRial IFES sidelying today l/s with MH with fair hui. Physical Therapy Plan Frequency and Duration Frequency of Treatment 2x/Week Duration of treatment (weeks) 8 Plan of Care Start Date 02/21/24 Plan of Care End Date 04/20/24 Therapeutic Interventions Therapeutic Interventions Gait Training,Home Exercise Program,Manual Therapy,Patient /Caregiver Education,Self-Care /Home Management,Soft Tissue Mobilization,Taping, Therapeutic Activities, Therapeutic Exercises Modalities Cold Pack/Ice Massage,Electric Stimulation,Hot Packs Next Visit Focus/Plan Next Note Type Treatment Note Next Visit Plan ASsess response to last session. Consider start recumbant elliptical. Trial IFES with MH supine 90/90 with core ex. LE ROM working toward lengtheing toward neutral posture.
--- NOTE | 2024-06-05 10:27 | PT.OPDS ---
Current Diagnoses Intervertebral disc disorders with radiculopathy, lumbar region (02/29/24) Visit Care Team Role Provider Type Bill Mijares MD Family Provider Physician Primary Care Provider Specialty: Family Practice Address: [address] [place] [address], [id number] Email: [email or web address] Tomasz Cavanaugh MD Attending Provider Physician Referring Provider Specialty: Orthopedic Surgery Address: [address] [place] [address], [id number] Email: Visit Number Visit Number 2 Discharge Summary PT-OP-B Current Condition Start: 02/21/24 15:20 Freq: Status: Active Protocol: Document 02/29/24 09:48 SAK (Rec: 02/29/24 10:48 SAK [id number]) Current Condition History of Current Condition Onset Date September 2023 History of Current Condition Gradual worsening of LBP and LE pain thinks due to being on hands and knees working on a mower, then went downhill. Leg pain is the worst, increases with trying to straighten up, coughing, sneezing. Has been using wheelchair now for out of house mobility, only 10 ft at a time at home, can't straighten up. Referred to PT , next step injections, last option surgery. Unable to lay down. Minimal sleep. Medications not helpful. Has history numbness and tingling in legs due to cancer, not sure if worse with back pain. History mild LBP. Legs swollen since last fall, check for DVT neg. Has compression socks but hasn't been wearing . Currently receiving chemo 1x every 3 weeks. Hasn't used ice or heat on back or leg Prior Treatments and Tests MRI: L45 disc herniation, stenosis per patient's ( MRI done at [facility], results not available) Future Testing and Treatments Planned no other tests or treatments planned except as above. PT-OP-C Subjective Start: 02/21/24 15:20 Freq: Status: Active Protocol: Document 02/29/24 09:48 SAK (Rec: 02/29/24 10:48 SAK [id number]) OP-PT Subjective Patient Comments Patient Comments States he was miserable after last PT session, couldn't hardly stand or walk for 2 days. Has been elevating legs , wearing compression stockings, using a heating pad on hip and back as instructed. Has tried laying down in bed as instructed for decompressing and lengthening his body but with very poor tolerance. Limited walking, still mostly sitting. PT-OP-G Mobility & Gait Start: 02/21/24 15:20 Freq: Status: Active Protocol: Document 02/21/24 15:21 [facility] (Rec: 02/22/24 13:32 [facility] [id number]) OP Gait Assessment Gait Gait Assistance Required: Independent Distance (Feet) 5 Assistive Devices Assistive Device None Gait Deviations General Gait Pattern Flexed Trunk Factors Limiting Gait Function Factors Limiting Gait Function Pain Comments Gait Comments severely bent forward at trunk PT-OP-H Neuro Start: 02/21/24 15:20 Freq: Status: Active Protocol: Document 02/21/24 15:21 [facility] (Rec: 02/22/24 13:32 [facility] [id number]) Sensation Evaluation Gross Sensation Gross Sensation Left UE Impaired Sensation Description Pain PT-OP-J Posture/Palpation/Skin Start: 02/21/24 15:20 Freq: Status: Active Protocol: Document 02/21/24 15:21 [facility] (Rec: 02/21/24 17:15 [facility] [id number]) Posture Evaluation Position Standing L-Spine Posture Flattened Comments Posture Comments standing with forward bend approx 90 degrees, unable to straighten further than 40 degrees from upright. Increased thoracic kyphosis and flattened lumbar spine. Patient sits in w/c with posterior pelvic tilt Palpation Assessment Location lumbar paraspinals Palpation Findings Soft Tissue Tightness,Muscle Guarding right piriformis Palpation Findings Tenderness Skin Assessment Edema Assessment dex LE's Edema Degree 2+ Edema Appearance Discolored,Puffy,Shiny,Taut Comments lower legs especially midcalf to toes PT-OP-K Range of Motion Start: 02/21/24 15:20 Freq: Status: Active Protocol: Document 02/21/24 15:21 [facility] (Rec: 02/21/24 17:15 [facility] [id number]) Lumbar Spine Range of Motion Lumbar Spine Active Testing Position Standing Flexion 90 Rotation Left 20 Rotation Right 20 Lateral Flexion Left 40 Lateral Flexion Right 40 Comments 40 degrees from neutral extension with c/o increased pain all motions low back and right LE Hip Goniometric Range of Motion Hip Right Hip ROM WFL No Flexion w/Knee Flexed 95 Extension 0 Abduction 20 Internal Rotation 10 External Rotation 70 Left Hip ROM WFL No Flexion w/Knee Flexed 100 Extension 0 Abduction 20 Internal Rotation 15 External Rotation 65 Knee Goniometric Range of Motion Knee dex Knee ROM WFL Yes Ankle and Foot Goniometric Range of Motion Ankle and Foot dex Ankle/Foot ROM WFL No Dorsiflexion with Knee Flexed 5 Dorsiflexion with Knee Extended 0 Ankle and Foot ROM Limitations ROM Limitations Swelling PT-OP-L Special Tests Start: 02/21/24 15:20 Freq: Status: Active Protocol: Document 02/21/24 15:21 [facility] (Rec: 02/22/24 13:32 SAK [id number]) Special Tests Lumbar Spine Special Tests Compression Test Results - PT-OP-M Strength Start: 02/21/24 15:20 Freq: Status: Active Protocol: Document 02/21/24 15:21 [facility]AK (Rec: 02/22/24 13:32 SAK [id number]) Hip Strength Hip Manual Muscle Testing Left Flexion (L2) 4 Good Extension (S1) 3- Fair- Abduction 3+ Fair+ Adduction 3+ Fair+ External Rotation 3- Fair- Internal Rotation 3+ Fair+ Right Flexion (L2) 3+ Fair+ Extension (S1) 3- Fair- Abduction 3+ Fair+ Adduction 3+ Fair+ External Rotation 3- Fair- Internal Rotation 3+ Fair+ Comments tested seated Knee Strength Knee Manual Muscle Testing Left Flexion (S2) 4 Good Extension (L3) 4 Good Right Flexion (S2) 4 Good Extension (L3) 4 Good Ankle/Foot Strength Ankle and Foot Manual Muscle Testing Left Dorsiflexion (L4) 4 Good Plantarflexion (S1) 4 Good Right Dorsiflexion (L4) 4- Good- Plantarflexion (S1) 4- Good- PT-OP-T Assessment and Plan Start: 02/21/24 15:20 Freq: Status: Active Protocol: Document 06/05/24 10:26 [facility] (Rec: 06/05/24 10:27 [facility] Laptop) Physical Therapy Plan Discharge Physical Therapy Discharge Reasons No Longer Attending PT
== END 2024-06-06 13:34 | disposition home or self-care (01) ==
LOC: PHYS 09:45
PROVIDERS: Family Provider Family Medicine; PCP Family Medicine; Referring Provider Orthopaedic Surgery; Visit Provider Orthopaedic Surgery
DX: M51.16 Intervertebral disc disorders with radiculopathy, lumbar region (principal)
CPT/HCPCS: 97014; 97110; 97140; 97163; 97535; G0283

== ENCOUNTER 2024-03-27 07:21 | Outpatient (CLI) | payer OTHER, SELFPAY ==
[2024-03-05 16:13] VITALS: BMI 17.8
[2024-03-27] VITALS (11 sets, daily range): BP systolic 112–162; BP diastolic 62–81; PULSE 79–90; RESP 14–22; TEMP 36.7; O2SAT 90–98
--- NOTE | 2024-03-27 07:22 | DI.RAD.S_ITS ---
PROCEDURE: PAIN L/S TRANSFORAMINAL INJECT INDICATIONS: Right L4/5 TFESI COMPARISON: None. FINDINGS/IMPRESSION: Fluoroscopic spot filming was performed to verify placement of spinal needles at the right L4-L5 level(s), as labeled on the films. Appropriate location(s) of the needle tip(s) was confirmed by injection of iodinated contrast. Approved by: Korina Lawton M.D.,Ph.D. on 03/29/2024 at 4:47
[2024-03-27] MEDS: MIDAZOLAM 2 MG/2 ML VIAL IV (08:19)
[2024-03-27] MEDS: DEXAMETHASONE 10 MG/ML VIAL INJ (08:28)
[2024-03-27] MEDS: MIDAZOLAM 2 MG/2 ML VIAL 1 MG IV (08:28)
[2024-03-27] MEDS: iopamidoL 15 ML VIAL 3 ML INJ (08:28)
[2024-03-27] MEDS: BUPIVACAINE 0.25% (PF) VIAL 2 ML INJ (08:30)
[2024-03-27] MEDS: BETAMETHASONE 30 MG/5 ML MDV 12 MG INJ (08:30)
--- NOTE | 2024-03-27 08:42 | P.PCN_ITS ---
Date/Time/Diagnoses Date of procedure: 03/27/24 Time of procedure: 08:42 Pre-procedure diagnosis: 1. FORAMINAL STENOSIS WITH LE SYMPTOMS Post-procedure diagnosis: same Procedure Notes Procedure: 1. FLUOROSCOPICALLY GUIDED CONTRAST CONTROLLED TRANSFORAMINAL EPIDURAL STEROID INJECTION - RIGHT L4/5 TFESI Indications: Daryl is referred by Dr. Mijares for treatment of Foraminal Stenosis with Right LE Symptoms Physician: Danish Talbert Total Fluoroscopy time (seconds): 10 Total sedation minutes: 17 Complications: none Procedure in detail & Post-procedure care: FINDINGS Foraminal Nerve Root Compression secondary to disc disease and facet hypertrophy DESCRIPTION OF PROCEDURE Following review of allergy and review of potential side effects and complications, including, but not necessarily limited to, infection, allergic reaction, local tissue breakdown, stroke, temporary or permanent nerve injury, paralysis, and possible , the patient indicated that the patient understood and agreed to proceed. An informed consent document was signed by the patient, witnessed by a nurse, and placed in the patient's chart. Additionally, other treatment options including medications, modalities, and physical therapy were reviewed with the patient. After review of previous anaesthesic history and IV conscious sedation the patient was deemed safe to proceed with today?s procedure with IV conscious sedation as ASA class II designation. Safety time-out was performed to confirm patient ID, procedure to be performed and site of procedure. IV sedation was accomplished with a combination of 3mg of Versed was administered by the RN after DO order, titrated to patient comfort during the course of the procedure while the patient remained responsive to all verbal commands In the prone position following sterile prep and drape of the lumbar region, the right L4/5 posterior neuroforamen was identified fluoroscopically. The skin was anesthetized via a 25-gauge 1.5-inch needle with 1% lidocaine solution. At this point, a 25-gauge 3.5-inch spinal needle was atraumatically introduced and advanced under fluoroscopic guidance through the posterior right L4/5 neuroforamen to approximately the anterior aspect of the canal. Depth was confirmed on lateral view. Following negative aspiration, injection of approximately 1.5cc of Isovue 200 under live fluoroscopy in the AP view co nfirmed excellent flow along the nerve root, into the epidural space without vascular or intrathecal uptake observed Radiological data, including multiple fluoroscopic views of the lumbosacral spin e, reveal a spinal needle at the right L4/5 posterior neuroforamen. Subsequent views show flow of contrast material flowing superiorly and inferiorly along the nerve root confirming epidural flow. Subsequently, a test dose of 1.5 cc of 1% lidocaine solution was administered and patient was observed for two minutes for signs or symptoms of complications, including abdominal pain, shortness of breath, bilateral upper or lower extremity weakness, nausea and vomiting, prior to steroid injection. At this point, a total of 3cc or 10mg of dexamethasone and 12mg of betamethasone was injected without incident. The procedure tolerated the procedure well without signs or symptoms of complications prior to transfer to the recovery area continued monitoring without incident. The patient was then transferred to the recovery area where they were observed for an appropriate time after the injection. The patient reported a VAS score of 8 prior to the procedure and a post- procedure VAS of 1. POST OP INSTRUCTIONS The patient was provided a Pain Log to continue to record their response to the target-specific procedure prior to follow-up visit with their referring physician. Additionally, specific post-injection care instructions and a contact number to our office were provided if concerns arise regarding possible complications associated with the procedure are suspected.
== END 2024-03-27 09:20 | disposition home or self-care (01) ==
LOC: RAD 07:21
PROVIDERS: Family Provider Family Medicine; PCP Family Medicine; Referring Provider Physical Medicine & Rehabilitation; Visit Provider Physical Medicine & Rehabilitation
DX: M48.061 Spinal stenosis, lumbar region without neurogenic claudication; M51.16 Intervertebral disc disorders with radiculopathy, lumbar region; M47.26 Other spondylosis with radiculopathy, lumbar region
CPT/HCPCS: 64483; 99152; J0702; J1100; J2250; J3490

== ENCOUNTER 2024-04-08 11:46 | Emergency (ER) | payer OTHER, SELFPAY ==
[2024-03-05 16:13] VITALS: BMI 17.8
[2024-04-08] VITALS (14 sets, daily range): BP systolic 131–167; BP diastolic 64–78; PULSE 82–101; RESP 18–35; TEMP 36.6; O2SAT 80–99; BMI 20.7
--- NOTE | 2024-04-08 11:54 | DI.RAD.S_ITS ---
PROCEDURE: XR CHEST 1V INDICATIONS: Shortness of breath TECHNIQUE: One view of the chest was acquired. COMPARISON: [facility], CR, XR CHEST 1V, 09/15/2023, 5:14. FINDINGS: Surgical changes and devices: None. Lungs and pleura: Hyperinflation and chronic interstitial changes. Right-sided Port-A-Cath in appropriate position. Left basilar atelectasis and or infiltrate with left pleural effusion. Mediastinum: Mediastinal contours appear normal. Heart size is normal. Bones and chest wall: No suspicious bony lesions. Overlying soft tissues appear unremarkable. IMPRESSION: Left basilar atelectasis and or infiltrate with small pleural effusion. Underlying hyperinflation and chronic interstitial changes Approved by: Hamzah Jonas M.D. on 04/08/2024 at 11:43
--- NOTE | 2024-04-08 12:08 | EKG_ITS ---
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
[2024-04-08] MEDS: ALBUTEROL 2.5 MG/3 ML NEB (ADULT) 5 MG INH (12:20)
--- NOTE | 2024-04-08 12:44 | DI.CT.S_ITS ---
PROCEDURE: CT ANGIO CHEST PE PROTOCOL INDICATIONS: PE suspected TECHNIQUE: After the administration of intravenous contrast, 2 mm thick sections acquired from the pulmonary apices to the posterior costophrenic angles. MIP reformats of the arterial vasculature were utilized. For radiation dose reduction, the following was used: automated exposure control, adjustment of mA and/or kV according to patient size. COMPARISON: [facility], CT, CT ANGIO CHEST PE PROTOCOL, 09/14/2023, 11:46. FINDINGS: Image quality: Diagnostic. Pulmonary arteries: Pulmonary arteries are normal in size, and demonstrate no intraluminal filling defects to suggest central pulmonary embolism. Lower Neck: No enlarged lymph nodes. Thyroid: No thyroid nodules which require sonographic follow up, per consensus guidelines. Axillae: No enlarged lymph nodes. Chest Wall: Unremarkable. Bones: Unremarkable. Lungs and Pleura: Advanced bullous pulmonary emphysema. Left upper lobe lingular and left lower lobe pulmonary nodules. Lingular lesion measures 1.8 x 1.4 cm previously 1.2 by 1.1 cm Heart: Heart size is normal. No pericardial effusion. Thoracic Vessels: No aortic aneurysm. Right sided Port-A-Cath in place Mediastinum and Telma: Mediastinal and bilateral hilar adenopathy measures up to 2.8 cm on the left. Esophagus: No wall thickening. No hiatal hernia. Upper Abdomen: Visualized upper abdomen solid organs and bowel loops appear normal. IMPRESSION: No pulmonary embolus. Left lower lobe and lingular pulmonary nodules associated with hilar and mediastinal adenopathy, increased from the prior Advanced bullous pulmonary emphysema Approved by: Hamzah Jonas M.D. on 04/08/2024 at 12:43
[2024-04-08 12:46] LABS: Add Manual Diff / Slide Review NO; Basophils Absolute Auto 0 /uL (0-100); Basophils Percent Auto 0.1 % (0-2); Eosinophils Absolute Auto 0 /uL (0-450); Eosinophils Percent Auto 0.1 % (2-4); Hematocrit 41.3 % (41-53); Hemoglobin 13.5 g/dL (13.5-17.5); Lymphocytes Absolute Auto 400 /uL (1100-4500); Lymphocytes Percent Auto 2.4 % (25-40); Mean Corpuscular HGB Conc 32.8 % (30-36); Mean Corpuscular Hemoglobin 33.2 PG (26-34); Mean Corpuscular Volume 101.4 fL (80-100); Monocytes Absolute Auto 100 /uL (0-900); Monocytes Percent Auto 0.6 % (3-14); Neutrophils Absolute Auto 15100 /uL (1500-7000); Neutrophils Percent Auto 96.8 % (50-75); Platelet Count 381 X10^3/uL (150-400); Red Blood Cell Count 4.07 X10^6/uL (4.5-5.9); Red Cell Distribution Width 18.7 % (11.6-14.8); White Blood Cell Count 15.6 X10^3/uL (4.5-11.0)
--- NOTE | 2024-04-08 12:52 | ED_ITS ---
HPI - SOB/Dyspnea General Chief Complaint: Shortness of Breath/Dyspnea Stated Complaint: sob Time Seen by Provider: 04/08/24 12:39 Source: patient and family Mode of arrival: Wheelchair Limitations: no limitations History of Present Illness HPI Narrative: This is a 68-year-old male with a history of advanced lung cancer and COPD. His baseline oxygen requirement is 3 L and he is on 7.5 mg of prednisone a day chronically. He is more short of breath today. He has had a cough which is productive without change in sputum color, he has not had a fever he has not having chest pain. His oxygen requirement has increased dramatically, reportedly he was in the 50s at home on 3 L and at triage was in the 70s. Does not have a history of DVT or pulmonary embolism is not anticoagulated. Has not noted any leg swelling or leg pain. His reports that she has had a respiratory infection at home recently. He is actively receiving chemotherapy for his lung cancer with last chemo administered 4 days ago. He is presently endorsing shortness of breath, reports that the albuterol treatment he received after triage did provide him some relief. Related Data Home Medications Medication Instructions Recorded Confirmed aspirin 81 mg tablet,delayed 81 mg PO DAILY 12/02/17 03/07/24 release folic acid 1 mg tablet 2 mg PO DAILY 04/27/18 03/07/24 oxycodone 10 mg tablet 10 mg PO Q6H PRN Pain, Moderate 05/06/23 03/07/24 ondansetron 8 mg disintegrating 8 mg PO 3XD 09/14/23 03/07/24 tablet prochlorperazine maleate 10 mg 10 mg PO PRN PRN Nausea 09/14/23 03/07/24 tablet carboplatin 150 mg intravenous 600 mg IV Q3W 11/28/23 03/07/24 solution dexamethasone 4 mg tablet 4 mg PO DAILY 11/28/23 03/07/24 potassium chloride 10 mEq oral 10 meq PO BID 01/17/24 03/07/24 packet prednisone 5 mg tablet 5 mg PO DAILY 03/07/24 03/07/24 Previous Rx's Medication Instructions Recorded famotidine 20 mg tablet 20 mg PO BEDTIME GI prophalyxis 06/01/22 #90 tabs ipratropium bromide 0.02 % 2.5 ml inhalation Q6H PRN 08/14/24 solution for inhalation shortness of breath or wheezing #900 mL albuterol sulfate 2.5 mg/3 mL 2.5 mg (3 mL) inhalation Q4-6H PRN 11/10/23 (0.083 %) solution for nebulization shortness of breath or wheezing #180 mL tiotropium 2.5 mcg-olodaterol 2.5 2 puff inhalation DAILY #4 grams 11/10/23 mcg/actuation mist for inhalation (Stiolto Respimat) amlodipine 5 mg tablet 5 mg PO DAILY #90 tabs 12/06/23 lisinopril 20 mg tablet 20 mg PO DAILY #90 tabs 12/06/23 doxycycline hyclate 100 mg capsule 100 mg PO BID 7 days #14 caps 04/08/24 prednisone 10 mg tablet 10 mg PO DIRECTED #47 tabs 04/08/24 Allergies Allergy/AdvReac Type Severity Reaction Status Date / Time ciprofloxacin AdvReac Intermediate SEVERE Verified 03/07/24 08:36 NAUSEA zolpidem [From Ambien] AdvReac Intermediate Nausea Verified 03/07/24 08:36 Patient History Medical History Atrial fibrillation (04/2014) Back pain Chronic right hip pain Esophagitis (10/28/16) Frequent UTI Herniated nucleus pulposus, L4-5 History of colon cancer in adulthood (~2016) Lower back pain Lumbar spinal stenosis Lung cancer (04/2014) Pain of right lower extremity Surgical History History of esophagogastroduodenoscopy (EGD) (10/20/16) Status post biopsy (04/2014) Status post colonoscopy (10/20/16) Status post hemorrhoidectomy (07/02/08) Social History household members: spouse Smoking Status: Former smoker Tobacco: How many years used: 50 alcohol intake: former substance use type: does not use Smoking Status: Former smoker Exam Initial Vital Signs Initial Vital Signs: Vital Signs Temperature 97.8 F 04/08/24 11:49 Pulse Rate 99 H 04/08/24 11:49 Respiratory Rate 18 04/08/24 11:49 Blood Pressure 167/75 H 04/08/24 11:49 Pulse Oximetry 80 L 04/08/24 11:49 Oxygen Delivery Method Room Air 04/08/24 11:49 Low oxygen saturation is noted, the patient is afebrile with a normal heart rate Const Other: Thin male who appears to be having difficulty with breathing. He is able to speak in 3-4 word sentences but prefers to defer most of the history to his WADE OLVERA Other: Normocephalic atraumatic Neck Other: Supple without jugular venous distention Resp Other: Is using accessory muscles for breathing. Wheezy throughout no rales heard breath sounds are equal Cardio Other: Borderline tachycardia regular rhythm rate no murmur or gallop GI Other: Soft and nontender Skin Other: Warm and dry Neuro Other: Alert and oriented without gross motor deficit Extrem Other: No leg swelling or calf cords, calves are nontender Course Orders Ordered: ED Orders 04/08/24 11:54 XR chest 1V Stat EKG-12 Lead Stat RT Consult Eval and Treat NOW 04/08/24 12:25 Complete Blood Count AUTO DIFF Stat Comprehensive Metabolic Panel Stat Lactate (Lactic Acid) Stat NT-proBNP (BNP-Adult 18+) Stat Prothrombin Time INR Stat Troponin I Stat 04/08/24 12:44 CT angio chest PE protocol Stat VBG [Venous Blood Gas] STAT 04/08/24 12:51 Venous Blood Gas Routine 04/08/24 12:52 Respiratory Panel (Film Array) Stat Discontinued Medications Albuterol (Albuterol 2.5 Mg/3 Ml Neb (Adult)) 5 mg INH NOW ONE Stop: 04/08/24 12:14 Last Admin: 04/08/24 12:20 Dose: 5 mg Documented By: FRANCI Doxycycline Hyclate (Doxycycline Hyclate 100 Mg Tablet) 100 mg PO NOW ONE Stop: 04/08/24 15:53 Prednisone (Prednisone 20 Mg Tablet) 60 mg PO NOW ONE Stop: 04/08/24 12:52 Last Admin: 04/08/24 12:56 Dose: 60 mg Documented By: RB Consultations Consultation #1: Patient was re-evaluated prior to discharge. Reports his breathing is much improved. I have titrated him down to 3 L oxygen and he appears to be tolerating this. We discussed admission versus discharge, patient would prefer to go home. Going to start him on doxycycline and steroid taper. Vital Signs Vital signs: Vital Signs - 8 hr 04/08/24 11:49 04/08/24 11:57 04/08/24 11:58 Temperature 97.8 F Pulse Rate 99 H 99 H Respiratory Rate 18 Blood Pressure 167/75 H 155/76 H Pulse Oximetry 80 L 83 L Oxygen Delivery Method Room Air Nasal Cannula Oxygen Flow Rate 3 04/08/24 11:58 04/08/24 12:00 04/08/24 12:00 Temperature Pulse Rate 93 H 87 Respiratory Rate Blood Pressure 151/72 H Pulse Oximetry 84 L 95 Oxygen Delivery Method Nasal Cannula Oximask Oxygen Flow Rate 3 5 04/08/24 12:23 04/08/24 12:30 04/08/24 12:30 Temperature Pulse Rate 84 86 Respiratory Rate 24 Blood Pressure 165/78 H Pulse Oximetry 97 99 Oxygen Delivery Method Oximask Oximask Oxygen Flow Rate 5 5 04/08/24 13:00 04/08/24 13:00 04/08/24 13:30 Temperature Pulse Rate 95 H 101 H Respiratory Rate 28 H 33 H Blood Pressure 147/70 H Pulse Oximetry 95 95 Oxygen Delivery Method Simple Mask Oxygen Flow Rate 5 04/08/24 14:00 04/08/24 14:30 04/08/24 15:00 Temperature Pulse Rate 92 H 88 96 H Respiratory Rate 33 H 31 H 30 H Blood Pressure Pulse Oximetry 97 97 97 Oxygen Delivery Method Oxygen Flow Rate 04/08/24 15:30 Temperature Pulse Rate 84 Respiratory Rate 28 H Blood Pressure Pulse Oximetry 97 Oxygen Delivery Method Oxygen Flow Rate MDM - SOB/Dyspnea Lab Data Lab results narrative: Labs remarkable for leukocytosis with a white count of 15.6 CBC is otherwise unremarkable, venous blood gas pH is normal with a CO2 of 50, suggesting chronic retention, elevated BUN to creatinine ratio suggesting dehydration, respiratory panel positive for a non COVID coronavirus. ProBNP is elevated. 04/08/24 12:25 04/08/24 12:25 Labs: Lab Results 04/08/24 04/08/24 04/08/24 Range/Units 12:25 12:51 12:52 WBC 15.6 H (4.5-11.0) X10^3/uL RBC 4.07 L (4.5-5.9) X10^6/uL Hgb 13.5 (13.5-17.5) g/dL Hct 41.3 (41-53) % MCV 101.4 H (80-100) fL MCH 33.2 (26-34) PG MCHC 32.8 (30-36) % RDW 18.7 H (11.6-14.8) % Plt Count 381 (150-400) X10^3/uL Neut % (Auto) 96.8 H (50-75) % Lymph % (Auto) 2.4 L (25-40) % Wilkes % (Auto) 0.6 L (3-14) % Eos % (Auto) 0.1 L (2-4) % Baso % (Auto) 0.1 (0-2) % Neut # (Auto) 09059 H (4903-8078) /uL Lymph # (Auto) 400 L (7345-1521) /uL Wilkes # (Auto) 100 (0-900) /uL Eos # (Auto) 0 (0-450) /uL Baso # (Auto) 0 (0-100) /uL PT 12.4 (9.4-12.5) SECONDS INR 1.1 (0.9-1.3) VBG pH 7.42 (7.33-7.43) VBG pCO2 50.7 H (45-50) mmHg VBG pO2 43 (35-45) mmHg VBG HCO3 33 H (24-28) mmol/L VBG Total CO2 32 H (24-29) mmol/L VBG O2 Saturation 79 H (70-75) % VBG Base Excess 6.4 H (0-4) mmol/L Sodium 135 L (137-145) mmol/L Potassium 4.4 (3.4-5.1) mmol/L Chloride 97 L (98-107) mmol/L Carbon Dioxide 33 H (22-32) mmol/L BUN 31 H (9-20) mg/dL Creatinine 0.81 (0.66-1.25) mg/dL Estimated GFR > 60 (>60) mL/min BUN/Creatinine Ratio 38.3 H (6-22) Glucose 100 (80-110) mg/dL Lactate 0.8 (0.7-2.1) mmol/L Calcium 8.9 (8.4-10.2) mg/dL Total Bilirubin 0.9 (0.2-1.3) mg/dL AST 45 (17-59) IU/L ALT 40 (<50) IU/L Alkaline Phosphatase 99 (38-126) U/L Troponin I < 0.012 (0.01-0.034) ng/mL NT-Pro-B Natriuret Pep 533 H (<125) pg/mL Total Protein 6.5 (6.3-8.2) g/dL Albumin 3.6 (3.5-5.0) g/dL Globulin 2.9 (1.7-4.1) g/dL Albumin/Globulin Ratio 1.2 (1.0-2.8) Chlamy pneumoniae PCR Not detected (Not Detect) Adenovirus (PCR) Not detected (Not Detect) B. pertussis DNA (PCR) Not detected (Not Detect) B.parapertussis DNA PCR Not detected (Not Detecte) Coronavirus OC43 (PCR) Detected H (Not Detect) Coronavirus HKU1 (PCR) Not detected (Not Detect) Coronavirus 229E (PCR) Not detected (Not Detect) SARS-CoV-2 (PCR) Not detected (Not Detecte) Coronavirus NL63 (PCR) Not detected (Not Detect) Human Metapneumovir PCR Not detected (Not Detect) Influenza Type A (PCR) Not detected (Not Detect) Influenza Type B (PCR) Not detected (Not Detect) M. pneumoniae (PCR) Not detected (Not Detect) Parainfluenza 1 (PCR) Not detected (Not Detect) Parainfluenza 2 (PCR) Not detected (Not Detect) Parainfluenza 3 (PCR) Not detected (Not Detect) Parainfluenza 4 (PCR) Not detected (Not Detect) RSV (PCR) Not detected (Not Detect) Entero/Rhino (PCR) Not detected (Not Detect) Imaging Data Chest x-ray: My Impression: Independently reviewed chest x-ray, increased lung marking was in both bases and hyperinflation, overall this appears chronic. No clear infiltrate on my initial review. CT scan - chest: My Impression: Independent reviewed CT angio chest, no pulmonary embolism, no infiltrate Radiologist's Impression: [address] [address] [address] Scan Report Signed Patient: Daryl Peña MR#: [id number] : 1955 Acct:[id number] Age/Sex: 68 / M Date of Service: 04/08/24 Loc: ED Accession Number: [id number] Procedure: CT angio chest PE protocol Ordering Provider: Naveen Campbell MD PROCEDURE: CT ANGIO CHEST PE PROTOCOL INDICATIONS: PE suspected TECHNIQUE: After the administration of intravenous contrast, 2 mm thick sections acquired from the pulmonary apices to the posterior costophrenic angles. MIP reformats of the arterial vasculature were utilized. For radiation dose reduction, the following was used: automated exposure control, adjustment of mA and/or kV according to patient size. COMPARISON: [facility], CT, CT ANGIO CHEST PE PROTOCOL, 09/14/2023, 11:46. FINDINGS: Image quality: Diagnostic. Pulmonary arteries: Pulmonary arteries are normal in size, and demonstrate no intraluminal filling defects to suggest central pulmonary embolism. Lower Neck: No enlarged lymph nodes. Thyroid: No thyroid nodules which require sonographic follow up, per consensus guidelines. Axillae: No enlarged lymph nodes. Chest Wall: Unremarkable. Bones: Unremarkable. Lungs and Pleura: Advanced bullous pulmonary emphysema. Left upper lobe lingular and left lower lobe pulmonary nodules. Lingular lesion measures 1.8 x 1.4 cm previously 1.2 by 1.1 cm Heart: Heart size is normal. No pericardial effusion. Thoracic Vessels: No aortic aneurysm. Right sided Port-A-Cath in place Mediastinum and Telma: Mediastinal and bilateral hilar adenopathy measures up to 2.8 cm on the left. Esophagus: No wall thickening. No hiatal hernia. Upper Abdomen: Visualized upper abdomen solid organs and bowel loops appear normal. IMPRESSION: No pulmonary embolus. Left lower lobe and lingular pulmonary nodules associated with hilar and mediastinal adenopathy, increased from the prior Advanced bullous pulmonary emphysema Approved by: Hamzah Jonas M.D. on 04/08/2024 at 12:43 ECG Data Interpretation: ECG shows sinus rhythm at 94 there is a nonspecific ST segment changes no acute ST elevation MDM Narrative Medical decision making narrative: 60-year-old male with a history of COPD and lung cancer for kidney with shortness of breath and increased oxygen requirement. Differential diagnosis includes pneumonia, viral infection, COPD exacerbation without infection, heart failure, pulmonary embolism. While he did have a mildly elevated proBNP, he has not hypertensive and he responded well to nebulized bronchodilators and steroids. He does have a mild leukocytosis and increased cough, I think it is possible that there is a bacterial component to this presentation. Additionally, he tested positive for a non COVID coronavirus. At the conclusion of treatment, we discussed admission versus discharge to home. Patient preferred discharge. I think it is reasonable to attempt as discharge as he has essentially returned to his baseline respiratory status by his report and oxygen saturations are maintained on his baseline 3 L. he will continue his albuterol as needed at home, additionally, I started him on a steroid taper and a 7 day course of doxycycline. Indications for return to the emergency department are reviewed. Discharge Plan Departure Patient Disposition: Home Clinical Impression: Acute exacerbation of chronic obstructive pulmonary disease (COPD) Activity Restrictions/Additional Instructions: Today, we are treating you for increased shortness of breath associated with an exacerbation of your chronic obstructive pulmonary disease. Continue with your home breathing treatments. I have adjusted your prednisone dose up to 60 mg a day for the next 3 days and then it will taper as prescribed. Take the prescribed doxycycline twice a day for a week. If you are having increasing shortness of breath fevers chest pain or other acute symptoms return to the emergency department. Make an appointment with your primary care provider soon for a recheck. Prescriptions: New prednisone 10 mg tablet 10 mg PO DIRECTED Qty: 47 0RF Rx Instructions: Take 6 tablets (60 mg) daily for 3 days, then take 5 tablets (50 mg) daily for 2 days then take 4 tablets (40 mg) daily for 2 days then take 3 tablets (30 mg) daily for 2 days then take 2 tablets (20 mg) daily for 2 days then take 1 tablet (10 mg) daily for 1 day and then resume your normal previous dosing of prednisone. doxycycline hyclate 100 mg capsule 100 mg PO BID 7 Days Qty: 14 0RF No Action oxycodone 10 mg tablet 10 mg PO Q6H PRN (Reason: Pain, Moderate) amlodipine 5 mg tablet 5 mg PO DAILY Qty: 90 2RF lisinopril 20 mg tablet 20 mg PO DAILY Qty: 90 2RF ipratropium bromide 0.02 % solution 2.5 ml inhalation Q6H MDD 10mL PRN (Reason: shortness of breath or wheezing) Qty: 900 3RF carboplatin 150 mg recon soln 600 mg IV Q3W dexamethasone 4 mg tablet 4 mg PO DAILY potassium chloride 10 mEq packet 10 meq PO BID aspirin 81 mg Tablet,Delayed Release (Dr/Ec) 81 mg PO DAILY folic acid 1 mg Tablet 2 mg PO DAILY Rx Instructions: Take 1 tablet (1 mg total) by mouth daily initiate one week prior to prmetrexed chemotherapy and continue for 3 weeks after last dose of premtrexed. famotidine 20 mg Tablet 20 mg PO BEDTIME Qty: 90 0RF Rx Instructions: 1 tab at bedtime to protect stomach while taking steroids ondansetron 8 mg tablet,disintegrating 8 mg PO 3XD prochlorperazine maleate 10 mg tablet 10 mg PO PRN PRN (Reason: Nausea) prednisone 5 mg tablet 5 mg PO DAILY Patient Comments: [NO ORIGINAL SIG] Stiolto Respimat 2.5-2.5 mcg/actuation mist 2 puff inhalation DAILY Qty: 4 9RF albuterol sulfate 2.5 mg /3 mL (0.083 %) solution for nebulization 2.5 mg inhalation Q4-6H PRN (Reason: shortness of breath or wheezing) Qty: 180 9RF Referrals: Bill Mijares MD [Primary Care Provider] - Stand Alone Forms: Patient Portal/API/Survey
[2024-04-08 12:54] LABS: INR 1.1 (0.9-1.3); Prothrombin Time 12.4 SECONDS (9.4-12.5)
[2024-04-08 12:56] LABS: Base Excess VBG 6.4 mmol/L (0-4); HCO3 VBG 33 mmol/L (24-28); Oxygen Saturation VBG 79 % (70-75); PCO2 VBG 50.7 mmHg (45-50); PO2 VBG 43 mmHg (35-45); Total CO2 VBG 32 mmol/L (24-29); pH VBG 7.42 (7.33-7.43)
[2024-04-08] MEDS: predniSONE 20 MG TABLET 60 MG PO (12:56)
[2024-04-08 12:59] LABS: Alanine Aminotransferase 40 IU/L (<50); Albumin 3.6 g/dL (3.5-5.0); Albumin Globulin Ratio 1.2 (1.0-2.8); Alkaline Phosphatase 99 U/L (38-126); Aspartate Aminotransferase 45 IU/L (17-59); BUN Creatinine Ratio 38.3 (6-22); Bilirubin Total 0.9 mg/dL (0.2-1.3); Blood Urea Nitrogen 31 mg/dL (9-20); Calcium 8.9 mg/dL (8.4-10.2); Carbon Dioxide 33 mmol/L (22-32); Chloride 97 mmol/L (98-107); Estimated Glomerular Filt Rate > 60 mL/min (>60); Globulin 2.9 g/dL (1.7-4.1); Glucose 100 mg/dL (80-110); HEMOLYSIS < 15 (0-50); Lactate (Lactic Acid) 0.8 mmol/L (0.7-2.1); Potassium 4.4 mmol/L (3.4-5.1); Sodium 135 mmol/L (137-145); Total Protein 6.5 g/dL (6.3-8.2)
[2024-04-08 13:11] LABS: NT-proBNP (BNP-Adult 18+) 533 pg/mL (<125); Troponin I < 0.012 ng/mL (0.01-0.034)
[2024-04-08 13:43] LABS: Adenovirus Not Detected (Not Detect); B. parapertussis Not Detected (Not Detecte); Bordetella pertussis Not Detected (Not Detect); Chlamydophila pneumoniae Not Detected (Not Detect); Coronavirus 229E Not Detected (Not Detect); Coronavirus HKU1 Not Detected (Not Detect); Coronavirus NL 63 Not Detected (Not Detect); Coronavirus OC43 Detected (Not Detect); Human Metapneumovirus Not Detected (Not Detect); Human Rhinovirus/Enterovirus Not Detected (Not Detect); Influenza A Not Detected (Not Detect); Influenza B Not Detected (Not Detect); Mycoplasma pneumoniae Not Detected (Not Detect); Parainfluenza Virus 1 Not Detected (Not Detect); Parainfluenza Virus 2 Not Detected (Not Detect); Parainfluenza Virus 3 Not Detected (Not Detect); Parainfluenza Virus 4 Not Detected (Not Detect); Respiratory Syncytial Virus Not Detected (Not Detect); SARS- CoV-2 Not Detected (Not Detecte)
[2024-04-08] MEDS: DOXYCYCLINE HYCLATE 100 MG TABLET PO (16:11)
== END 2024-04-08 16:20 | disposition home or self-care (01) ==
PROVIDERS: Emergency Medicine; Emergency Provider Emergency Medicine; Family Provider Family Medicine; PCP Family Medicine
DX: J44.1 Chronic obstructive pulmonary disease with (acute) exacerbation (principal); C34.90 Malignant neoplasm of unspecified part of unspecified bronchus or lung
CPT/HCPCS: 36415; 71045; 71275; 80053; 82805; 83605; 83880; 84484; 85025; 85610; 87633; 93005; 94640; 99285; J7613; Q9967

== ENCOUNTER 2024-09-24 14:15 | Outpatient (RCR) | payer OTHER, SELFPAY ==
[2024-03-05 16:13] VITALS: BMI 17.8
== END 2024-09-24 16:15 ==
LOC: PUL 14:15
PROVIDERS: Family Provider Family Medicine; PCP Family Medicine; Referring Provider Family Medicine; Visit Provider Family Medicine
DX: C34.90 Malignant neoplasm of unspecified part of unspecified bronchus or lung (principal); J44.9 Chronic obstructive pulmonary disease, unspecified; J96.10 Chronic respiratory failure, unspecified whether with hypoxia or hypercapnia
CPT/HCPCS: 94626

== ENCOUNTER 2024-11-25 21:04 | Emergency (ER) | payer OTHER, SELFPAY ==
[2024-09-29 01:51] VITALS: BMI 20.7
[2024-10-01 00:11] VITALS: PULSE 93; RESP 33; O2SAT 95
[2024-11-25] VITALS (14 sets, daily range): BP systolic 132–167; BP diastolic 72–98; PULSE 82–102; RESP 22–32; TEMP 35.7–36.4; O2SAT 88–97
--- NOTE | 2024-11-25 21:14 | DI.RAD.S_ITS ---
PROCEDURE: XR CHEST 1V INDICATIONS: sob TECHNIQUE: One view of the chest was acquired. COMPARISON: [facility], CT, CT ANGIO CHEST PE PROTOCOL, 09/29/2024, 0:32. [facility], CT, CT AYALA, 11/12/2024, 9:59. [facility], CR, XR CHEST 1V, 09/30/2024, 8:12. [facility], CR, XR CHEST 1V, 09/30/2024, 0:56. FINDINGS: Surgical changes and devices: Right-sided port with the catheter tip at the middle 3rd of the SVC. Lungs and pleura: Left apical pneumothorax measuring 5.1 cm. Left lung central medial opacity. Trace left pleural effusion. Mediastinum: Mediastinal contours appear similar. Heart size is within normal limits. Bones and chest wall: No suspicious bony lesions. Overlying soft tissues appear unremarkable. IMPRESSION: 1. Left pneumothorax small to moderate. 2. Left lung opacity is most likely collapsed lung. Pneumonia or worsening malignancy are in the differential diagnosis. Comment: Findings were discussed with Jaime Koenig at 10:26 p.m. Dictated by: James Rose M.D. on 11/25/2024 at 22:21 Approved by: James Rose M.D. on 11/25/2024 at 22:28
--- NOTE | 2024-11-25 21:15 | PC.NURSE ---
statesshe was going most of the day but the relative that was with the pt stated that he had become increasingly more confused over the day, states for the last few days he has been mildly confused, texting people but the texts do not make any sense, pt has been having trouble operating the remote for the tv, at present pt thrashing about on the stretcher continuously trying to get up, speech is mumbled, pt seems disoriented, not able to follow commands, at bedside attempting to orient pt,
--- NOTE | 2024-11-25 21:16 | EKG_ITS ---
[facility] [address] [place] [address] Test Date: 2024-11-25 Pat Name: Daryl Peña Department: [facility] Room: Gender: Male [employer]: : [id number] Requested By: Order Number: [id number] Reading MD: Jaime Hyatt MD Measurements Intervals [place] Rate: 92 P: 36 IN: 132 QRS: 74 QRSD: 74 T: 79 QT: 354 QTc: 437 Interpretive Statements Normal sinus rhythm Electronically Signed On 11-25-2024 21:52:42 PDT by Jaime Hyatt MD
--- NOTE | 2024-11-25 21:17 | DI.CT.S_ITS ---
PROCEDURE: CT HEAD/BRAIN WO CON INDICATIONS: Altered mental status TECHNIQUE: Noncontrast 4.5 mm thick angled axial sections acquired from the foramen magnum to the vertex, with coronal and sagittal reformats. For radiation dose reduction, the following was used: automated exposure control, adjustment of mA and/or kV according to patient size. COMPARISON: [facility], [place], PET NECK TO MID THIGH, 09/13/2024, 10:27. FINDINGS: Image quality: Fair. CSF spaces: Basal cisterns are patent. No extra-axial fluid collections. Ventricles are not significantly changed. Brain: No midline shift. No area of hypodensity in a large vascular distribution to suggest acute infarction. Periventricular hypodensity consistent with chronic microvascular ischemic change. Age-related parenchymal loss. Left basal ganglia lesion measuring 3 cm, (07/28). There are persistent hyperdense blood products. There is effacement of the anterior horn of the left lateral ventricle. Smaller metastatic lesion seen on prior MRI are not well appreciated. Skull and face: Calvarium and visualized facial bones are intact, without suspicious lesions. Sinuses: Visualized sinuses and mastoids are clear. IMPRESSION: No significant interval change appreciated. Left basal ganglia hemorrhagic metastasis measuring 3 cm. Effacement of the left anterior horn. Dictated by: James Rose M.D. on 11/26/2024 at 2:01 Approved by: Jmaes Rose M.D. on 11/26/2024 at 2:08
--- NOTE | 2024-11-25 21:26 | ED.WEAKNESS ---
HPI - Weakness General Chief complaint: Altered Mental Status Stated complaint: AMS Time Seen by Provider: 11/25/24 21:06 History of Present Illness HPI Narrative: 69-year-old gentleman history of COPD on 2.5 L O2, metastatic lung cancer on chemotherapy and also recently radiation, hypertension, anxiety, adrenal insufficiency, presents with altered mental status texting people in the middle of the night making no sense with his text messages and trying to operate the remote control, agitated, and acting confused for the past 3 days getting worse. Other than what is stated 14 point review of system is negative. Related Data Home Medications ?Medication ?Instructions ?Recorded ?Confirmed folic acid 1 mg tablet 2 mg PO DAILY 04/27/18 10/15/24 oxycodone 10 mg tablet 10 mg PO Q6H PRN Pain, Moderate 05/06/23 10/15/24 ondansetron 8 mg disintegrating 8 mg PO 3XD PRN nausea and vomiting 09/14/23 10/15/24 tablet carboplatin 150 mg intravenous 600 mg IV Q3W 11/28/23 10/15/24 solution dexamethasone 4 mg tablet 4 mg PO DAILY 11/28/23 10/15/24 lorazepam 0.5 mg tablet 0.5 mg PO Q6H PRN anxiety 09/29/24 10/15/24 Previous Rx's ?Medication ?Instructions ?Recorded famotidine 20 mg tablet 20 mg PO BEDTIME GI prophalyxis 06/01/22 #90 tabs ipratropium bromide 0.02 % 2.5 ml inhalation Q6H PRN 06/01/24 solution for inhalation shortness of breath or wheezing #900 mL albuterol sulfate 2.5 mg/3 mL 2.5 mg (3 mL) inhalation Q4-6H PRN 09/18/24 (0.083 %) solution for nebulization shortness of breath or wheezing #180 mL amlodipine 5 mg tablet 5 mg PO DAILY #90 tabs 09/18/24 lisinopril 20 mg tablet 20 mg PO DAILY #90 tabs 09/18/24 albuterol sulfate 90 mcg/actuation 2 puff inhalation Q4-6H PRN 09/20/24 aerosol inhaler shortness of breath or wheezing #8 grams levofloxacin 500 mg tablet 500 mg PO DAILY #4 tabs 10/04/24 prednisone 20 mg tablet 20 mg PO BID #20 tabs 10/04/24 tiotropium 2.5 mcg-olodaterol 2.5 2 puff inhalation DAILY #4 grams 10/11/24 mcg/actuation mist for inhalation (Stiolto Respimat) nystatin 100,000 unit/mL oral See Rx Instructions PO QID #473 mL 10/15/24 suspension Allergies Allergy/AdvReac Type Severity Reaction Status Date / Time zolpidem (From Ambien) AdvReac Intermediate Nausea Verified 11/25/24 21:22 Review of Systems Review of Systems ROS Unobtainable: All systems reviewed & are unremarkable except as noted in HPI and below Patient History Medical History (Updated 11/26/24 @ 02:55 by Jaime Koenig DO) Bilateral hearing loss Herniated nucleus pulposus, L4-5 Lumbar spinal stenosis History of colon cancer in adulthood (~2017) Chronic right hip pain Pain of right lower extremity Lower back pain Esophagitis (10/28/16) Atrial fibrillation (04/2014) Lung cancer (04/2014) Back pain Frequent UTI Surgical History History of esophagogastroduodenoscopy (EGD) (10/20/16) Status post colonoscopy (10/20/16) Status post hemorrhoidectomy (07/02/08) Status post biopsy (04/2014) Social History household members: spouse Smoking Status: Never smoker Tobacco: How many years used: 50 alcohol intake: former substance use type: does not use Exam Narrative Exam Narrative: GENERAL: [69year old patient appears stated age. Well-developed patient, in mild distress. HEAD: Atraumatic. Normocephalic. EYES: Pupils equal round and reactive. Extraocular motions intact. No scleral icterus. No injection or drainage. ENT: Nose without bleeding, purulent drainage. Throat without erythema, tonsillar hypertrophy or exudate. Airway patent. NECK: Trachea midline. Non tender CARDIOVASCULAR: Regular rate and rhythm without murmurs, gallops, or rubs. RESPIRATORY: Clear to auscultation. Breath sounds equal bilaterally. No wheezes, rales, or rhonchi. GASTROINTESTINAL: Abdomen soft, non-tender, nondistended. EXTREMITIES: Trace rafael or joint tenderness. BACK: Nontender without deformity or crepitance. No flank tenderness. NEURO: AOx1. SKIN: No rash or erythema of visible areas Initial Vital Signs Initial Vital Signs: Vital Signs Temperature 97.6 F 11/25/24 21:07 Pulse Rate 102 H 11/25/24 21:07 Respiratory Rate 22 11/25/24 21:07 Blood Pressure 161/81 H 11/25/24 21:07 Pulse Oximetry 90 L 11/25/24 21:07 Oxygen Delivery Method Nasal Cannula 11/25/24 21:07 Oxygen Flow Rate 3 11/25/24 21:07 Course Orders Ordered: Discontinued Medications Diazepam (Diazepam 10 Mg/2 Ml Syringe) 2 mg IV NOW ONE Stop: 11/25/24 23:37 Last Admin: 11/25/24 23:45 Dose: 2 mg Documented By: Sodium Chloride (Normal Saline 0.9%) 1,000 mls @ 1,000 mls/hr IV BOLUS ONE Stop: 11/25/24 22:15 Last Admin: 11/25/24 21:30 Dose: Not Given Documented By: AMMY Lactated Ringer's (Lactated Ringers) 1,000 mls @ 1,000 mls/hr IV BOLUS ONE Stop: 11/25/24 22:17 Last Infusion: 11/25/24 22:35 Dose: Infused Documented By: Admin: 11/25/24 22:02 Dose: 1,000 mls/hr Documented By: AMMY Ceftriaxone Sodium 2,000 mg/ (Sodium Chloride) 100 mls @ 200 mls/hr IV NOW ONE Stop: 11/25/24 22:07 Last Infusion: 11/25/24 22:23 Dose: Infused Documented By: Admin: 11/25/24 22:11 Dose: 200 mls/hr Documented By: AMMY Levofloxacin (Levaquin) 750 mg in 150 mls @ 100 mls/hr IV NOW ONE Stop: 11/26/24 03:56 Last Admin: 11/26/24 02:55 Dose: Not Given Documented By: AMMY Azithromycin 500 mg/ Dextrose 250 mls @ 250 mls/hr IV NOW ONE Stop: 11/26/24 02:29 Last Infusion: 11/26/24 03:58 Dose: Infused Documented By: Admin: 11/26/24 02:41 Dose: 250 mls/hr Documented By: AMMY Lidocaine HCl (Lidocaine 2% (Glydo) 6 Ml Gel) 6 ml TOP NOW ONE Stop: 11/25/24 21:27 Last Admin: 11/25/24 21:28 Dose: 6 ml Documented By: AMMY Lidocaine/Epinephrine (Lidocaine 1% W/Epi 10ml) 10 ml INJ INTRA-OP ONE Stop: 11/25/24 23:26 Last Admin: 11/25/24 23:43 Dose: 10 ml Documented By: Lidocaine/Epinephrine (Lidocaine 1% W/Epi 10ml) 10 ml INJ INTRA-OP ONE Stop: 11/25/24 23:29 Last Admin: 11/25/24 23:43 Dose: 10 ml Documented By: Midazolam HCl (Midazolam 2 Mg/2 Ml Vial) 2 mg IV NOW ONE Stop: 11/25/24 22:06 Last Admin: 11/25/24 22:08 Dose: 2 mg Documented By: AMMY Midazolam HCl (Midazolam 2 Mg/2 Ml Vial) 2 mg IV NOW ONE Stop: 11/25/24 22:19 Last Admin: 11/25/24 22:23 Dose: 2 mg Documented By: AMMY Midazolam HCl (Midazolam 2 Mg/2 Ml Vial) 4 mg IV NOW ONE Stop: 11/26/24 00:30 Last Admin: 11/26/24 01:50 Dose: 4 mg Documented By: AMMY Midazolam HCl (Midazolam 5 Mg/Ml Vial) 4 mg IV NOW ONE Stop: 11/26/24 03:27 Last Admin: 11/26/24 03:29 Dose: 4 mg Documented By: AMMY Morphine Sulfate (Morphine 4 Mg/Ml Inj) 4 mg IV NOW ONE Stop: 11/25/24 23:37 Last Admin: 11/25/24 23:45 Dose: 4 mg Documented By: Morphine Sulfate (Morphine 2 Mg/Ml Inj) 1 mg IV Q2HR PRN PRN Reason: Pain, Moderate (4-6) Ondansetron HCl (Ondansetron 4 Mg/2 Ml Inj) 4 mg IV NOW PRN PRN Reason: Nausea And Vomiting Ondansetron HCl (Ondansetron 4 Mg Odt) 4 mg PO NOW PRN PRN Reason: Nausea And Vomiting Vital Signs Vital signs: Vital Signs - 8 hr 11/25/24 21:07 11/25/24 21:09 11/25/24 21:10 Temperature 97.6 F Pulse Rate 102 H Respiratory Rate 22 Blood Pressure 161/81 H 161/81 H Pulse Oximetry 90 L 94 Oxygen Delivery Method Nasal Cannula Oxygen Flow Rate 3 11/25/24 21:10 11/25/24 21:30 11/25/24 21:30 Temperature Pulse Rate 100 H 92 H Respiratory Rate 28 H Blood Pressure 149/88 H Pulse Oximetry 89 L 93 Oxygen Delivery Method Nasal Cannula Oxygen Flow Rate 2 11/25/24 22:00 11/25/24 22:00 11/25/24 22:30 Temperature 96.8 F L 96.4 F L Pulse Rate 96 H 86 Respiratory Rate 31 H 27 H Blood Pressure 167/98 H Pulse Oximetry 94 93 Oxygen Delivery Method Oxygen Flow Rate 11/25/24 22:31 11/25/24 22:31 11/25/24 23:00 Temperature 96.6 F L 96.4 F L Pulse Rate 91 H 88 Respiratory Rate 27 H 30 H Blood Pressure 145/78 H Pulse Oximetry 92 88 L Oxygen Delivery Method Oxygen Flow Rate 11/25/24 23:01 11/25/24 23:01 11/25/24 23:30 Temperature 96.4 F L 96.4 F L Pulse Rate 87 96 H Respiratory Rate 31 H 32 H Blood Pressure 136/84 Pulse Oximetry 89 L 92 Oxygen Delivery Method Oxygen Flow Rate 11/25/24 23:31 11/25/24 23:31 11/25/24 23:42 Temperature 96.4 F L 96.4 F L Pulse Rate 94 H 84 Respiratory Rate 30 H 26 H Blood Pressure 155/94 H Pulse Oximetry 91 89 L Oxygen Delivery Method Oxygen Flow Rate 11/25/24 23:42 11/25/24 23:45 11/25/24 23:45 Temperature 96.3 F L Pulse Rate 82 Respiratory Rate 26 H Blood Pressure 139/84 148/89 H Pulse Oximetry 97 Oxygen Delivery Method Oxygen Flow Rate 11/25/24 23:50 11/25/24 23:50 11/26/24 00:00 Temperature 96.3 F L 96.3 F L Pulse Rate 86 89 Respiratory Rate 31 H 27 H Blood Pressure 132/72 Pulse Oximetry 97 97 Oxygen Delivery Method Oxygen Flow Rate 11/26/24 00:00 11/26/24 00:30 11/26/24 00:30 Temperature 95.9 F L Pulse Rate 87 Respiratory Rate 25 H Blood Pressure 133/78 139/80 Pulse Oximetry 95 Oxygen Delivery Method Oxygen Flow Rate 11/26/24 01:00 11/26/24 01:02 11/26/24 01:02 Temperature 95.4 F L 95.4 F L Pulse Rate 87 85 Respiratory Rate 24 23 Blood Pressure 134/78 Pulse Oximetry 96 96 Oxygen Delivery Method Oxygen Flow Rate 11/26/24 01:30 11/26/24 01:30 Temperature 95.2 F L Pulse Rate 87 Respiratory Rate 28 H Blood Pressure 133/75 Pulse Oximetry 95 Oxygen Delivery Method Oxygen Flow Rate MDM - Weakness Lab Data 11/25/24 21:15 11/25/24 21:15 Labs: Lab Results 11/25/24 11/25/24 11/25/24 Range/Units 21:15 21:40 21:50 WBC 16.9 H (4.5-11.0) X10^3/uL RBC 3.55 L (4.5-5.9) X10^6/uL Hgb 10.9 L (13.5-17.5) g/dL Hct 33.1 L (41-53) % MCV 93.3 (80-100) fL MCH 30.5 (26-34) PG MCHC 32.7 (30-36) % RDW 19.5 H (11.6-14.8) % Plt Count 203 (150-400) X10^3/uL Neut % (Auto) 93.6 H (50-75) % Lymph % (Auto) 2.9 L (25-40) % [place] % (Auto) 2.8 L (3-14) % Eos % (Auto) 0.0 L (2-4) % Baso % (Auto) 0.7 (0-2) % Neut # (Auto) 47526 H (2545-7930) /uL Lymph # (Auto) 500 L (5808-0877) /uL [place] # (Auto) 500 (0-900) /uL Eos # (Auto) 0 (0-450) /uL Baso # (Auto) 100 (0-100) /uL PT 10.9 (9.4-12.5) SECONDS INR 1.0 (0.9-1.3) APTT 25 L (25.1-36.5) SECONDS VBG pH (7.33-7.43) VBG pCO2 (45-50) mmHg VBG pO2 (35-45) mmHg VBG HCO3 (24-28) mmol/L VBG Total CO2 (24-29) mmol/L VBG O2 Saturation (70-75) % VBG Base Excess (0-4) mmol/L FiO2 % % Sodium 131 L (137-145) mmol/L Potassium 4.1 (3.4-5.1) mmol/L Chloride 101 (98-107) mmol/L Carbon Dioxide 27 (22-32) mmol/L BUN 19 (9-20) mg/dL Creatinine 0.52 L (0.66-1.25) mg/dL Estimated GFR > 60 (>60) mL/min BUN/Creatinine Ratio 36.5 H (6-22) Glucose 126 H (70-99) mg/dL Lactate 1.9 (0.7-2.1) mmol/L Calcium 7.7 L (8.4-10.2) mg/dL Total Bilirubin 0.5 (0.2-1.3) mg/dL AST 35 (17-59) IU/L ALT 32 (<50) IU/L Alkaline Phosphatase 183 H (38-126) U/L Total Protein 5.4 L (6.3-8.2) g/dL Albumin 2.8 L (3.5-5.0) g/dL Globulin 2.6 (1.7-4.1) g/dL Albumin/Globulin Ratio 1.1 (1.0-2.8) Lipase 44 (23-300) U/L Procalcitonin 0.455 (<0.5) ng/mL Urine Color Yellow Urine Appearance Clear Urine pH 6.0 (4.5-8.0) Ur Specific [place] 1.015 (1.000-1.035) Urine Protein Negative (Negative) Urine Glucose (UA) Negative (Negative) g/dL Urine Ketones Negative (NEGATIVE) Urine Occult Blood Negative (Negative) Urine Nitrate Negative (Negative) Urine Bilirubin Negative (NEGATIVE) Urine Urobilinogen 0.2 (0.2) E.U./dL Ur Leukocyte Esterase Negative (NEGATIVE) Urine RBC None seen (0-5/HPF) Urine WBC None seen (0-5/HPF) Ur Squamous Epith Cells None seen (0-5/HPF) Urine Bacteria None seen (None) Ur Culture Indicated? Cult not indicated Vol Urine Centrifuged 10ml (spun) SARS-CoV-2 (PCR) Negative (Negative) Influenza A (RT-PCR) Flu a negative (NEGATIVE) Influenza B (RT-PCR) Flu b negative (NEGATIVE) RSV (PCR) Negative (Negative) 11/25/24 Range/Units 21:51 WBC (4.5-11.0) X10^3/uL RBC (4.5-5.9) X10^6/uL Hgb (13.5-17.5) g/dL Hct (41-53) % MCV (80-100) fL MCH (26-34) PG MCHC (30-36) % RDW (11.6-14.8) % Plt Count (150-400) X10^3/uL Neut % (Auto) (50-75) % Lymph % (Auto) (25-40) % [place] % (Auto) (3-14) % Eos % (Auto) (2-4) % Baso % (Auto) (0-2) % Neut # (Auto) (2897-7537) /uL Lymph # (Auto) (4649-6868) /uL [place] # (Auto) (0-900) /uL Eos # (Auto) (0-450) /uL Baso # (Auto) (0-100) /uL PT (9.4-12.5) SECONDS INR (0.9-1.3) APTT (25.1-36.5) SECONDS VBG pH 7.40 (7.33-7.43) VBG pCO2 48.3 (45-50) mmHg VBG pO2 37 (35-45) mmHg VBG HCO3 30 H (24-28) mmol/L VBG Total CO2 29 (24-29) mmol/L VBG O2 Saturation 70 (70-75) % VBG Base Excess 4.6 H (0-4) mmol/L FiO2 % 45.0 % % Sodium (137-145) mmol/L Potassium (3.4-5.1) mmol/L Chloride (98-107) mmol/L Carbon Dioxide (22-32) mmol/L BUN (9-20) mg/dL Creatinine (0.66-1.25) mg/dL Estimated GFR (>60) mL/min BUN/Creatinine Ratio (6-22) Glucose (70-99) mg/dL Lactate (0.7-2.1) mmol/L Calcium (8.4-10.2) mg/dL Total Bilirubin (0.2-1.3) mg/dL AST (17-59) IU/L ALT (<50) IU/L Alkaline Phosphatase (38-126) U/L Total Protein (6.3-8.2) g/dL Albumin (3.5-5.0) g/dL Globulin (1.7-4.1) g/dL Albumin/Globulin Ratio (1.0-2.8) Lipase (23-300) U/L Procalcitonin (<0.5) ng/mL Urine Color Urine Appearance Urine pH (4.5-8.0) Ur Specific [place] (1.000-1.035) Urine Protein (Negative) Urine Glucose (UA) (Negative) g/dL Urine Ketones (NEGATIVE) Urine Occult Blood (Negative) Urine Nitrate (Negative) Urine Bilirubin (NEGATIVE) Urine Urobilinogen (0.2) E.U./dL Ur Leukocyte Esterase (NEGATIVE) Urine RBC (0-5/HPF) Urine WBC (0-5/HPF) Ur Squamous Epith Cells (0-5/HPF) Urine Bacteria (None) Ur Culture Indicated? Vol Urine Centrifuged SARS-CoV-2 (PCR) (Negative) Influenza A (RT-PCR) (NEGATIVE) Influenza B (RT-PCR) (NEGATIVE) RSV (PCR) (Negative) Imaging Data Chest x-ray: Radiologist Impression: [address] [address] XRay Report Signed Patient: Daryl Peña MR#: [id number] : 1955 Acct:[id number] Age/Sex: 69 / M Date of Service: 11/25/24 Loc: ED Accession Number: [id number] Procedure: XR chest 1V Ordering Provider: Jaime Koenig D.O. PROCEDURE: XR CHEST 1V INDICATIONS: sob TECHNIQUE: One view of the chest was acquired. COMPARISON: [facility], CT, CT ANGIO CHEST PE PROTOCOL, 09/29/2024, 0:32. [facility], CT, CT AYALA, 11/12/2024, 9:59. [facility], CR, XR CHEST 1V, 09/30/2024, 8:12. [facility], CR, XR CHEST 1V, 09/30/2024, 0:56. FINDINGS: Surgical changes and devices: Right-sided port with the catheter tip at the middle 3rd of the SVC. Lungs and pleura: Left apical pneumothorax measuring 5.1 cm. Left lung central medial opacity. Trace left pleural effusion. Mediastinum: Mediastinal contours appear similar. Heart size is within normal limits. Bones and chest wall: No suspicious bony lesions. Overlying soft tissues appear unremarkable. IMPRESSION: 1. Left pneumothorax small to moderate. 2. Left lung opacity is most likely collapsed lung. Pneumonia or worsening malignancy are in the differential diagnosis. Comment: Findings were discussed with Jaime Koenig at 10:26 p.m. Extremity x-ray #1: Radiologist Impression: [address] [address] XRay Report Signed Patient: Daryl Peña MR#: [id number] : 1955 Acct:[id number] Age/Sex: 69 / M Date of Service: 11/25/24 Loc: ED Accession Number: [id number] Procedure: XR chest 1V Ordering Provider: Taiwo House D.O. PROCEDURE: XR CHEST 1V INDICATIONS: Verify chest tube placement left chest TECHNIQUE: One view of the chest was acquired. COMPARISON: [facility], , XR CHEST 1V, 11/25/2024, 21:32. [facility], , XR CHEST 1V, 09/30/2024, 8:12. FINDINGS: Surgical changes and devices: Left-sided chest tube with the tip at the apex, new. Right-sided port with the catheter tip at the middle 3rd of the SVC. Lungs and pleura: Left pneumothorax is no longer seen. There is decreased density in the left hilar region. Re-expansion of lung. Hazy opacity in the left lung. Small left pleural effusion. Mediastinum: Mediastinal contours appear normal. Heart size is normal. Bones and chest wall: No suspicious bony lesions. Scant left subcutaneous emphysema. IMPRESSION: Left-sided chest tube with the tip at the apex. No pneumothorax is appreciated. Improved aeration of the left lung. CT scan - head: Radiologist Impression: [address] [address] [address] Scan Report Signed Patient: Daryl Peña MR#: [id number] : 1955 Acct:[id number] Age/Sex: 69 / M Date of Service: 11/25/24 Loc: ED Accession Number: [id number] Procedure: CT head/brain wo con Ordering Provider: Jaime Koenig D.O. PROCEDURE: CT HEAD/BRAIN WO CON INDICATIONS: Altered mental status TECHNIQUE: Noncontrast 4.5 mm thick angled axial sections acquired from the foramen magnum to the vertex, with coronal and sagittal reformats. For radiation dose reduction, the following was used: automated exposure control, adjustment of mA and/or kV according to patient size. COMPARISON: [place], [place], PET NECK TO MID THIGH, 09/13/2024, 10:27. FINDINGS: Image quality: Fair. CSF spaces: Basal cisterns are patent. No extra-axial fluid collections. Ventricles are not significantly changed. Brain: No midline shift. No area of hypodensity in a large vascular distribution to suggest acute infarction. Periventricular hypodensity consistent with chronic microvascular ischemic change. Age-related parenchymal loss. Left basal ganglia lesion measuring 3 cm, (07/28). There are persistent hyperdense blood products. There is effacement of the anterior horn of the left lateral ventricle. Smaller metastatic lesion seen on prior MRI are not well appreciated. Skull and face: Calvarium and visualized facial bones are intact, without suspicious lesions. Sinuses: Visualized sinuses and mastoids are clear. IMPRESSION: No significant interval change appreciated. Left basal ganglia hemorrhagic metastasis measuring 3 cm. Effacement of the left anterior horn. Dictated by: James Rose M.D. on 11/26/2024 at 2:01 Approved by: James Rose M.D. on 11/26/2024 at 2:08 ECG Data Interpretation: NSR HR 92 OR 132 QRS [address]-t wave change Unchanged from 09/28/24 MDM Narrative Medical decision making narrative: All lab work, vital signs, nurse triage note, medication list, previous ER visits, and all imaging studies reviewed. Chest x-ray showed left pneumothorax [id number]. Left lung opacity is most likely collapsed lung. Pneumonia or worsening malignancy are in the differential diagnosis. WBC 16.9 hemoglobin 10.9 platelet 203 INR 1.0 VBG pH 7.4 pCO2 48.3 PO2 37 bicarb 30 base excess 4.6 sodium 131 potassium 4.1 chloride 101 CO2 27 BUN 19 creatinine 0.52 glucose 126 acid 1.9 calcium 7.7 lipase 44 procalcitonin 0.455 urine did not show any acute process COVID flu RSV negative. Chest x-ray status post chest tube placement showed left chest tube. With tip of the apex pneumothorax is appreciated. Improved aeration of the left lung. CT head showed no significant interval change appreciated. Left basal ganglia hemorrhagic metastasis measuring 3 cm. Effacement of the left anterior horn. CT chest showed no pulmonary embolus, left pneumothorax left-sided chest tube, left hilar mass, mediastinal and hilar adenopathy. Debris within the left. Mainstem bronchus . Bronchus is occluded more distally . Left upper lobe is clamped mild post obstructive pneumonia at the left lower lobe. Patient given Rocephin and Zithromax here. Pt has been accepted at [facility] - Dr.Stephan Lidia MCKEON MD Discharge Plan Departure Patient Disposition: [facility] Clinical Impression: Pneumonia Qualifiers: Pneumonia type: due to unspecified organism Laterality: left Lung location: lower lobe of lung Qualified Code(s): J18.9 - Pneumonia, unspecified organism Pneumothorax Qualifiers: Pneumothorax type: spontaneous, primary Qualified Code(s): J93.11 - Primary spontaneous pneumothorax Bleeding in brain Qualifiers: Intracerebral hemorrhage etiology: nontraumatic Cerebral hemorrhage location: cerebral hemisphere, unspecified portion Laterality: unspecified laterality Qualified Code(s): I61.2 - Nontraumatic intracerebral hemorrhage in hemisphere, unspecified Prescriptions: No Action oxycodone 10 mg tablet 10 mg PO Q6H PRN (Reason: Pain, Moderate) lisinopril 20 mg tablet 20 mg PO DAILY Qty: 90 2RF amlodipine 5 mg tablet 5 mg PO DAILY Qty: 90 2RF albuterol sulfate 2.5 mg /3 mL (0.083 %) solution for nebulization 2.5 mg inhalation Q4-6H PRN (Reason: shortness of breath or wheezing) Qty: 180 9RF albuterol sulfate 90 mcg/actuation HFA aerosol inhaler 2 puff INHALATION Q4-6H PRN (Reason: shortness of breath or wheezing) Qty: 8 1RF Stiolto Respimat 2.5-2.5 mcg/actuation mist 2 puff inhalation DAILY Qty: 4 11RF nystatin 100,000 unit/mL suspension See Rx Instructions PO QID Qty: 473 0RF Rx Instructions: 500,000 units 4 times daily; swish in the mouth and retain for as long as possible (several minutes) before swallowing. Total 7 days at a time carboplatin 150 mg recon soln 600 mg IV Q3W dexamethasone 4 mg tablet 4 mg PO DAILY ipratropium bromide 0.02 % solution 2.5 ml inhalation Q6H MDD 10mL PRN (Reason: shortness of breath or wheezing) Qty: 900 3RF folic acid 1 mg Tablet 2 mg PO DAILY Rx Instructions: Take 1 tablet (1 mg total) by mouth daily initiate one week prior to prmetrexed chemotherapy and continue for 3 weeks after last dose of premtrexed. famotidine 20 mg Tablet 20 mg PO BEDTIME Qty: 90 0RF Rx Instructions: 1 tab at bedtime to protect stomach while taking steroids ondansetron 8 mg tablet,disintegrating 8 mg PO 3XD PRN (Reason: nausea and vomiting) lorazepam 0.5 mg tablet 0.5 mg PO Q6H PRN (Reason: anxiety) prednisone 20 mg tablet 20 mg PO BID Qty: 20 0RF levofloxacin 500 mg tablet 500 mg PO DAILY Qty: 4 0RF Referrals: Bill Mijares MD [Primary Care Provider, Family Practice]
[2024-11-25] MEDS: LIDOCAINE 2% (GLYDO) 6 ML GEL TOP (21:28)
[2024-11-25 21:51] LABS: INR 1.0 (0.9-1.3); Prothrombin Time 10.9 SECONDS (9.4-12.5)
[2024-11-25 21:54] LABS: Base Excess VBG 4.6 mmol/L (0-4); HCO3 VBG 30 mmol/L (24-28); Oxygen Saturation VBG 70 % (70-75); PCO2 VBG 48.3 mmHg (45-50); PO2 VBG 37 mmHg (35-45); Total CO2 VBG 29 mmol/L (24-29); pH VBG 7.40 (7.33-7.43)
[2024-11-25 21:54] LABS: PTT Partial Thromboplastin Tim 25 SECONDS (25.1-36.5)
[2024-11-25 21:57] LABS: Alanine Aminotransferase 32 IU/L (<50); Albumin 2.8 g/dL (3.5-5.0); Albumin Globulin Ratio 1.1 (1.0-2.8); Alkaline Phosphatase 183 U/L (38-126); Blood Urea Nitrogen 19 mg/dL (9-20); Calcium 7.7 mg/dL (8.4-10.2); Carbon Dioxide 27 mmol/L (22-32); Chloride 101 mmol/L (98-107); Estimated Glomerular Filt Rate > 60 mL/min (>60); Globulin 2.6 g/dL (1.7-4.1); Glucose 126 mg/dL (70-99); HEMOLYSIS < 15 (0-50); Lactate (Lactic Acid) 1.9 mmol/L (0.7-2.1); Lipase 44 U/L (23-300); Potassium 4.1 mmol/L (3.4-5.1); Sodium 131 mmol/L (137-145); Total Protein 5.4 g/dL (6.3-8.2)
--- NOTE | 2024-11-25 22:00 | PC.NURSE ---
700 ml urine returned pt tolerated procedure well
[2024-11-25] MEDS: LACTATED RINGERS 1,000 ML 1000 ML IV (22:02)
[2024-11-25 22:07] LABS: Add Manual Diff / Slide Review NO; Hematocrit 33.1 % (41-53); Hemoglobin 10.9 g/dL (13.5-17.5); Lymphocytes Absolute Auto 500 /uL (1100-4500); Mean Corpuscular HGB Conc 32.7 % (30-36); Mean Corpuscular Hemoglobin 30.5 PG (26-34); Mean Corpuscular Volume 93.3 fL (80-100); Platelet Count 203 X10^3/uL (150-400)
[2024-11-25] MEDS: MIDAZOLAM 2 MG/2 ML VIAL IV ×2 (22:08→22:23)
[2024-11-25] MEDS: cefTRIAXone 2,000 MG in SODIUM CHLORIDE 0.9% 100 ML 200 MG IV (22:11)
[2024-11-25 22:13] LABS: Procalcitonin 0.455 ng/mL (<0.5)
[2024-11-25 22:13] LABS: Appearance Urine UA CLEAR; Bilirubin Urine UA NEGATIVE (NEGATIVE); Color Urine UA YELLOW; Glucose Urine UA NEGATIVE (Negative); Ketones Urine UA NEGATIVE (NEGATIVE); Leukocyte Esterase Urine UA NEGATIVE (NEGATIVE); Nitrite Urine UA NEGATIVE (Negative); Occult Blood Urine UA NEGATIVE (Negative); Protein Urine UA NEGATIVE (Negative); Specific Gravity Urine UA 1.015 (1.000-1.035); Urobilinogen Urine UA 0.2 E.U./dL (0.2); pH Urine UA 6.0 (4.5-8.0)
[2024-11-25 22:23] LABS: Culture Indicated Urine Cult Not Indicated
[2024-11-25 22:45] LABS: COVID-19 CEPHEID 4-PLEX PCR Negative (Negative); Influenza A - CEPHEID Flu A NEGATIVE (NEGATIVE); Influenza B - CEPHEID Flu B NEGATIVE (NEGATIVE)
[2024-11-25] MEDS: LIDOCAINE 1% W/EPI 10ML 10 ML INJ ×2 (23:43)
[2024-11-25] MEDS: MORPHINE 4 MG/ML INJ IV (23:45)
--- NOTE | 2024-11-25 23:49 | DI.RAD.S_ITS ---
PROCEDURE: XR CHEST 1V INDICATIONS: Verify chest tube placement left chest TECHNIQUE: One view of the chest was acquired. COMPARISON: [facility], CR, XR CHEST 1V, 11/25/2024, 21:32. [facility], CR, XR CHEST 1V, 09/30/2024, 8:12. FINDINGS: Surgical changes and devices: Left-sided chest tube with the tip at the apex, new. Right-sided port with the catheter tip at the middle 3rd of the SVC. Lungs and pleura: Left pneumothorax is no longer seen. There is decreased density in the left hilar region. Re-expansion of lung. Hazy opacity in the left lung. Small left pleural effusion. Mediastinum: Mediastinal contours appear normal. Heart size is normal. Bones and chest wall: No suspicious bony lesions. Scant left subcutaneous emphysema. IMPRESSION: Left-sided chest tube with the tip at the apex. No pneumothorax is appreciated. Improved aeration of the left lung. Dictated by: James Rose M.D. on 11/26/2024 at 1:11 Approved by: James Rose M.D. on 11/26/2024 at 1:13
[2024-11-26] VITALS (14 sets, daily range): BP systolic 121–139; BP diastolic 68–87; PULSE 78–96; RESP 23–46; TEMP 35–35.7; O2SAT 92–98
--- NOTE | 2024-11-26 | PM.HP.IH.1 ---
History of Present Illness History of Present Illness Date Patient Seen: 11/25/24 Time Patient Seen: 10:40 Date of Onset of Symptoms: 11/25/24 Chief complaint: AMS Narrative: Patient is a 69-year-old white male presents to the emergency room with altered mental status confusion x3 days and more agitation. On presentation was noted to have decreased SaO2 chest x-ray shows a left pneumothorax with left apical lung mass patient has a history of left lung cancer with Mets for 10 years. I was asked see the patient for placement of chest tube. The patient is confused history as per . Discussed the need for placement of left thoracostomy tube procedure risks and complications were fully explained including risk for cardiopulmonary depression infection bleeding lung injury vascular injury she understands and consents. Patient's admitting laboratory shows WBC is 16.9 hemoglobin is 10.9 hematocrit is 33.1 platelets are 203,000 PT is 10.9 INR 1.0 PTT is 25 albumin is 2.8 lactic acid level was 1.9 sodium is 131 potassium 4.1 chloride 101 bicarb is 27 BUN 19 creatinine 0.5 to random blood sugar is 126 normal LFTs alkaline phosphatase is 183 venous ABG was performed pH of 7.4 PO2 is 37 pCO2 is 48.3 bicarb is 30 SaO2 is 70%. 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 Patient family deny any other heart lungs digestive musculoskeletal neurological seizure disorder psychiatric problems risks Infectious diseases HIV or AIDS. Past surgical history: History of left lung biopsy, bronchoscopy, right chemo port, hemorrhoidectomy, colon resection with anastomosis in 2015 for colon cancer, EGD, colonoscopy done 1 month ago negative Social history: History of tobacco abuse 1 pack per day times 51 years. Ten years ago, denies any alcohol since 2015, denies any recreational drug usage. Vitals: Temperature is 97.6? pulse 102 respirations 22 BP is 161/81 SaO2 is 90% on 3 L, patient weighs 154 lb. Patient is slightly confused does not directly answer questions head is normocephalic eyes can not be evaluated some not opening eyes spontaneously nares are clear oropharyngeal cavity is in moderate repair heart regular rate and rhythm with slight tachycardia. Lungs diminished breath sounds none noted on left. Abdomen is soft nondistended no masses or peritoneal signs musculoskeletal patient is moving all extremities. Impression: Confusion x3 days with altered mental status Left spontaneous pneumothorax History of left lung cancer with Mets to the right lung and brain times 10 years treated with chemo and radiation COPD on home oxygen Anxiety AFib not on any anticoagulation Hypertension History of colon cancer treated with a colon resection in 2014 History of tobacco abuse 1 pack per day times 51 years. Ten years ago Plan: Discussed with the findings need for left chest tube procedure risks and complications were fully explained including risk for cardiopulmonary depression infection lung injury vascular injury she understands and consents we will place at bedside with sedation we will placed on Pleur-evac suction and evaluate with daily portable chest x-rays all questions were answered to 's satisfaction. [facility] Medical History (Updated 10/15/24 @ 14:27 by Bill Mijares MD) Bilateral hearing loss Herniated nucleus pulposus, L4-5 Lumbar spinal stenosis History of colon cancer in adulthood (~2017) Chronic right hip pain Pain of right lower extremity Lower back pain Esophagitis (10/28/16) Atrial fibrillation (04/2014) Lung cancer (04/2014) Back pain Frequent UTI Surgical History History of esophagogastroduodenoscopy (EGD) (10/20/16) Status post colonoscopy (10/20/16) Status post hemorrhoidectomy (07/02/08) Status post biopsy (04/2014) Social History household members: spouse Smoking Status: Never smoker Tobacco: How many years used: 50 alcohol intake: former substance use type: does not use Meds Home Medications and Allergies Home Medications ?Medication ?Instructions ?Recorded ?Confirmed ?Type folic acid 1 mg tablet 2 mg PO DAILY 04/27/18 10/15/24 History famotidine 20 mg tablet 20 mg PO BEDTIME GI prophalyxis 06/01/22 10/15/24 Rx #90 tabs oxycodone 10 mg tablet 10 mg PO Q6H PRN Pain, Moderate 05/06/23 10/15/24 History ondansetron 8 mg disintegrating 8 mg PO 3XD PRN nausea and vomiting 09/14/23 10/15/24 History tablet carboplatin 150 mg intravenous 600 mg IV Q3W 11/28/23 10/15/24 History solution dexamethasone 4 mg tablet 4 mg PO DAILY 11/28/23 10/15/24 History ipratropium bromide 0.02 % 2.5 ml inhalation Q6H PRN 06/01/24 10/15/24 Rx solution for inhalation shortness of breath or wheezing #900 mL albuterol sulfate 2.5 mg/3 mL 2.5 mg (3 mL) inhalation Q4-6H PRN 09/18/24 10/15/24 Rx (0.083 %) solution for nebulization shortness of breath or wheezing #180 mL amlodipine 5 mg tablet 5 mg PO DAILY #90 tabs 09/18/24 10/15/24 Rx lisinopril 20 mg tablet 20 mg PO DAILY #90 tabs 09/18/24 10/15/24 Rx albuterol sulfate 90 mcg/actuation 2 puff inhalation Q4-6H PRN 09/20/24 10/15/24 Rx aerosol inhaler shortness of breath or wheezing #8 grams lorazepam 0.5 mg tablet 0.5 mg PO Q6H PRN anxiety 09/29/24 10/15/24 History levofloxacin 500 mg tablet 500 mg PO DAILY #4 tabs 10/04/24 10/15/24 Rx prednisone 20 mg tablet 20 mg PO BID #20 tabs 10/04/24 10/15/24 Rx tiotropium 2.5 mcg-olodaterol 2.5 2 puff inhalation DAILY #4 grams 10/11/24 10/15/24 Rx mcg/actuation mist for inhalation (Stiolto Respimat) nystatin 100,000 unit/mL oral See Rx Instructions PO QID #473 mL 10/15/24 10/15/24 Rx suspension Allergies Allergy/AdvReac Type Severity Reaction Status Date / Time zolpidem (From Ambien) AdvReac Intermediate Nausea Verified 11/25/24 21:22 Exam Vital Signs (past 8 hours): - 11/25/24 21:07 11/25/24 21:09 11/25/24 21:10 Temperature 97.6 F Pulse Rate 102 H Respiratory Rate 22 Blood Pressure 161/81 H 161/81 H Pulse Oximetry 90 L 94 Oxygen Delivery Method Nasal Cannula Oxygen Flow Rate 3 11/25/24 21:10 11/25/24 21:30 11/25/24 21:30 Temperature Pulse Rate 100 H 92 H Respiratory Rate 28 H Blood Pressure 149/88 H Pulse Oximetry 89 L 93 Oxygen Delivery Method Nasal Cannula Oxygen Flow Rate 2 11/25/24 22:00 11/25/24 22:00 11/25/24 22:30 Temperature 96.8 F L 96.4 F L Pulse Rate 96 H 86 Respiratory Rate 31 H 27 H Blood Pressure 167/98 H Pulse Oximetry 94 93 Oxygen Delivery Method Oxygen Flow Rate 11/25/24 22:31 11/25/24 22:31 11/25/24 23:00 Temperature 96.6 F L 96.4 F L Pulse Rate 91 H 88 Respiratory Rate 27 H 30 H Blood Pressure 145/78 H Pulse Oximetry 92 88 L Oxygen Delivery Method Oxygen Flow Rate 11/25/24 23:01 11/25/24 23:01 Temperature 96.4 F L Pulse Rate 87 Respiratory Rate 31 H Blood Pressure 136/84 Pulse Oximetry 89 L Oxygen Delivery Method Oxygen Flow Rate Oxygen Delivery Method Nasal Cannula Oxygen Flow Rate 2 Objective Labs 11/25/24 21:15 11/25/24 21:15 Labs: Laboratory Results - last 24 hr 11/25/24 11/25/24 11/25/24 21:15 21:40 21:50 WBC 16.9 H RBC 3.55 L Hgb 10.9 L Hct 33.1 L MCV 93.3 MCH 30.5 MCHC 32.7 RDW 19.5 H Plt Count 203 Neut % (Auto) 93.6 H Lymph % (Auto) 2.9 L Chester % (Auto) 2.8 L Eos % (Auto) 0.0 L Baso % (Auto) 0.7 Neut # (Auto) 41808 H Lymph # (Auto) 500 L Chester # (Auto) 500 Eos # (Auto) 0 Baso # (Auto) 100 PT 10.9 INR 1.0 APTT 25 L VBG pH VBG pCO2 VBG pO2 VBG HCO3 VBG Total CO2 VBG O2 Saturation VBG Base Excess FiO2 % Sodium 131 L Potassium 4.1 Chloride 101 Carbon Dioxide 27 BUN 19 Creatinine 0.52 L Estimated GFR > 60 BUN/Creatinine Ratio 36.5 H Glucose 126 H Lactate 1.9 Calcium 7.7 L Total Bilirubin 0.5 AST 35 ALT 32 Alkaline Phosphatase 183 H Total Protein 5.4 L Albumin 2.8 L Globulin 2.6 Albumin/Globulin Ratio 1.1 Lipase 44 Procalcitonin 0.455 Urine Color Yellow Urine Appearance Clear Urine pH 6.0 Ur Specific Proctor 1.015 Urine Protein Negative Urine Glucose (UA) Negative Urine Ketones Negative Urine Occult Blood Negative Urine Nitrate Negative Urine Bilirubin Negative Urine Urobilinogen 0.2 Ur Leukocyte Esterase Negative Urine RBC None seen Urine WBC None seen Ur Squamous Epith Cells None seen Urine Bacteria None seen Ur Culture Indicated? Cult not indicated Vol Urine Centrifuged 10ml (spun) SARS-CoV-2 (PCR) Negative Influenza A (RT-PCR) Flu a negative Influenza B (RT-PCR) Flu b negative RSV (PCR) Negative 11/25/24 21:51 WBC RBC Hgb Hct MCV MCH MCHC RDW Plt Count Neut % (Auto) Lymph % (Auto) Chester % (Auto) Eos % (Auto) Baso % (Auto) Neut # (Auto) Lymph # (Auto) Chester # (Auto) Eos # (Auto) Baso # (Auto) PT INR APTT VBG pH 7.40 VBG pCO2 48.3 VBG pO2 37 VBG HCO3 30 H VBG Total CO2 29 VBG O2 Saturation 70 VBG Base Excess 4.6 H FiO2 % 45.0 % Sodium Potassium Chloride Carbon Dioxide BUN Creatinine Estimated GFR BUN/Creatinine Ratio Glucose Lactate Calcium Total Bilirubin AST ALT Alkaline Phosphatase Total Protein Albumin Globulin Albumin/Globulin Ratio Lipase Procalcitonin Urine Color Urine Appearance Urine pH Ur Specific Proctor Urine Protein Urine Glucose (UA) Urine Ketones Urine Occult Blood Urine Nitrate Urine Bilirubin Urine Urobilinogen Ur Leukocyte Esterase Urine RBC Urine WBC Ur Squamous Epith Cells Urine Bacteria Ur Culture Indicated? Vol Urine Centrifuged SARS-CoV-2 (PCR) Influenza A (RT-PCR) Influenza B (RT-PCR) RSV (PCR) Assessment & Plan Time-Based Coding :: [TOTAL MINUTES] spent with patient and on the chart (including review of chart, obtaining history, exam, reviewing outside data, placing orders, documenting exam and treatment plan, and counseling patient) on [DATE]. PROFEE Donkey Doctor Document charge(s): Yes
--- NOTE | 2024-11-26 00:08 | PM.OP.1 ---
Operative Date/Time/Diagnoses Date of procedure: 11/25/24 Time of procedure: 11:30 Pre-op diagnosis: Confusion x3 days altered mental status chest x-ray showing a left pneumothorax with left lung mass Post-op diagnosis: same (Same proximally 60 cc of clear yellow fluid chest x-ray showing chest tube in appropriate position mild resolution of the pneumothorax) Procedure & Clinicians Procedure: Left chest tube thoracostomy Number 28 Martiniquais Same procedure(s) as scheduled: Yes (Same) Surgeon: Taiwo House Assisted?: No Anesthesia Type: Sedation (Valium 2 mg morphine 4 mg IV push xylocaine 1% with epi) Operative Notes Findings: Patient was seen in the ER for consultation of left chest tube for spontaneous pneumothorax. Discussed with as patient is obtunded procedure risks and complications including risk for cardiopulmonary depression infection bleeding lung injury vascular injury she understands and consents. Patient was slightly agitated was given soft restraints and also IV sedation prepped and draped in usual sterile fashion with Sina patient had xylocaine 1% with epi was used to anesthetize the 5th 6 interspace including skin subcu intercostal muscles introduced into the pleural space with air return this was further injected incision was made with a 15. Knife blade. Finger was introduced in the pleural space no palpable masses or diaphragm was palpated. A number 28 Martiniquais chest tube was clamped at the appropriate distance for insertion and utilizing a hemostat was directed into the pleural cavity and then placed with previous prepared Pleur-evac water suction. Chest tube was sutured in place with 0 silk x2. Covered with a dry drain sponge bulky 4x4s and held in place with the wide silk tape all tubing connections was taped with silk tape. The patient showed good tiling about 60 cc of clear yellow fluid was noted no blood. And active air leak was noted. Chest x-ray was performed which shows partial re-expansion of the lung with appropriate position of the chest tube. Patient tolerated procedure well without incident complication. First and 2nd sponge instrument and needle counts found to be correct. We will admit patient to the hospital daily portable chest x-rays we will restrain the patient as he is at risk for pulling the tube out also we will give sedation as needed. Patient also be placed on IV antibiotics. Specimen(s): none sent Prosthetic devices, grafts, tissues, transplants, or devices: Left Number 28 Martiniquais thoracostomy tube Applied: device(s) Estimated Blood Loss (mL): 5 Complications: none Post-operative Condition: stable Disposition: Acute Care
--- NOTE | 2024-11-26 00:15 | PC.NURSE ---
28Fr chest tube placed in left chest wall per Dr House, without difficulty and placed to 20 cm H2O suction pt tolerated procedure well, CXR done after procedure to check placement
--- NOTE | 2024-11-26 00:17 | DI.CT.S_ITS ---
PROCEDURE: CT ANGIO CHEST PE PROTOCOL INDICATIONS: SOB, chest tube, possible pneumonia on chest xray TECHNIQUE: After the administration of intravenous contrast, 2 mm thick sections acquired from the pulmonary apices to the posterior costophrenic angles. 3-dimensional maximum intensity projection (MIP) coronal and sagittal reformats were then acquired through the thorax. For radiation dose reduction, the following was used: automated exposure control, adjustment of mA and/or kV according to patient size. COMPARISON: [facility], [place], PET NECK TO MID THIGH, 09/13/2024, 10:27. [facility], CT, CT ANGIO CHEST PE PROTOCOL, 09/29/2024, 0:32. FINDINGS: Image quality: Diagnostic. Pulmonary arteries: Pulmonary arteries are normal in size, and demonstrate no intraluminal filling defects to suggest central pulmonary embolism. Lower Neck: No enlarged lymph nodes. Thyroid: No thyroid nodules which require sonographic follow up, per consensus guidelines. Axillae: No enlarged lymph nodes. Chest Wall: Scant left subcutaneous emphysema. Right-sided port with the catheter tip at the middle 3rd of the SVC. Bones: No suspicious osseous lesion. Lungs and Pleura: Severe emphysematous change. Bronchial wall thickening and distal mucus airway plugging. Secretions in the left mainstem bronchus. Left upper lobe bronchus is occluded, (), worsened. Left upper lobe is collapsed. Trace left pneumothorax. Left-sided chest tube with the tip at the apex. Mild opacity at the left lower lobe. Scant pleural fluid. Heart: Heart size is normal. No pericardial effusion. Thoracic Vessels: No aortic aneurysm. Mediastinum and Telma: Left hilar mass or conglomerate adenopathy. Right hilar node measuring 2.2 cm, (6/121). Precarinal node measuring 3 cm, (6/90). Esophagus: No wall thickening. No hiatal hernia. Upper Abdomen: Visualized upper abdomen solid organs and bowel loops appear normal. IMPRESSION: 1. No pulmonary embolism. 2. Scant left pneumothorax. Left-sided chest tube. 3. Left hilar mass. Mediastinal and hilar adenopathy. 4. Debris within the left mainstem bronchus. Left bronchus is occluded more distally. Left upper lobe is collapsed. Mild postobstructive pneumonia at the left lower lobe. Dictated by: James Rose M.D. on 11/26/2024 at 2:08 Approved by: James Rose M.D. on 11/26/2024 at 2:20
--- NOTE | 2024-11-26 00:45 | PC.NURSE ---
pt to CT with monitor, O2, and 2 RNS
--- NOTE | 2024-11-26 01:05 | PC.NURSE ---
returned from CT
[2024-11-26] MEDS: MIDAZOLAM 2 MG/2 ML VIAL 4 MG IV (01:50)
[2024-11-26] MEDS: AZITHROMYCIN 500 MG in DEXTROSE 5% IN WATER 250 ML 250 MG IV (02:41)
[2024-11-26] MEDS: MIDAZOLAM 5 MG/ML VIAL 4 MG IV (03:29)
--- NOTE | 2024-11-26 03:30 | PC.NURSE ---
pt becoming combative again and restless trying to pull at his lines, pt unable to verbalize pain, but appears uncomfortable, medicated as ordered
--- NOTE | 2024-11-26 04:51 | PC.NURSE ---
pt calm after medication does not appear to be having any pain, continues at bedside,
--- NOTE | 2024-11-26 05:33 | PC.NURSE ---
report given to [facility] RN, pt continues with no change in condition, pt starting to become restless, medicated per [employer] crew, assisted with pt transfer to [employer] stretcher and secured
--- NOTE | 2024-11-26 09:05 | PM.DS.IH.1 ---
History of Present Illness History of Present Illness Date Patient Seen: 11/24/24 Time Patient Seen: 08:00 Date of Onset of Symptoms: 11/22/24 Chief complaint: AMS Narrative: Patient is a 69-year-old white male presents to the emergency room with altered mental status confusion x3 days and more agitation. On presentation was noted to have decreased SaO2 chest x-ray shows a left pneumothorax with left apical lung mass patient has a history of left lung cancer with Mets for 10 years. I was asked see the patient for placement of chest tube. The patient is confused history as per . Discussed the need for placement of left thoracostomy tube procedure risks and complications were fully explained including risk for cardiopulmonary depression infection bleeding lung injury vascular injury she understands and consents. Patient's admitting laboratory shows WBC is 16.9 hemoglobin is 10.9 hematocrit is 33.1 platelets are 203,000 PT is 10.9 INR 1.0 PTT is 25 albumin is 2.8 lactic acid level was 1.9 sodium is 131 potassium 4.1 chloride 101 bicarb is 27 BUN 19 creatinine 0.5 to random blood sugar is 126 normal LFTs alkaline phosphatase is 183 venous ABG was performed pH of 7.4 PO2 is 37 pCO2 is 48.3 bicarb is 30 SaO2 is 70%. 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 Patient family deny any other heart lungs digestive musculoskeletal neurological seizure disorder psychiatric problems risks Infectious diseases HIV or AIDS. Past surgical history: History of left lung biopsy, bronchoscopy, right chemo port, hemorrhoidectomy, colon resection with anastomosis in 2015 for colon cancer, EGD, colonoscopy done 1 month ago negative Social history: History of tobacco abuse 1 pack per day times 51 years. Ten years ago, denies any alcohol since 2015, denies any recreational drug usage. Vitals: Temperature is 97.6? pulse 102 respirations 22 BP is 161/81 SaO2 is 90% on 3 L, patient weighs 154 lb. Patient is slightly confused does not directly answer questions head is normocephalic eyes can not be evaluated some not opening eyes spontaneously nares are clear oropharyngeal cavity is in moderate repair heart regular rate and rhythm with slight tachycardia. Lungs diminished breath sounds none noted on left. Abdomen is soft nondistended no masses or peritoneal signs musculoskeletal patient is moving all extremities. Impression: Confusion x3 days with altered mental status Left spontaneous pneumothorax History of left lung cancer with Mets to the right lung and brain times 10 years treated with chemo and radiation COPD on home oxygen Anxiety AFib not on any anticoagulation Hypertension History of colon cancer treated with a colon resection in 2015 History of tobacco abuse 1 pack per day times 51 years. Ten years ago Plan: Discussed with the findings need for left chest tube procedure risks and complications were fully explained including risk for cardiopulmonary depression infection lung injury vascular injury she understands and consents we will place at bedside with sedation we will placed on Pleur-evac suction and evaluate with daily portable chest x-rays all questions were answered to 's satisfaction. Discharge Providers Provider Discharge Date: 11/24/24 Primary care physician: Bill Mijares MD Discharge provider: Taiwo House DO Exam Vital Signs (past 8 hours): - 11/26/24 01:30 11/26/24 01:30 11/26/24 02:00 Temperature 95.2 F L 95.0 F L Pulse Rate 87 89 Respiratory Rate 28 H 29 H Blood Pressure 133/75 Pulse Oximetry 95 93 11/26/24 02:00 11/26/24 02:30 11/26/24 02:50 Temperature 95.2 F L Pulse Rate 85 Respiratory Rate 27 H Blood Pressure 130/68 132/75 Pulse Oximetry 95 11/26/24 02:50 11/26/24 03:00 11/26/24 03:00 Temperature 95.4 F L 95.4 F L Pulse Rate 96 H 94 H Respiratory Rate 27 H 38 H Blood Pressure 134/87 Pulse Oximetry 94 93 11/26/24 03:30 11/26/24 03:30 11/26/24 04:00 Temperature 95.5 F L 95.4 F L Pulse Rate 89 82 Respiratory Rate 41 H 42 H Blood Pressure 126/77 Pulse Oximetry 93 98 11/26/24 04:00 11/26/24 04:30 11/26/24 04:30 Temperature 95.4 F L Pulse Rate 78 Respiratory Rate 38 H Blood Pressure 121/71 128/78 Pulse Oximetry 96 11/26/24 05:00 11/26/24 05:02 11/26/24 05:02 Temperature 95.4 F L 95.4 F L Pulse Rate 85 85 Respiratory Rate 46 H 34 H Blood Pressure 136/80 Pulse Oximetry 92 92 Oxygen Delivery Method Nasal Cannula Oxygen Flow Rate 2 Objective Labs 11/25/24 21:15 11/25/24 21:15 Labs: Laboratory Results - last 24 hr 11/25/24 11/25/24 11/25/24 21:15 21:40 21:50 WBC 16.9 H RBC 3.55 L Hgb 10.9 L Hct 33.1 L MCV 93.3 MCH 30.5 MCHC 32.7 RDW 19.5 H Plt Count 203 Neut % (Auto) 93.6 H Lymph % (Auto) 2.9 L [place] % (Auto) 2.8 L Eos % (Auto) 0.0 L Baso % (Auto) 0.7 Neut # (Auto) 20486 H Lymph # (Auto) 500 L Starke # (Auto) 500 Eos # (Auto) 0 Baso # (Auto) 100 PT 10.9 INR 1.0 APTT 25 L VBG pH VBG pCO2 VBG pO2 VBG HCO3 VBG Total CO2 VBG O2 Saturation VBG Base Excess FiO2 % Sodium 131 L Potassium 4.1 Chloride 101 Carbon Dioxide 27 BUN 19 Creatinine 0.52 L Estimated GFR > 60 BUN/Creatinine Ratio 36.5 H Glucose 126 H Lactate 1.9 Calcium 7.7 L Total Bilirubin 0.5 AST 35 ALT 32 Alkaline Phosphatase 183 H Total Protein 5.4 L Albumin 2.8 L Globulin 2.6 Albumin/Globulin Ratio 1.1 Lipase 44 Procalcitonin 0.455 Urine Color Yellow Urine Appearance Clear Urine pH 6.0 Ur Specific [place] 1.015 Urine Protein Negative Urine Glucose (UA) Negative Urine Ketones Negative Urine Occult Blood Negative Urine Nitrate Negative Urine Bilirubin Negative Urine Urobilinogen 0.2 Ur Leukocyte Esterase Negative Urine RBC None seen Urine WBC None seen Ur Squamous Epith Cells None seen Urine Bacteria None seen Ur Culture Indicated? Cult not indicated Vol Urine Centrifuged 10ml (spun) SARS-CoV-2 (PCR) Negative Influenza A (RT-PCR) Flu a negative Influenza B (RT-PCR) Flu b negative RSV (PCR) Negative 11/25/24 21:51 WBC RBC Hgb Hct MCV MCH MCHC RDW Plt Count Neut % (Auto) Lymph % (Auto) [place] % (Auto) Eos % (Auto) Baso % (Auto) Neut # (Auto) Lymph # (Auto) [place]ke # (Auto) Eos # (Auto) Baso # (Auto) PT INR APTT VBG pH 7.40 VBG pCO2 48.3 VBG pO2 37 VBG HCO3 30 H VBG Total CO2 29 VBG O2 Saturation 70 VBG Base Excess 4.6 H FiO2 % 45.0 % Sodium Potassium Chloride Carbon Dioxide BUN Creatinine Estimated GFR BUN/Creatinine Ratio Glucose Lactate Calcium Total Bilirubin AST ALT Alkaline Phosphatase Total Protein Albumin Globulin Albumin/Globulin Ratio Lipase Procalcitonin Urine Color Urine Appearance Urine pH Ur Specific [place] Urine Protein Urine Glucose (UA) Urine Ketones Urine Occult Blood Urine Nitrate Urine Bilirubin Urine Urobilinogen Ur Leukocyte Esterase Urine RBC Urine WBC Ur Squamous Epith Cells Urine Bacteria Ur Culture Indicated? Vol Urine Centrifuged SARS-CoV-2 (PCR) Influenza A (RT-PCR) Influenza B (RT-PCR) RSV (PCR) [facility] Medical History (Updated 11/26/24 @ 02:55 by Jaime Koenig DO) Bilateral hearing loss Herniated nucleus pulposus, L4-5 Lumbar spinal stenosis History of colon cancer in adulthood (~2017) Chronic right hip pain Pain of right lower extremity Lower back pain Esophagitis (10/28/16) Atrial fibrillation (04/2014) Lung cancer (04/2014) Back pain Frequent UTI Surgical History History of esophagogastroduodenoscopy (EGD) (10/20/16) Status post colonoscopy (10/20/16) Status post hemorrhoidectomy (07/02/08) Status post biopsy (04/2014) Social History household members: spouse Smoking Status: Never smoker Tobacco: How many years used: 50 alcohol intake: former substance use type: does not use Discharge Assessment & Plan Assessment and Plan Assessment: Patient had spontaneous right pneumothorax with failure of chest tube resolved the pneumothorax with persistent pleural leak and respiratory failure. Patient was discharged to to a higher level of care for definitive care of the persistent pneumothorax care of CV surgeon. Patient was transferred in satisfactory condition. Discharge Plan Departure Patient Disposition: [facility] Clinical Impression: Pneumonia, Pneumothorax, Bleeding in brain Prescriptions: No Action oxycodone 10 mg tablet 10 mg PO Q6H PRN (Reason: Pain, Moderate) lisinopril 20 mg tablet 20 mg PO DAILY Qty: 90 2RF amlodipine 5 mg tablet 5 mg PO DAILY Qty: 90 2RF albuterol sulfate 2.5 mg /3 mL (0.083 %) solution for nebulization 2.5 mg inhalation Q4-6H PRN (Reason: shortness of breath or wheezing) Qty: 180 9RF albuterol sulfate 90 mcg/actuation HFA aerosol inhaler 2 puff INHALATION Q4-6H PRN (Reason: shortness of breath or wheezing) Qty: 8 1RF Stiolto Respimat 2.5-2.5 mcg/actuation mist 2 puff inhalation DAILY Qty: 4 11RF nystatin 100,000 unit/mL suspension See Rx Instructions PO QID Qty: 473 0RF Rx Instructions: 500,000 units 4 times daily; swish in the mouth and retain for as long as possible (several minutes) before swallowing. Total 7 days at a time carboplatin 150 mg recon soln 600 mg IV Q3W dexamethasone 4 mg tablet 4 mg PO DAILY ipratropium bromide 0.02 % solution 2.5 ml inhalation Q6H MDD 10mL PRN (Reason: shortness of breath or wheezing) Qty: 900 3RF folic acid 1 mg Tablet 2 mg PO DAILY Rx Instructions: Take 1 tablet (1 mg total) by mouth daily initiate one week prior to prmetrexed chemotherapy and continue for 3 weeks after last dose of premtrexed. famotidine 20 mg Tablet 20 mg PO BEDTIME Qty: 90 0RF Rx Instructions: 1 tab at bedtime to protect stomach while taking steroids ondansetron 8 mg tablet,disintegrating 8 mg PO 3XD PRN (Reason: nausea and vomiting) lorazepam 0.5 mg tablet 0.5 mg PO Q6H PRN (Reason: anxiety) prednisone 20 mg tablet 20 mg PO BID Qty: 20 0RF levofloxacin 500 mg tablet 500 mg PO DAILY Qty: 4 0RF Referrals: Bill Mijares MD [Primary Care Provider, Family Practice] PROFEE Charge Codes Discharge inpatient/observation: [id number] (Discharge to higher level of care)
--- NOTE | 2024-11-26 23:02 | PC.NURSE ---
note for 09/25 [address] chest tube, only the 2mg ordered was given it was overridden in the pyxsis d/t the immediate need as pt was very agitated only one syringe pulled
[2024-11-30 17:08] LABS: Acinetobacter calcoa-baumannii Not Detected (Not Detect); Bacteroides fragilis Not Detected (Not Detect); Candida auris Not Detected (Not Detect); Candida glabrata Not Detected (Not Detect); Cryptococcus neoformans/gatti Not Detected (Not Detect); Enterobacterales Not Detected (Not Detect); Enterococcus faecalis Not Detected (Not Detect); Enterococcus faecium Not Detected (Not Detect); Klebsiella aerogenes Not Detected (Not Detect); Proteus species Not Detected (Not Detect); Serratia marcescens Not Detected (Not Detect); Staphylococcus epidermidis Not Detected (Not Detect); Staphylococcus lugdunensis Not Detected (Not Detect); Staphylococcus species Not Detected (Not Detect); Stenotrophomonas maltophilia Not Detected (Not Detect); Streptococcus agalactiae (Gr B Not Detected (Not Detect); Streptococcus pneumonia Not Detected (Not Detect); Streptococcus pyogenes (Gr A) Not Detected (Not Detect); Streptococcus species Not Detected (Not Detect)
== END 2024-11-26 05:45 | disposition short-term general hospital (02) ==
PROVIDERS: Emergency Provider Family Medicine; Family Provider Family Medicine; PCP Family Medicine
DX: J18.9 Pneumonia, unspecified organism (principal); J93.11 Primary spontaneous pneumothorax; I61.2 Nontraumatic intracerebral hemorrhage in hemisphere, unspecified; J44.9 Chronic obstructive pulmonary disease, unspecified; Z99.81 Dependence on supplemental oxygen
CPT/HCPCS: 32551; 36415; 70450; 71045; 71275; 80053; 81001; 82805; 83605; 83690; 84145; 85025; 85610; 85730; 87040; 87154; 87637; 93005; 96361; 96365; 96375; 96376; 99285; 99291; 99292; J0696; J2250; J2272; J3360; J7050; J7060; J7120; Q9967